=== PATIENT | female | born 1960 | race Caucasian/White ===

== ENCOUNTER 2016-05-13 10:45 | Outpatient (CLI) | payer MEDICARE, OTHER | END 2016-05-13 10:46 | disposition home or self-care (01) | DX: E11.65 Type 2 diabetes mellitus with hyperglycemia (principal) ==

== ENCOUNTER 2016-08-20 08:50 | Outpatient (CLI) | payer MEDICARE, OTHER ==
[2016-08-20 20:30] LABS: HEMOGLOBIN A1C 1.14 g/dL
== END 2016-08-20 08:51 | disposition home or self-care (01) ==
LOC: LAB.N 08:50
PROVIDERS: ATTEND Nurse Practitioner Gerontology
DX: E11.65 Type 2 diabetes mellitus with hyperglycemia (principal)
CPT/HCPCS: 36415; 83036

== ENCOUNTER 2016-12-10 08:00 | Outpatient (CLI) | payer MEDICARE, OTHER ==
[2016-12-10 21:06] LABS: HEMOGLOBIN A1C 0.97 g/dL
== END 2016-12-10 08:01 | disposition home or self-care (01) ==
LOC: LAB.N 08:00
PROVIDERS: ATTEND Nurse Practitioner Gerontology
DX: E11.65 Type 2 diabetes mellitus with hyperglycemia (principal)
CPT/HCPCS: 36415; 83036

== ENCOUNTER 2017-05-30 18:32 | Outpatient (CLI) | payer MEDICARE, OTHER | END 2017-05-30 18:33 | disposition short-term general hospital (02) | LOC: EMS 18:32 | PROVIDERS: ATTEND Surgery | DX: M25.542 Pain in joints of left hand (principal); M25.531 Pain in right wrist | CPT/HCPCS: A0425; A0429; A0888 ==

== ENCOUNTER 2017-06-20 08:00 | Outpatient (CLI) | payer MEDICARE, OTHER ==
[2017-06-20 18:45] LABS: BASOPHILS % (AUTO) 0.2 %; EOSINOPHILS # (AUTO) 0.1 10^3/uL (0.0-0.7); EOSINOPHILS % (AUTO) 1.7 %; HGB - HEMOGLOBIN 13.2 g/dL (12.0-16.0); LYMPHOCYTES # (AUTO) 3.6 10^3/uL (1.5-3.5); LYMPHOCYTES % (AUTO) 43.7 %; MEAN CORPUSCULAR HEMOGLOBIN 27.4 pg (27.0-31.0); MEAN CORPUSCULAR HGB CONC 32.1 g/dL (32.0-36.0); MEAN CORPUSCULAR VOLUME 85.4 fL (81.0-99.0); MEAN PLATELET VOLUME 8.4 fL (7.9-10.8); MONOCYTES # (AUTO) 0.4 10^3/uL (0.0-1.0); MONOCYTES % (AUTO) 5.2 %; NEUTROPHILS # (AUTO) 4.1 10^3/uL (1.5-6.6); NEUTROPHILS % (AUTO) 49.2 %; PLT - PLATELET COUNT 355 10^3/uL (130-450); WHITE BLOOD COUNT 8.2 x10^3/uL (4.8-10.8)
[2017-06-20 19:19] LABS: ALBUMIN 3.6 g/dL (3.2-5.5); ALBUMIN/GLOBULIN RATIO 0.9 (1.0-2.2); ALKALINE PHOSPHATASE 175 IU/L (42-121); ALT ALANINE AMINOTRANSFERASE 19 IU/L (10-60); AST ASPARTATE AMINOTRANSFERASE 22 IU/L (10-42); BILIRUBIN,TOTAL < 0.2 mg/dL (0.2-1.0); BUN - BLOOD UREA NITROGEN 12 mg/dL (6-20); CALCIUM 8.5 mg/dL (8.5-10.3); CARBON DIOXIDE - CO2 25 mmol/L (21-32); CHLORIDE 106 mmol/L (101-111); CHOL/HDL RATIO 3.3 (<4.4); CHOLESTEROL 182 mg/dL; CREATININE 0.5 mg/dL (0.4-1.0); GFR - MDRD 129 (>89); GLUCOSE 217 mg/dL (70-100); HDL CHOLESTEROL 56 mg/dL; LDL CHOLESTEROL,CALCULATED 81 mg/dL; LDL/HDL RATIO 1.4 (<4.4); SODIUM 134 mmol/L (135-145); TOTAL PROTEIN 7.8 g/dL (6.7-8.2); VLDL CHOLESTEROL 45 mg/dL
[2017-06-20 19:56] LABS: HEMOGLOBIN A1C 1.28 g/dL
== END 2017-06-20 08:01 | disposition home or self-care (01) ==
LOC: LAB.N 08:00
PROVIDERS: ATTEND Nurse Practitioner Gerontology
DX: I10 Essential (primary) hypertension (principal); E11.65 Type 2 diabetes mellitus with hyperglycemia
CPT/HCPCS: 36415; 80053; 80061; 83036; 83721; 84443; 85025

== ENCOUNTER 2017-06-23 09:15 | Outpatient (CLI) | payer MEDICARE, OTHER | END 2017-06-23 09:30 | disposition home or self-care (01) | LOC: RT.N 09:15 | PROVIDERS: ATTEND Nurse Practitioner Gerontology | DX: Z01.810 Encounter for preprocedural cardiovascular examination (principal); I10 Essential (primary) hypertension; E11.65 Type 2 diabetes mellitus with hyperglycemia | CPT/HCPCS: 93005 ==

== ENCOUNTER 2018-01-09 08:00 | Outpatient (CLI) | payer MEDICARE, OTHER ==
[2018-01-09 18:52] LABS: BASOPHILS % (AUTO) 0.6 %; EOSINOPHILS # (AUTO) 0.1 10^3/uL (0.0-0.7); EOSINOPHILS % (AUTO) 1.8 %; LYMPHOCYTES # (AUTO) 3.1 10^3/uL (1.5-3.5); LYMPHOCYTES % (AUTO) 43.7 %; MEAN CORPUSCULAR HGB CONC 32.9 g/dL (32.0-36.0); MEAN CORPUSCULAR VOLUME 88.4 fL (81.0-99.0); MEAN PLATELET VOLUME 8.7 fL (7.9-10.8); MONOCYTES # (AUTO) 0.4 10^3/uL (0.0-1.0); MONOCYTES % (AUTO) 6.1 %; NEUTROPHILS # (AUTO) 3.4 10^3/uL (1.5-6.6); NEUTROPHILS % (AUTO) 47.8 %; PLT - PLATELET COUNT 305 10^3/uL (130-450); RED BLOOD COUNT 4.81 10^6/uL (4.20-5.40); RED CELL DISTRIBUTION WIDTH 14.2 % (12.0-15.0); WHITE BLOOD COUNT 7.2 x10^3/uL (4.8-10.8)
[2018-01-09 19:20] LABS: ALBUMIN 3.6 g/dL (3.2-5.5); ALBUMIN/GLOBULIN RATIO 0.9 (1.0-2.2); ALKALINE PHOSPHATASE 132 IU/L (42-121); ALT ALANINE AMINOTRANSFERASE 23 IU/L (10-60); AST ASPARTATE AMINOTRANSFERASE 24 IU/L (10-42); BILIRUBIN,TOTAL 0.9 mg/dL (0.2-1.0); BUN - BLOOD UREA NITROGEN 13 mg/dL (6-20); CHOLESTEROL 173 mg/dL; CREATININE 0.4 mg/dL (0.4-1.0); GFR - MDRD 166 (>89); HDL CHOLESTEROL 58 mg/dL; LDL CHOLESTEROL,CALCULATED 95 mg/dL; LDL/HDL RATIO 1.6 (<4.4); MAGNESIUM 1.9 mg/dL (1.7-2.8); TOTAL PROTEIN 7.5 g/dL (6.7-8.2); VLDL CHOLESTEROL 20 mg/dL
[2018-01-09 19:31] LABS: HB2 TOTAL 14.4 g/dL; HEMOGLOBIN A1C 1.47 g/dL; HEMOGLOBIN A1C % 11.5 % (4.6-6.2)
[2018-01-09 19:34] LABS: CALCIUM 8.6 mg/dL (8.5-10.3); CARBON DIOXIDE - CO2 24 mmol/L (21-32); CHLORIDE 102 mmol/L (101-111); GLUCOSE 256 mg/dL (70-100); SODIUM 135 mmol/L (135-145)
== END 2018-01-09 23:59 | disposition home or self-care (01) ==
LOC: LAB.N 08:00
PROVIDERS: ATTEND Internal Medicine Cardiovascular Disease
DX: I45.10 Unspecified right bundle-branch block (principal); Z13.220 Encounter for screening for lipoid disorders; E11.9 Type 2 diabetes mellitus without complications; I10 Essential (primary) hypertension; E11.65 Type 2 diabetes mellitus with hyperglycemia
CPT/HCPCS: 36415; 80053; 80061; 83036; 83721; 83735; 84443; 85025

== ENCOUNTER 2018-07-13 08:00 | Outpatient (CLI) | payer MEDICARE, OTHER ==
[2018-07-13 14:49] LABS: HB2 TOTAL 14.1 g/dL; HEMOGLOBIN A1C 1.51 g/dL; HEMOGLOBIN A1C % 11.9 % (4.6-6.2)
== END 2018-07-13 23:59 | disposition home or self-care (01) ==
LOC: LAB.N 08:00
PROVIDERS: ATTEND Nurse Practitioner Gerontology
DX: E11.8 Type 2 diabetes mellitus with unspecified complications (principal)
CPT/HCPCS: 36415; 83036

== ENCOUNTER 2019-07-14 13:30 | Outpatient (CLI) | payer MEDICARE, OTHER ==
[2019-07-14 17:47] LABS: BASOPHILS % (AUTO) 0.2 %; EOSINOPHILS # (AUTO) 0.1 10^3/uL (0.0-0.7); EOSINOPHILS % (AUTO) 1.5 %; HGB - HEMOGLOBIN 13.9 g/dL (12.0-16.0); LYMPHOCYTES # (AUTO) 3.3 10^3/uL (1.5-3.5); LYMPHOCYTES % (AUTO) 39.4 %; MEAN CORPUSCULAR HGB CONC 32.6 g/dL (32.0-36.0); MEAN PLATELET VOLUME 10.7 fL (7.9-10.8); MONOCYTES # (AUTO) 0.4 10^3/uL (0.0-1.0); MONOCYTES % (AUTO) 5.1 %; NEUTROPHILS # (AUTO) 4.5 10^3/uL (1.5-6.6); NEUTROPHILS % (AUTO) 53.6 %; PLT - PLATELET COUNT 307 10^3/uL (130-450); RED CELL DISTRIBUTION WIDTH 13.5 % (12.0-15.0); WHITE BLOOD COUNT 8.4 x10^3/uL (4.8-10.8)
[2019-07-14 18:23] LABS: ALBUMIN 3.4 g/dL (3.2-5.5); ALBUMIN/GLOBULIN RATIO 0.9 (1.0-2.2); ALKALINE PHOSPHATASE 129 IU/L (42-121); ALT ALANINE AMINOTRANSFERASE 26 IU/L (10-60); AST ASPARTATE AMINOTRANSFERASE 25 IU/L (10-42); BILIRUBIN,TOTAL 0.8 mg/dL (0.2-1.0); BUN - BLOOD UREA NITROGEN 16 mg/dL (6-20); CALCIUM 8.7 mg/dL (8.5-10.3); CARBON DIOXIDE - CO2 27 mmol/L (21-32); CHLORIDE 103 mmol/L (101-111); CHOL/HDL RATIO 3.3 (<4.4); CHOLESTEROL 181 mg/dL; CREATININE 0.5 mg/dL (0.4-1.0); GLUCOSE 430 mg/dL (70-100); HDL CHOLESTEROL 55 mg/dL; LDL CHOLESTEROL,CALCULATED 93 mg/dL; LDL/HDL RATIO 1.7 (<4.4); SODIUM 136 mmol/L (135-145); TOTAL PROTEIN 7.4 g/dL (6.7-8.2); VLDL CHOLESTEROL 33 mg/dL
[2019-07-14 18:25] LABS: HB2 TOTAL 14.4 g/dL; HEMOGLOBIN A1C 1.58 g/dL; HEMOGLOBIN A1C % 12.2 % (4.6-6.2)
[2019-07-14 18:28] LABS: CREATININE,URINE 28.2 mg/dL
[2019-07-14 18:31] LABS: MICROALBUMIN,URINE < 0.2 mg/dL (0-300.0)
== END 2019-07-14 23:59 | disposition home or self-care (01) ==
LOC: LAB.WCP 13:30
PROVIDERS: ATTEND Family Medicine
DX: E11.65 Type 2 diabetes mellitus with hyperglycemia (principal)
CPT/HCPCS: 36415; 80053; 80061; 82043; 82570; 83036; 83721; 84443; 85025

== ENCOUNTER 2019-11-19 13:30 | Outpatient (CLI) | payer MEDICARE, OTHER ==
[2019-11-19 13:53] LABS: CREATININE 0.7 mg/dL (0.4-1.0)
[2019-11-19] MEDS ORDERED: GADOBUTROL 10 MMOL/10 ML VIAL ONE (16:11)
[2019-11-19] MEDS ORDERED: GADOBUTROL 10 MMOL/10 ML VIAL IVP ONE (16:18)
--- NOTE | 2019-11-19 16:53 | MRI Report ---
PROCEDURE: Brain W/WO INDICATIONS: HX OF CVA/DIPLOPIA CONTRAST: IV CONTRAST: Gadavist ml: 10 TECHNIQUE: Noncontrast axial T1 spin echo, axial T2 fast spin echo, sagittal and axial FLAIR, coronal T2 fast sp in echo, axial gradient echo, axial diffusion and ADC through the brain. After the administration of contrast, axial and coronal T1 spin echo with fat saturation through the brain. COMPARISON: None. FINDINGS: Image quality: Excellent. CSF spaces: Basal cisterns are patent. No extra-axial fluid collections. Ventricles are normal in size and shape. Brain: No midline shift. No intracranial bleeds or masses. No abnormal intracranial enhancement. There is cerebral volume loss for age. There is periventricular white matter chronic small vessel is chemic change. The brainstem appears normal. Diffusion-weighted images demonstrate no acute ischemi c insults. No chronic ischemic insults. Normal intravascular flow voids are present. Skull and face: Right frontal calvarial enhancement measuring 9 mm is technically indeterminate. Orb its appear normal. Sinuses: Sinuses and mastoids appear clear. IMPRESSION: No acute intracranial abnormality or abnormal enhancement. No evidence of acute ischemia . Diffuse, scattered nonspecific white matter signal changes, statistically represent chronic microvasc ular ischemic disease although differential includes neurodegenerative, infectious/inflammatory, demy elinating etiologies among other possibilities. Nonspecific small focus of right frontal calvarial enhancement Reviewed by: Erasmo Ramirez MD on 11/19/2019 4:52 PM PDT Approved by: Erasmo Ramirez MD on 11/19/2019 4:52 PM PDT Station ID: [id number]
--- NOTE | 2019-11-22 12:01 | MRI Report ---
PROCEDURE: 1. MR angiography of the head. 2. MR angiography of the neck. INDICATIONS: HX OF CVA/DIPLOPIA CONTRAST: Intravenous gadolinium. TECHNIQUE: Brain MRA: Non-contrast 3-D time of flight MR angiogram, with multiple lbynewt-wlwretygx-xispabqkqj (MIP) reformats performed. Neck MRA: Axial and sagittal TruFISP through the neck. Coronal dynamic MR angiogram during administ ration of contrast in the arterial and venous phases, with 3-dimenstional wigclaz-nrsfolhvx-moxvdnowq n (MIP) reformats constructed from subtraction images. COMPARISON: None. FINDINGS: Image quality: Excellent. BRAIN MR ANGIOGRAM: Anterior circulation: Intracranial internal carotid arteries are normal in size and enhancement. Th e flow within the paired anterior cerebral arteries is normal and symmetric. The flow within the mid dle cerebral arteries is normal and symmetric. The anterior communicating artery is seen. No stenos es, occlusions, or aneurysms. Posterior circulation: The visualized portions of the vertebral arteries demonstrate normal caliber. The right vertebral artery terminates in a posterior inferior cerebellar artery. Basilar artery is p atent. The flow within the posterior cerebral arteries is normal and symmetric. No stenoses, occlusi ons, or aneurysms. NECK MR ANGIOGRAM: The mid and distal common carotid arteries are patent. Bilateral internal and axial carotid arteries are patent. Visualized portions of the vertebral arteries are patent. No aneurysm or significant sten osis. Visualized soft tissues of the neck are within normal limits. IMPRESSION: BRAIN MR ANGIOGRAM: Negative cerebral MR angiography. NECK MR ANGIOGRAM: 1. No internal carotid artery stenosis bilaterally. 2. Visualized portions of the vertebral arteries are patent. The estimate of stenosis included in the report of the imaging study was calculated using the NASCET method Reviewed by: Preeti Yan MD on 11/22/2019 12:00 PM PDT Approved by: Preeti Yan MD on 11/22/2019 12:00 PM PDT Station ID: [id number]
== END 2019-11-19 13:31 | disposition home or self-care (01) ==
LOC: DI 13:30
PROVIDERS: ATTEND Family Medicine
DX: H53.2 Diplopia (principal); Z86.73 Personal history of transient ischemic attack (TIA), and cerebral infarction without residual deficits
CPT/HCPCS: 36415; 70547; 70553; 82565; A9585

== ENCOUNTER 2020-06-05 08:00 | Outpatient (CLI) | payer MEDICARE, OTHER ==
[2020-06-05 18:35] LABS: BASOPHILS % (AUTO) 0.1 %; EOSINOPHILS # (AUTO) 0.1 10^3/uL (0.0-0.7); HCT - HEMATOCRIT 44.7 % (37.0-47.0); HGB - HEMOGLOBIN 14.6 g/dL (12.0-16.0); LYMPHOCYTES # (AUTO) 2.8 10^3/uL (1.5-3.5); LYMPHOCYTES % (AUTO) 39.3 %; MEAN CORPUSCULAR HEMOGLOBIN 28.9 pg (27.0-31.0); MEAN CORPUSCULAR HGB CONC 32.7 g/dL (32.0-36.0); MEAN CORPUSCULAR VOLUME 88.5 fL (81.0-99.0); MEAN PLATELET VOLUME 10.5 fL (7.9-10.8); MONOCYTES # (AUTO) 0.4 10^3/uL (0.0-1.0); MONOCYTES % (AUTO) 5.1 %; NEUTROPHILS # (AUTO) 3.9 10^3/uL (1.5-6.6); NEUTROPHILS % (AUTO) 54.4 %; PLT - PLATELET COUNT 327 10^3/uL (130-450); RED BLOOD COUNT 5.05 10^6/uL (4.20-5.40); RED CELL DISTRIBUTION WIDTH 13.4 % (12.0-15.0); WHITE BLOOD COUNT 7.2 x10^3/uL (4.8-10.8)
[2020-06-05 19:10] LABS: ALBUMIN 3.8 g/dL (3.2-5.5); ALKALINE PHOSPHATASE 129 IU/L (42-121); ALT ALANINE AMINOTRANSFERASE 24 IU/L (10-60); AST ASPARTATE AMINOTRANSFERASE 23 IU/L (10-42); BUN - BLOOD UREA NITROGEN 17 mg/dL (6-20); CALCIUM 9.1 mg/dL (8.5-10.3); CARBON DIOXIDE - CO2 25 mmol/L (21-32); CHLORIDE 100 mmol/L (101-111); CHOL/HDL RATIO 3.2 (<4.4); CHOLESTEROL 186 mg/dL; CREATININE 0.5 mg/dL (0.4-1.0); GFR - MDRD 127 (>89); GLUCOSE 365 mg/dL (70-100); HDL CHOLESTEROL 59 mg/dL; LDL CHOLESTEROL,CALCULATED 103 mg/dL; LDL/HDL RATIO 1.7 (<4.4); POTASSIUM 4.2 mmol/L (3.5-5.0); SODIUM 134 mmol/L (135-145); TOTAL PROTEIN 7.7 g/dL (6.7-8.2); TRIGLYCERIDES 120 mg/dL; VLDL CHOLESTEROL 24 mg/dL
[2020-06-05 19:22] LABS: THYROID STIMULATING HORMONE 1.64 uIU/mL (0.34-5.60)
[2020-06-05 20:06] LABS: ESTIMATED AVERAGE GLUCOSE 289 mg/dL (70-100); HEMOGLOBIN A1c% 11.7 % (4.27-6.07)
== END 2020-06-05 23:59 | disposition home or self-care (01) ==
LOC: LAB.WCP 08:00
PROVIDERS: ATTEND Family Medicine
DX: E11.8 Type 2 diabetes mellitus with unspecified complications (principal)
CPT/HCPCS: 36415; 80053; 80061; 83036; 83721; 84443; 85025

== ENCOUNTER 2020-10-05 08:00 | Outpatient (CLI) | payer MEDICARE, OTHER ==
[2020-10-05 17:59] LABS: BASOPHILS % (AUTO) 0.2 %; EOSINOPHILS # (AUTO) 0.1 10^3/uL (0.0-0.7); EOSINOPHILS % (AUTO) 1.6 %; HCT - HEMATOCRIT 43.8 % (37.0-47.0); HGB - HEMOGLOBIN 13.9 g/dL (12.0-16.0); LYMPHOCYTES # (AUTO) 3.7 10^3/uL (1.5-3.5); LYMPHOCYTES % (AUTO) 41.3 %; MEAN CORPUSCULAR HEMOGLOBIN 28.7 pg (27.0-31.0); MEAN CORPUSCULAR HGB CONC 31.7 g/dL (32.0-36.0); MEAN CORPUSCULAR VOLUME 90.3 fL (81.0-99.0); MONOCYTES # (AUTO) 0.6 10^3/uL (0.0-1.0); MONOCYTES % (AUTO) 6.6 %; NEUTROPHILS # (AUTO) 4.5 10^3/uL (1.5-6.6); PLT - PLATELET COUNT 378 10^3/uL (130-450); RED BLOOD COUNT 4.85 10^6/uL (4.20-5.40); RED CELL DISTRIBUTION WIDTH 13.6 % (12.0-15.0)
[2020-10-05 18:19] LABS: ALBUMIN 3.7 g/dL (3.2-5.5); ALBUMIN/GLOBULIN RATIO 0.8 (1.0-2.2); ALKALINE PHOSPHATASE 100 IU/L (42-121); ALT ALANINE AMINOTRANSFERASE 21 IU/L (10-60); AST ASPARTATE AMINOTRANSFERASE 22 IU/L (10-42); BILIRUBIN,TOTAL 0.8 mg/dL (0.2-1.0); BUN - BLOOD UREA NITROGEN 11 mg/dL (6-20); CHOL/HDL RATIO 3.2 (<4.4); CHOLESTEROL 183 mg/dL; CREATININE 0.7 mg/dL (0.4-1.0); GFR - MDRD 86 (>89); HDL CHOLESTEROL 58 mg/dL; LDL CHOLESTEROL,CALCULATED 101 mg/dL; LDL/HDL RATIO 1.7 (<4.4); TOTAL PROTEIN 8.2 g/dL (6.7-8.2); TRIGLYCERIDES 119 mg/dL; VLDL CHOLESTEROL 24 mg/dL
[2020-10-05 18:37] LABS: CALCIUM 9.7 mg/dL (8.5-10.3); CARBON DIOXIDE - CO2 27 mmol/L (21-32); CHLORIDE 98 mmol/L (101-111); GLUCOSE 133 mg/dL (70-100); POTASSIUM 4.4 mmol/L (3.5-5.0); SODIUM 138 mmol/L (135-145)
[2020-10-05 21:14] LABS: ESTIMATED AVERAGE GLUCOSE 200 mg/dL (70-100); HEMOGLOBIN A1c% 8.6 % (4.27-6.07)
== END 2020-10-05 23:59 | disposition home or self-care (01) ==
LOC: LAB.WCP 08:00
PROVIDERS: ATTEND Family Medicine
DX: E11.8 Type 2 diabetes mellitus with unspecified complications (principal)
CPT/HCPCS: 36415; 80053; 80061; 83036; 83721; 85025

== ENCOUNTER 2021-01-15 08:00 | Outpatient (CLI) | payer MEDICARE, OTHER ==
[2021-01-15 12:02] LABS: ESTIMATED AVERAGE GLUCOSE 160 mg/dL (70-100); HEMOGLOBIN A1c% 7.2 % (4.27-6.07)
[2021-01-15 12:43] LABS: ALBUMIN 3.8 g/dL (3.2-5.5); ALBUMIN/GLOBULIN RATIO 0.9 (1.0-2.2); ALKALINE PHOSPHATASE 96 IU/L (42-121); ALT ALANINE AMINOTRANSFERASE 15 IU/L (10-60); AST ASPARTATE AMINOTRANSFERASE 17 IU/L (10-42); BILIRUBIN,TOTAL 0.8 mg/dL (0.2-1.0); BUN - BLOOD UREA NITROGEN 15 mg/dL (6-20); CALCIUM 9.2 mg/dL (8.5-10.3); CARBON DIOXIDE - CO2 26 mmol/L (21-32); CHLORIDE 105 mmol/L (101-111); CHOL/HDL RATIO 3.1 (<4.4); CHOLESTEROL 171 mg/dL; CREATININE 0.6 mg/dL (0.4-1.0); GFR - MDRD 103 (>89); GLUCOSE 141 mg/dL (70-100); HDL CHOLESTEROL 56 mg/dL; LDL CHOLESTEROL,CALCULATED 95 mg/dL; LDL/HDL RATIO 1.7 (<4.4); POTASSIUM 4.2 mmol/L (3.5-5.0); SODIUM 141 mmol/L (135-145); TOTAL PROTEIN 7.9 g/dL (6.7-8.2); TRIGLYCERIDES 102 mg/dL; VLDL CHOLESTEROL 20 mg/dL
== END 2021-01-15 23:59 | disposition home or self-care (01) ==
LOC: LAB.WCP 08:00
PROVIDERS: ATTEND Family Medicine
DX: E11.8 Type 2 diabetes mellitus with unspecified complications (principal)
CPT/HCPCS: 36415; 80053; 80061; 83036; 83721

== ENCOUNTER 2021-02-02 08:00 | Outpatient (CLI) | payer MEDICARE, OTHER ==
--- NOTE | 2021-02-02 21:49 | XRAY Report ---
PROCEDURE: Forearm RT INDICATIONS: RIGHT ARM/WRIST PAIN TECHNIQUE: 2 views of the forearm were acquired. COMPARISON: None. FINDINGS: Bones: No acute fractures or dislocations. No suspicious bony lesions. Soft tissues: No suspicious soft tissue calcifications or masses. Mild soft tissue edema is seen in the forearm. IMPRESSION: No acute osseous abnormality. If there is clinical concern or persistent symptoms, additional imaging such as repeat radiographs or advanced imaging (e.g. CT, MRI) may be helpful for further evaluation. Reviewed by: Brennan Burroughs MD on 02/02/2021 9:48 PM PST Approved by: Brennan Burroughs MD on 02/02/2021 9:48 PM PST Station ID: [id number]
--- NOTE | 2021-02-02 21:50 | XRAY Report ---
PROCEDURE: Wrist 3 View RT INDICATIONS: RIGHT ARM/WRIST PAIN TECHNIQUE: 3 views of the wrist were acquired. COMPARISON: None. FINDINGS: Bones: No acute fractures or dislocations. No suspicious bony lesions. Degenerative changes are se en at the triscaphe joint. Soft tissues: No suspicious soft tissue calcifications. Mild soft tissue edema is seen in the wrist and hand. IMPRESSION: No acute osseous abnormality. If there is clinical concern or persistent symptoms, additional imaging such as repeat radiographs or advanced imaging (e.g. CT, MRI) may be helpful for further evaluation. Reviewed by: Brennan Burroughs MD on 02/02/2021 9:49 PM PST Approved by: Brennan Burroughs MD on 02/02/2021 9:49 PM PST Station ID: [id number]
== END 2021-02-02 23:59 | disposition home or self-care (01) ==
LOC: DI.N 08:00
PROVIDERS: ATTEND Physician Assistant
DX: M79.601 Pain in right arm (principal)

== ENCOUNTER 2021-03-01 11:00 | Outpatient (CLI) | payer MEDICARE, OTHER ==
--- NOTE | 2021-03-01 11:48 | XRAY Report ---
PROCEDURE: Forearm RT INDICATIONS: CONTUSION OF R FOREARM TECHNIQUE: 2 views of the forearm were acquired. COMPARISON: 02/02/2021 FINDINGS: Bones: There is a nondisplaced oblique fracture involving the distal right ulna with reactive changes of fracture healing noted by periosteal reaction. Distal radius not well imaged. No suspicious bony lesions. Soft tissues: No suspicious soft tissue calcifications or masses. IMPRESSION: Nondisplaced distal right ulnar fracture at the level of the distal radioulnar joint. The distal right radius is not well visualized on this study. Consider further evaluation with manolo hurst right wrist radiographic series. Reviewed by: Ezequiel Adams MD on 03/01/2021 11:46 AM PST Approved by: Ezequiel Adams MD on 03/01/2021 11:46 AM PST Station ID: [id number]
== END 2021-03-01 23:59 | disposition home or self-care (01) ==
LOC: DI.N 11:00
PROVIDERS: ATTEND Physician Assistant
DX: S52.601A Unspecified fracture of lower end of right ulna, initial encounter for closed fracture (principal)

== ENCOUNTER 2022-04-05 07:44 | Outpatient (CLI) | payer MEDICARE, OTHER ==
[2022-04-05 12:27] LABS: BASOPHILS % (AUTO) 0.3 %; EOSINOPHILS # (AUTO) 0.1 10^3/uL (0.0-0.7); EOSINOPHILS % (AUTO) 1.9 %; HCT - HEMATOCRIT 45.8 % (37.0-47.0); HGB - HEMOGLOBIN 14.9 g/dL (12.0-16.0); LYMPHOCYTES # (AUTO) 3.1 10^3/uL (1.5-3.5); LYMPHOCYTES % (AUTO) 45.2 %; MEAN CORPUSCULAR HEMOGLOBIN 28.9 pg (27.0-31.0); MEAN CORPUSCULAR HGB CONC 32.5 g/dL (32.0-36.0); MEAN CORPUSCULAR VOLUME 88.8 fL (81.0-99.0); MEAN PLATELET VOLUME 10.9 fL (7.9-10.8); MONOCYTES # (AUTO) 0.4 10^3/uL (0.0-1.0); MONOCYTES % (AUTO) 6.2 %; NEUTROPHILS # (AUTO) 3.2 10^3/uL (1.5-6.6); NEUTROPHILS % (AUTO) 46.3 %; PLT - PLATELET COUNT 299 10^3/uL (130-450); RED BLOOD COUNT 5.16 10^6/uL (4.20-5.40); RED CELL DISTRIBUTION WIDTH 13.2 % (12.0-15.0); WHITE BLOOD COUNT 6.9 x10^3/uL (4.8-10.8)
[2022-04-05 12:31] LABS: CREATININE,URINE 114.2 mg/dL; MICROALBUM/CREATININE RATIO,UR 46.4 ug/mg (<30.0); MICROALBUMIN,URINE 5.3 mg/dL (0-300.0)
[2022-04-05 12:37] LABS: ALBUMIN 3.6 g/dL (3.2-5.5); ALBUMIN/GLOBULIN RATIO 0.9 (1.0-2.2); ALKALINE PHOSPHATASE 131 IU/L (42-121); ALT ALANINE AMINOTRANSFERASE 35 IU/L (10-60); AST ASPARTATE AMINOTRANSFERASE 25 IU/L (10-42); BILIRUBIN,TOTAL 0.7 mg/dL (0.2-1.0); BUN - BLOOD UREA NITROGEN 12 mg/dL (6-20); CALCIUM 9.1 mg/dL (8.5-10.3); CARBON DIOXIDE - CO2 27 mmol/L (21-32); CHLORIDE 99 mmol/L (101-111); CHOL/HDL RATIO 2.5 (<4.4); CHOLESTEROL 173 mg/dL; CREATININE 0.5 mg/dL (0.4-1.0); GFR - MDRD 126 (>89); GLUCOSE 336 mg/dL (70-100); HDL CHOLESTEROL 69 mg/dL; LDL CHOLESTEROL,CALCULATED 85 mg/dL; LDL/HDL RATIO 1.2 (<4.4); SODIUM 135 mmol/L (135-145); TOTAL PROTEIN 7.7 g/dL (6.7-8.2); TRIGLYCERIDES 96 mg/dL; VLDL CHOLESTEROL 19 mg/dL
[2022-04-05 12:48] LABS: THYROID STIMULATING HORMONE 2.32 uIU/mL (0.34-5.60)
[2022-04-05 12:49] LABS: ESTIMATED AVERAGE GLUCOSE 344 mg/dL (70-100); HEMOGLOBIN A1c% 13.6 % (4.27-6.07)
== END 2022-04-05 07:45 | disposition home or self-care (01) ==
LOC: LAB.N 07:44
PROVIDERS: ATTEND Physician Assistant
DX: E11.9 Type 2 diabetes mellitus without complications (principal)
CPT/HCPCS: 36415; 80053; 80061; 82043; 82570; 83036; 83721; 84443; 85025

== ENCOUNTER 2022-07-05 15:25 | Outpatient (CLI) | payer MEDICARE, OTHER | END 2022-07-05 23:59 | disposition short-term general hospital (02) | LOC: EMS 15:25 | DX: S89.92XA Unspecified injury of left lower leg, initial encounter (principal); R51.9 Headache, unspecified; W01.190A Fall on same level from slipping, tripping and stumbling with subsequent striking against furniture, initial encounter; Y93.01 Activity, walking, marching and hiking; Y92.511 Restaurant or cafe as the place of occurrence of the external cause | CPT/HCPCS: A0425; A0427 ==

== ENCOUNTER 2022-08-05 16:48 | Outpatient (CLI) | payer MEDICARE, OTHER | END 2022-08-05 16:49 | disposition critical access hospital (66) | LOC: EMS 16:48 | DX: E11.65 Type 2 diabetes mellitus with hyperglycemia (principal); R42 Dizziness and giddiness; R06.00 Dyspnea, unspecified; R11.0 Nausea; R00.0 Tachycardia, unspecified; S01.81XA Laceration without foreign body of other part of head, initial encounter; W18.39XA Other fall on same level, initial encounter; Y93.E9 Activity, other interior property and clothing maintenance; Y92.038 Other place in apartment as the place of occurrence of the external cause | CPT/HCPCS: A0425; A0427 ==

== ENCOUNTER 2022-08-05 17:05 | Emergency (ER) | payer MEDICARE, OTHER ==
[2022-08-05] MEDS ORDERED: SODIUM CHLORIDE 0.9% 1,000 ML IV STA ×2 (17:28)
--- NOTE | 2022-08-05 17:29 | ED Physician Documentation ---
History of Present Illness - Stated complaint Stated Complaint: GLF - Chief complaint Chief Complaint: Trauma Hd/Nk - History obtained from History obtained from: Patient - History of Present Illness Timing: Today Pain level max: 5 Pain level now: 5 - Additonal information Additional information: 61-year-old female presents to the emergency department Stating that she had a syncopal event today. She states she was at home when she felt lightheaded, dizzy and passed out. She states that she has been dealing with intermittent dizziness for several months, she had a cardiac event monitor with her supervisor phosphoric acid at [facility] but does not know the results. She states that 2 weeks ago she had a surgery on her left patella and has been in a knee immobilizer since that time. She states that she currently feels mildly short of breath. No cough. No congestion. She is not having any chest pain. She is complaining of a laceration to the left chin. She also complains of pain to the left ribs. No neck or back pain. No hip pain. Worse with movement, better with rest. She is not on anticoagulants. She is diabetic. Review of Systems Constitutional: denies: Fever, Chills Nose: denies: Rhinorrhea / runny nose, Congestion Cardiac: denies: Palpitations Respiratory: denies: Cough GI: denies: Abdominal Pain, Nausea, Vomiting, Diarrhea Skin: denies: Rash Musculoskeletal: denies: Neck pain, Back pain Neurologic: denies: Focal weakness, Numbness, Confused, Headache PD PAST MEDICAL HISTORY - Past Medical History Past Medical History: Yes Cardiovascular: Hypertension Endocrine/Autoimmune: Type 2 diabetes - Past Surgical History Past Surgical History: Yes Other past surgical history: L knee surgery - Allergies Allergies/Adverse Reactions: Allergies Allergy/AdvReac Type Severity Reaction Status Date / Time No Known Drug Allergies Allergy Verified 08/05/22 17:20 - Living Situation Living Situation: reports: With family Living Arrangement: reports: At home - Social History Does the pt have substance abuse?: No - Family History Family history: reports: Non contributory PD ED PE NORMAL - Vitals Vital signs reviewed: Yes - General General: Alert and oriented X 3, No acute distress, Well developed/nourished - HEENT HEENT: PERRL, Moist mucous membranes, Pharynx benign, Other (2 cm laceration to the left lower chin. There is also an inner laceration along the gingiva, lower lip. There is also a small laceration vertically on the left upper lip.) - Neck Neck: Supple, no meningeal sign, No bony TTP - Cardiac Cardiac: RRR, Strong equal pulses - Respiratory Respiratory: No respiratory distress, Clear bilaterally, Other (TTP over the L Lower ribs. no crepitus or ecchymosis.) - Abdomen Abdomen: Soft, Non tender, Non distended - Back Back: No spinal TTP - Derm Derm: Warm and dry - Extremities Extremities: No edema, No calf tenderness / cord, Other (LLE in a knee immobilizer) - Neuro Neuro: Alert and oriented X 3, video operator 2-12 intact, No motor deficit, No sensory deficit, Normal speech - Psych Psych: Normal mood, Normal affect Results - Vitals Vitals: Vital Signs - 24 hr 08/05/22 08/05/22 08/05/22 17:14 18:15 18:30 Temperature 36.5 C Heart Rate 85 90 89 Respiratory 22 16 16 Rate Blood Pressure 103/79 122/82 H 112/75 O2 Saturation 89 L 95 93 If not protocol 2 2 : Oxygen Flow, liters/minute 08/05/22 08/05/22 08/05/22 19:00 19:44 20:19 Temperature Heart Rate 85 95 93 Respiratory 16 22 28 H Rate Blood Pressure 122/81 H 104/77 108/81 H O2 Saturation 96 96 94 If not protocol : Oxygen Flow, liters/minute 08/05/22 08/05/22 08/05/22 20:30 21:00 21:09 Temperature Heart Rate 93 92 Respiratory 26 H 30 H Rate Blood Pressure 96/63 96/63 O2 Saturation 92 88 L 92 If not protocol 2 : Oxygen Flow, liters/minute 08/05/22 08/05/22 21:47 22:12 Temperature Heart Rate 93 93 Respiratory 31 H 25 H Rate Blood Pressure 120/82 H 119/83 H O2 Saturation 94 95 If not protocol 2 2 : Oxygen Flow, liters/minute Oxygen O2 Source Nasal cannula - EKG (time done) 1730 EKG releavant findings:: EKG personally interpreted by author of this note. Relevant findings are: Rate: Rate (enter#) (86) Rhythm: NSR Intervals: RBBB Compare to prior EKG: Unchanged from prior EKG (2018) - Labs Labs: Laboratory Tests 08/05/22 08/05/22 08/05/22 17:56 17:56 17:56 WBC 12.1 H RBC 4.68 Hgb 13.6 Hct 41.8 MCV 89.3 MCH 29.1 MCHC 32.5 RDW 14.0 Plt Count 184 MPV 9.7 Neut # (Auto) 8.7 H Lymph # (Auto) 2.7 [place] # (Auto) 0.5 Eos # (Auto) 0.2 Baso # (Auto) 0.0 Absolute Nucleated RBC 0.00 Nucleated RBC % 0.0 VBG pH 7.382 VBG pCO2 37.7 L VBG pO2 38.0 VBG HCO3 21.9 L VBG Total CO2 23.1 L VBG O2 Saturation 72.3 VBG Base Excess -2.7 L Sodium 135 Potassium 3.9 Chloride 105 Carbon Dioxide 22 Anion Gap 8.0 BUN 18 Creatinine 0.6 Estimated GFR (MDRD) 102 Glucose 413 H POC Whole Bld Glucose Estimat Average Glucose Hemoglobin A1c % Calcium 8.5 Total Bilirubin 0.9 AST 224 H ALT 111 H Alkaline Phosphatase 132 H Troponin I High Sens Total Protein 7.3 Albumin 3.2 Globulin 4.1 Albumin/Globulin Ratio 0.8 L Lipase 36 Serum Ketones NEGATIVE 08/05/22 08/05/22 08/05/22 17:56 20:35 21:03 WBC RBC Hgb Hct MCV MCH MCHC RDW Plt Count MPV Neut # (Auto) Lymph # (Auto) [place] # (Auto) Eos # (Auto) Baso # (Auto) Absolute Nucleated RBC Nucleated RBC % VBG pH VBG pCO2 VBG pO2 VBG HCO3 VBG Total CO2 VBG O2 Saturation VBG Base Excess Sodium Potassium Chloride Carbon Dioxide Anion Gap BUN Creatinine Estimated GFR (MDRD) Glucose POC Whole Bld Glucose 401 H Estimat Average Glucose 289 H Hemoglobin A1c % 11.7 H Calcium Total Bilirubin AST ALT Alkaline Phosphatase Troponin I High Sens 286.4 H* Total Protein Albumin Globulin Albumin/Globulin Ratio Lipase Serum Ketones 08/05/22 21:56 WBC RBC Hgb Hct MCV MCH MCHC RDW Plt Count MPV Neut # (Auto) Lymph # (Auto) [place] # (Auto) Eos # (Auto) Baso # (Auto) Absolute Nucleated RBC Nucleated RBC % VBG pH VBG pCO2 VBG pO2 VBG HCO3 VBG Total CO2 VBG O2 Saturation VBG Base Excess Sodium Potassium Chloride Carbon Dioxide Anion Gap BUN Creatinine Estimated GFR (MDRD) Glucose POC Whole Bld Glucose 400 H Estimat Average Glucose Hemoglobin A1c % Calcium Total Bilirubin AST ALT Alkaline Phosphatase Troponin I High Sens Total Protein Albumin Globulin Albumin/Globulin Ratio Lipase Serum Ketones - Rads (name of study) head Ct Relevant Findings:: Final report received, See rad report maxillofacial CT Relevant Findings:: Final report received, See rad report cervical spine CT Relevant Findings:: Final report received, See rad report chest wo CT Relevant Findings:: Final report received, See rad report angio chest Relevant Findings:: Final report received, See rad report Procedures - Laceration (location) chin laceration Length in cm: 3 Wound type: Linear, Into subcut fat, Clean Neurovascular status: Sensory intact, Motor intact, Vascular intact Anesthesia: Lidocaine 1% Wound preparation: Irrigated copiously NS, Wound explored, To the base Skin layer closure: Nylon, Interrupted, Size #-0 - enter number (5), Sutures - enter # (6) Other: Patient tolerated well, No complications, Neurovascular intact, Dressing applied, Tetanus UTD L upper lip Length in cm: 0.5 Wound type: Linear, Superficial, Clean Neurovascular status: Sensory intact, Motor intact, Vascular intact Anesthesia: Lidocaine 1% Wound preparation: Irrigated copiously NS, Wound explored, To the base Skin layer closure: Nylon, Size #-0 - enter number (5), Sutures - enter # (1) Other: Patient tolerated well, No complications, Neurovascular intact, Dressing applied, Tetanus UTD PD Medical Decision Making - ED course Complexity details: reviewed results, re-evaluated patient, considered differential, d/w patient, d/w cycle consultant ED course: 61-year-old female presents to the emergency department after syncopal event today. Her laceration was repaired. Tolerated well. The inner lip laceration is not able to be sewn back to the gingiva, therefore we will allow this to heal, patient will need to be on a liquid diet. She did not have any acute findings on head CT, maxillofacial CT, cervical spine CT or chest CT without contrast. Upon further history she did state that she has been having some shortness of breath over the past few months and has had a Holter monitor and echocardiogram with her supervisor phosphoric acid. Given her shortness of breath currently along with her recent knee surgery and immobilization, a CT pulmonary angiogram was performed which shows a saddle pulmonary embolus with evidence of right heart strain. Hemodynamically however she is currently stable. She is given IV fluids. She was started on heparin. Insulin was given as well for her hyperglycemia. Patient appears to medically complex with her saddle PE to stay in a critical access facility. Therefore we will try to transfer the patient. [facility] do not have any beds available. We will continue to contact surrounding facilities. PESI score class V. Discussed the case with Shiloh Pandey, Dr. Leone, Who graciously accepts in transfer. COBRA forms completed. Patient will be transferred for further care. Departure - Departure Disposition: 02 Transfer Acute Care Hosp Clinical Impression: Hypoxia Pulmonary embolism Qualifiers: Pulmonary embolism type: saddle Chronicity: acute Acute cor pulmonale presence: with acute cor pulmonale Qualified Code(s): I26.02 - Saddle embolus of pulmonary artery with acute cor pulmonale Facial laceration Qualifiers: Encounter type: initial encounter Qualified Code(s): S01.81XA - Laceration without foreign body of other part of head, initial encounter Facial contusion Qualifiers: Encounter type: initial encounter Qualified Code(s): S00.83XA - Contusion of other part of head, initial encounter Syncope Qualifiers: Syncope type: unspecified Qualified Code(s): R55 - Syncope and collapse Condition: Stable
[2022-08-05 18:01] LABS: BASOPHILS % (AUTO) 0.2 %; EOSINOPHILS # (AUTO) 0.2 10^3/uL (0.0-0.7); EOSINOPHILS % (AUTO) 1.2 %; HCT - HEMATOCRIT 41.8 % (37.0-47.0); HGB - HEMOGLOBIN 13.6 g/dL (12.0-16.0); LYMPHOCYTES # (AUTO) 2.7 10^3/uL (1.5-3.5); MEAN CORPUSCULAR HEMOGLOBIN 29.1 pg (27.0-31.0); MEAN CORPUSCULAR HGB CONC 32.5 g/dL (32.0-36.0); MEAN CORPUSCULAR VOLUME 89.3 fL (81.0-99.0); MEAN PLATELET VOLUME 9.7 fL (7.9-10.8); MONOCYTES # (AUTO) 0.5 10^3/uL (0.0-1.0); MONOCYTES % (AUTO) 4.5 %; NEUTROPHILS # (AUTO) 8.7 10^3/uL (1.5-6.6); NEUTROPHILS % (AUTO) 71.4 %; PLT - PLATELET COUNT 184 10^3/uL (130-450); RED BLOOD COUNT 4.68 10^6/uL (4.20-5.40); WHITE BLOOD COUNT 12.1 x10^3/uL (4.8-10.8)
[2022-08-05 18:05] LABS: VBG BASE EXCESS -2.7 mmol/L (-2 - +2); VBG HCO3 21.9 mmol/L (23-28); VBG PCO2 37.7 mmHg (41-51); VBG PH 7.382 (7.31-7.41); VBG TOTAL CO2 23.1 mmol/L (24-29)
[2022-08-05 18:06] LABS: VBG OXYGEN SATURATION 72.3 % (60-80)
[2022-08-05 18:13] LABS: KETONES, SERUM (ACETEST) NEGATIVE (NEGATIVE)
[2022-08-05 18:14] LABS: ALBUMIN 3.2 g/dL (3.2-5.5); ALBUMIN/GLOBULIN RATIO 0.8 (1.0-2.2); ALKALINE PHOSPHATASE 132 IU/L (42-121); ALT ALANINE AMINOTRANSFERASE 111 IU/L (10-60); AST ASPARTATE AMINOTRANSFERASE 224 IU/L (10-42); BILIRUBIN,TOTAL 0.9 mg/dL (0.2-1.0); BUN - BLOOD UREA NITROGEN 18 mg/dL (6-20); CALCIUM 8.5 mg/dL (8.5-10.3); CARBON DIOXIDE - CO2 22 mmol/L (21-32); CHLORIDE 105 mmol/L (101-111); CREATININE 0.6 mg/dL (0.4-1.0); GFR - MDRD 102 (>89); GLUCOSE 413 mg/dL (70-100); LIPASE 36 U/L (22-51); POTASSIUM 3.9 mmol/L (3.5-5.0); SODIUM 135 mmol/L (135-145); TOTAL PROTEIN 7.3 g/dL (6.7-8.2)
--- OUTSIDE RECORDS SUMMARY | 2022-08-05 18:29 | EXTERNAL MEDICAL SUMMARY RPT | Continuity of Care Document ---
Author Name Unknown Address [address] [place] [address] Phone Organization [place] Address [address] [place] [address] Phone Care Team Providers Care Shellfish Grower Name Role Phone Unavailable Unavailable Unavailable Kristi Hood Unavailable Unavailable Allergies and Intolerances date description [facility] Medications date description facility 2022-07-05 00:[address] [facility] 2022-07-05 00:00 Oxycodone-Acetaminophen [facility] 2022-07-12 00:[address] [facility] 2022-07-12 00:[address] [facility] 2022-07-12 00:[address] [facility] 2022-07-12 00:00 Albuterol Sulfate [facility] 2022-07-12 00:[address] [facility] 2022-07-12 [address] [facility] 2022-07-12 00:00 Metoprolol [address] [facility] 2022-07-12 00:00 [facility] Problems date description facility 2022-07-05 00:00 Abrasion of elbow [facility] 2022-07-05 00:00 Fracture of patella [facility] 2022-07-05 00:[address] [facility] 2022-07-12 09:40 Displaced transverse fracture of left patella, initial [facility] 2022-07-12 10:10 Displaced transverse fracture of left patella, initial [facility] 2022-07-12 14:35 Displaced transverse fracture of left patella, initial [facility] 2022-07-12 18:04 Displaced transverse fracture of left patella, initial [facility] Procedures date description facility 2022-07-05 00:00 Computed tomography of head or brain without contrast [facility] 2022-07-05 00:00 XR knee LT 3V [facility] 2022-07-05 00:00 Computed tomography of cervical spine without contrast [facility] 2022-07-12 00:00 ORIF Patella Fracture (Left) Is [facility] 2022-07-05 00:00 Unilateral x-ray of hip, two views, with x-ray of pelvis [facility] Results/Labs test date author facility value unit interpretation Result panel 1 (unknown) (no date) (unknown) [facility] (no value) (units unknown) (unknown) Result panel 2 (unknown) (no date) (unknown) [facility] (no value) (units unknown) (unknown) Result panel 3 (unknown) (no date) (unknown) [facility] (no value) (units unknown) (unknown) Result panel 4 (unknown) (no date) (unknown) (unknown) (no value) (units unknown) (unknown) (unknown) (no date) (unknown) (unknown) [id number] (units unknown) (unknown) (unknown) (no date) (unknown) (unknown) 07/05/22 (units unknown) (unknown) (unknown) (no date) (unknown) (unknown) [address] [place] [address] (un its unknown) (unknown) (unknown) (no date) (unknown) (unknown) Accession Numb er: [id number] (units unknown) (unknown) (unknown) (no date) (unknown) (unknown) Age/Sex: 61 / F Date of Service: (units unknown) (unknown) (unknown) (no date) (unknown) (unknown) [place] [address] (units unknown) (unknown) (unknown) (no date) (unknown) (unknown) Approved by: Bruna Adams M.D. on 07/05/2022 at 17:06 (units unknown) (unknown) (unknown) (no date) (unknown) (unknown) Bones: There i s a transverse, distracted fracture involving the patella. (units unknown) (unknown) (unknown) (no date) (unknown) (unknown) COMPARISON: None. (u nits unknown) (unknown) (unknown) (no date) (unknown) (unknown) : 3 Acct:[id number] (units unknown) (unknown) (unknown) (no date) (unknown) (unknown) Dictated by: Bruna Adams M.D. on 07/05/2022 at 17:04 (units unknown) (unknown) (unknown) (no date) (unknown) (unknown) FINDINGS: (units unknown) (unknown) (unknown) (no date) (unknown) (unknown) Fracture line (units unknown) (unknown) (unknown) (no date) (unknown) (unknown) IMPRESSION: Transverse mid patellar fracture with distraction of the fracture (units unknown) (unknown) (unknown) (no date) (unknown) (unknown) INDICATIONS: f all and pain (units unknown) (unknown) (unknown) (no date) (unknown) (unknown) [facility] (uni ts unknown) (unknown) (unknown) (no date) (unknown) (unknown) Loc: ED (units unknown) (unknown) (unknown) (no date) (unknown) (unknown) Ordering Provi mariely: Funmi Guerrero MD (units unknown) (unknown) (unknown) (no date) (unknown) (unknown) PROCEDURE: XR KNEE LT 3V (units unknown) (unknown) (unknown) (no date) (unknown) (unknown) Patient: Anila Sanz MR#: M (units unknown) (unknown) (unknown) (no date) (unknown) (unknown) Procedure: XR knee LT 3V (units unknown) (unknown) (unknown) (no date) (unknown) (unknown) Remainder of t he visualized osseous structures appear intact. Tricompartmental (units unknown) (unknown) (unknown) (no date) (unknown) (unknown) Signed (units unknown) (unknown) (unknown) (no date) (unknown) (unknown) Soft tissues: Small joint effusion. No suspicious soft tissue calcifications. (units unknown) (unknown) (unknown) (no date) (unknown) (unknown) TECHNIQUE: 3 v iews of the knee were acquired. (units unknown) (unknown) (unknown) (no date) (unknown) (unknown) Tricompartment al degenerative changes of the left knee. (units unknown) (unknown) (unknown) (no date) (unknown) (unknown) XRay Report (units unknown) (unknown) (unknown) (no date) (unknown) (unknown) appears to be in the midportion of the patella. Moderate overlying soft tissue (units unknown) (unknown) (unknown) (no date) (unknown) (unknown) degenerative c hanges also noted. (units unknown) (unknown) (unknown) (no date) (unknown) (unknown) edema. (units unknown) (unknown) (unknown) (no date) (unknown) (unknown) fragments. (units unknown) (unknown) Result panel 5 (unknown) (no date) (unknown) (unknown) (no value) (units unknown) (unknown) (unknown) (no date) (unknown) (unknown) [id number] (units unknown) (unknown) (unknown) (no date) (unknown) (unknown) 07/05/22 16:34 (unit s unknown) (unknown) (unknown) (no date) (unknown) (unknown) 07/05/22 (units unknown) (unknown) (unknown) (no date) (unknown) (unknown) 1 tab PO Q4HP PRNQty: 20 0RF (units unknown) (unknown) (unknown) (no date) (unknown) (unknown) 16:26 (units unknown) (unknown) (unknown) (no date) (unknown) (unknown) 650 mg PO PRN Qty: 0 (units unknown) (unknown) (unknown) (no date) (unknown) (unknown) AND ABD (units unknown) (unknown) (unknown) (no date) (unknown) (unknown) Age/Sex: 61 / F (uni ts unknown) (unknown) (unknown) (no date) (unknown) (unknown) Allergies (units unknown) (unknown) (unknown) (no date) (unknown) (unknown) Allergy/AdvRea c Type Severity Reaction Status Date / Time (units unknown) (unknown) (unknown) (no date) (unknown) (unknown) Blood Pressure 159/81 H 07/05/22 16:26 (units unknown) (unknown) (unknown) (no date) (unknown) (unknown) Blood Pressure 159/81 H (units unknown) (unknown) (unknown) (no date) (unknown) (unknown) Kristi Hood PA-C [Primary Care Provider] (units unknown) (unknown) (unknown) (no date) (unknown) (unknown) Chief Complain t: Fall (units unknown) (unknown) (unknown) (no date) (unknown) (unknown) Consult to [facility] [place] - Log [place] Stat (units unknown) (unknown) (unknown) (no date) (unknown) (unknown) Course (units unknown) (unknown) (unknown) (no date) (unknown) (unknown) : 3 Acct:[id number] (units unknown) (unknown) (unknown) (no date) (unknown) (unknown) Date of Servic e: 07/05/22 (units unknown) (unknown) (unknown) (no date) (unknown) (unknown) Departure (units unknown) (unknown) (unknown) (no date) (unknown) (unknown) Discharge Plan (unit s unknown) (unknown) (unknown) (no date) (unknown) (unknown) ED Orders (units unknown) (unknown) (unknown) (no date) (unknown) (unknown) ER Physician: Funmi Guerrero MD (units unknown) (unknown) (unknown) (no date) (unknown) (unknown) Emergency Report (un its unknown) (unknown) (unknown) (no date) (unknown) (unknown) Exam (units unknown) (unknown) (unknown) (no date) (unknown) (unknown) General (units unknown) (unknown) (unknown) (no date) (unknown) (unknown) HPI - Fall (units unknown) (unknown) (unknown) (no date) (unknown) (unknown) History of stroke (u nits unknown) (unknown) (unknown) (no date) (unknown) (unknown) Home Medications (un its unknown) (unknown) (unknown) (no date) (unknown) (unknown) Initial Vital Signs (units unknown) (unknown) (unknown) (no date) (unknown) (unknown) Initial Vital Signs: (units unknown) (unknown) (unknown) (no date) (unknown) (unknown) [address] [address] (units unknown) (unknown) (unknown) (no date) (unknown) (unknown) Medical Histor y (Updated 09/10/18 @ 00:00 by ) (units unknown) (unknown) (unknown) (no date) (unknown) (unknown) Medication Instructions Recorded Confirmed (units unknown) (unknown) (unknown) (no date) (unknown) (unknown) Medication Instructions Recorded (units unknown) (unknown) (unknown) (no date) (unknown) (unknown) Mode of arrival: EMS (units unknown) (unknown) (unknown) (no date) (unknown) (unknown) No Action (units unknown) (unknown) (unknown) (no date) (unknown) (unknown) Ordered: (units unknown) (unknown) (unknown) (no date) (unknown) (unknown) Orders (units unknown) (unknown) (unknown) (no date) (unknown) (unknown) Oxygen Deliver y Method Room Air 07/05/22 16:26 (units unknown) (unknown) (unknown) (no date) (unknown) (unknown) Oxygen Deliver y Method Room Air (units unknown) (unknown) (unknown) (no date) (unknown) (unknown) PAIN (units unknown) (unknown) (unknown) (no date) (unknown) (unknown) Patient History (uni ts unknown) (unknown) (unknown) (no date) (unknown) (unknown) Patient: Anila Sanz MR#: [id number] (units unknown) (unknown) (unknown) (no date) (unknown) (unknown) Prescriptions: (unit s unknown) (unknown) (unknown) (no date) (unknown) (unknown) Previous Rx's (units unknown) (unknown) (unknown) (no date) (unknown) (unknown) Pulse Oximetry 98 07/05/22 16:26 (units unknown) (unknown) (unknown) (no date) (unknown) (unknown) Pulse Oximetry 98 (u nits unknown) (unknown) (unknown) (no date) (unknown) (unknown) Pulse Rate 74 07/05/22 16:26 (units unknown) (unknown) (unknown) (no date) (unknown) (unknown) Pulse Rate 74 (units unknown) (unknown) (unknown) (no date) (unknown) (unknown) Referrals: (units unknown) (unknown) (unknown) (no date) (unknown) (unknown) Related Data (units unknown) (unknown) (unknown) (no date) (unknown) (unknown) Respiratory Ra te 22 07/05/22 16:26 (units unknown) (unknown) (unknown) (no date) (unknown) (unknown) Respiratory Rate 22 (units unknown) (unknown) (unknown) (no date) (unknown) (unknown) Signed By: (units unknown) (unknown) (unknown) (no date) (unknown) (unknown) Smoking Status : Former smoker (units unknown) (unknown) (unknown) (no date) (unknown) (unknown) Social History (Updated 08/26/18 @ 02:06 by Gil Hill DO) (units unknown) (unknown) (unknown) (no date) (unknown) (unknown) Source: patien t, family and EMS (units unknown) (unknown) (unknown) (no date) (unknown) (unknown) Stated Complai nt: Fall, frax patella (units unknown) (unknown) (unknown) (no date) (unknown) (unknown) Substance Use Type: does not use (units unknown) (unknown) (unknown) (no date) (unknown) (unknown) Temperature 98 .1 F 07/05/22 16:26 (units unknown) (unknown) (unknown) (no date) (unknown) (unknown) Temperature 98.1 F ( units unknown) (unknown) (unknown) (no date) (unknown) (unknown) Time Seen by Provider: 07/05/22 17:00 (units unknown) (unknown) (unknown) (no date) (unknown) (unknown) Vital Signs - 8 hr ( units unknown) (unknown) (unknown) (no date) (unknown) (unknown) Vital Signs (units unknown) (unknown) (unknown) (no date) (unknown) (unknown) Vital signs: (units unknown) (unknown) (unknown) (no date) (unknown) (unknown) XR knee LT 3V Stat ( units unknown) (unknown) (unknown) (no date) (unknown) (unknown) acetaminophen 325 MG tablet (units unknown) (unknown) (unknown) (no date) (unknown) (unknown) acetaminophen 325 mg tablet 650 mg PO PRN ##0 12/20/09 (units unknown) (unknown) (unknown) (no date) (unknown) (unknown) alcohol intake frequency: other (units unknown) (unknown) (unknown) (no date) (unknown) (unknown) codeine [CODEI NE] AdvReac Intermediate CRAMPING Verified 08/25/18 23:11 (units unknown) (unknown) (unknown) (no date) (unknown) (unknown) hydrocodone 5 mg-acetaminophen 325 1 tab PO Q4HP PRN #20 tabs 05/30/17 (units unknown) (unknown) (unknown) (no date) (unknown) (unknown) hydrocodone-ac etamin ophen [[place]] 5 MG/325 MG tablet (units unknown) (unknown) (unknown) (no date) (unknown) (unknown) lives independ ently: Yes (units unknown) (unknown) (unknown) (no date) (unknown) (unknown) marital status : (units unknown) (unknown) (unknown) (no date) (unknown) (unknown) mg tablet ([place]) (u nits unknown) (unknown) Result panel 6 (unknown) (no date) (unknown) (unknown) (no value) (units unknown) (unknown) (unknown) (no date) (unknown) (unknown) (e.g., CT, (units unknown) (unknown) (unknown) (no date) (unknown) (unknown) [id number] (units unknown) (unknown) (unknown) (no date) (unknown) (unknown) 07/05/22 (units unknown) (unknown) (unknown) (no date) (unknown) (unknown) [address] [place] [address] (un its unknown) (unknown) (unknown) (no date) (unknown) (unknown) Accession Numb er: [id number] (units unknown) (unknown) (unknown) (no date) (unknown) (unknown) Age/Sex: 61 / F Date of Service: (units unknown) (unknown) (unknown) (no date) (unknown) (unknown) [place] [address] (units unknown) (unknown) (unknown) (no date) (unknown) (unknown) Approved by: Marilia Yan M.D. on 07/05/2022 at 17:50 (units unknown) (unknown) (unknown) (no date) (unknown) (unknown) Bones: No frac tures or dislocations. Pelvic ring appears intact. No (units unknown) (unknown) (unknown) (no date) (unknown) (unknown) COMPARISON: None. (u nits unknown) (unknown) (unknown) (no date) (unknown) (unknown) : 3 Acct:[id number] (units unknown) (unknown) (unknown) (no date) (unknown) (unknown) Dictated by: Marilia Yan M.D. on 07/05/2022 at 17:50 (units unknown) (unknown) (unknown) (no date) (unknown) (unknown) FINDINGS: (units unknown) (unknown) (unknown) (no date) (unknown) (unknown) IMPRESSION: No acute fracture. No osseous lesion. If symptoms and/or clinical (units unknown) (unknown) (unknown) (no date) (unknown) (unknown) INDICATIONS: p ain, fall (units unknown) (unknown) (unknown) (no date) (unknown) (unknown) [facility] (uni ts unknown) (unknown) (unknown) (no date) (unknown) (unknown) Loc: ED (units unknown) (unknown) (unknown) (no date) (unknown) (unknown) MRI, or bone s can) may be helpful for further assessment. (units unknown) (unknown) (unknown) (no date) (unknown) (unknown) Ordering Provi mariely: Funmi Guerrero MD (units unknown) (unknown) (unknown) (no date) (unknown) (unknown) PROCEDURE: XR HIP W PEL IF DONE LT 2V (units unknown) (unknown) (unknown) (no date) (unknown) (unknown) Patient: Anila Sanz MR#: M (units unknown) (unknown) (unknown) (no date) (unknown) (unknown) Procedure: XR hip w pel if done LT 2V (units unknown) (unknown) (unknown) (no date) (unknown) (unknown) Signed (units unknown) (unknown) (unknown) (no date) (unknown) (unknown) Soft tissues: The visualized bowel gas pattern is normal. No suspicious soft (units unknown) (unknown) (unknown) (no date) (unknown) (unknown) TECHNIQUE: AP pelvis with lateral view(s) of the left hip(s). (units unknown) (unknown) (unknown) (no date) (unknown) (unknown) XRay Report (units unknown) (unknown) (unknown) (no date) (unknown) (unknown) calcifications. (uni ts unknown) (unknown) (unknown) (no date) (unknown) (unknown) for pathology persist, further assessment with repeat, or advanced imaging (units unknown) (unknown) (unknown) (no date) (unknown) (unknown) lesions. (units unknown) (unknown) (unknown) (no date) (unknown) (unknown) suspicion (units unknown) (unknown) (unknown) (no date) (unknown) (unknown) suspicious bony (uni ts unknown) (unknown) (unknown) (no date) (unknown) (unknown) tissue (units unknown) (unknown) Result panel 7 (unknown) (no date) (unknown) (unknown) (no value) (units unknown) (unknown) (unknown) (no date) (unknown) (unknown) [id number] (units unknown) (unknown) (unknown) (no date) (unknown) (unknown) 07/05/22 (units unknown) (unknown) (unknown) (no date) (unknown) (unknown) 1. No fracture. (uni ts unknown) (unknown) (unknown) (no date) (unknown) (unknown) [address] [place] [address] (un its unknown) (unknown) (unknown) (no date) (unknown) (unknown) 2. Increased r ight thyroid mass. Further assessment with nonemergent outpatient (units unknown) (unknown) (unknown) (no date) (unknown) (unknown) Accession Numb er: [id number] (units unknown) (unknown) (unknown) (no date) (unknown) (unknown) Accession Numb er: [id number] (units unknown) (unknown) (unknown) (no date) (unknown) (unknown) Age/Sex: 61 / F Date of Service: (units unknown) (unknown) (unknown) (no date) (unknown) (unknown) [place] [address] (units unknown) (unknown) (unknown) (no date) (unknown) (unknown) Approved by: Marilia Yan M.D. on 07/05/2022 at 17:35 (units unknown) (unknown) (unknown) (no date) (unknown) (unknown) Approved by: Marilia Yan M.D. on 07/05/2022 at 17:37 (units unknown) (unknown) (unknown) (no date) (unknown) (unknown) Bones: No frac tures or dislocations. Visualized superior ribs are intact. (units unknown) (unknown) (unknown) (no date) (unknown) (unknown) Brain: No intracranial bleeds or masses. There is cerebral volume loss for (units unknown) (unknown) (unknown) (no date) (unknown) (unknown) COMPARISON: [facility], CT, C-SPINE WITHOUT CONTRAST, 10/25/2012, 15:33. (units unknown) (unknown) (unknown) (no date) (unknown) (unknown) COMPARISON: [facility], CT, HEAD WITHOUT CONTRAST, 02/04/2015, 16:36. (units unknown) (unknown) (unknown) (no date) (unknown) (unknown) CSF spaces: [place] cisterns are patent. No extra-axial fluid collections. The (units unknown) (unknown) (unknown) (no date) (unknown) (unknown) CT Scan Report (unit s unknown) (unknown) (unknown) (no date) (unknown) (unknown) : 3 Acct:[id number] (units unknown) (unknown) (unknown) (no date) (unknown) (unknown) Dictated by: Marilia Yan M.D. on 07/05/2022 at 17:35 (units unknown) (unknown) (unknown) (no date) (unknown) (unknown) Dictated by: Marilia Yan M.D. on 07/05/2022 at 17:36 (units unknown) (unknown) (unknown) (no date) (unknown) (unknown) FINDINGS: (units unknown) (unknown) (unknown) (no date) (unknown) (unknown) IMPRESSION: No no acute intracranial abnormality. (units unknown) (unknown) (unknown) (no date) (unknown) (unknown) IMPRESSION: (units unknown) (unknown) (unknown) (no date) (unknown) (unknown) INDICATIONS: f all hit her knee (units unknown) (unknown) (unknown) (no date) (unknown) (unknown) INDICATIONS: trauma (units unknown) (unknown) (unknown) (no date) (unknown) (unknown) Image quality: Excellent. (units unknown) (unknown) (unknown) (no date) (unknown) (unknown) [facility] (uni ts unknown) (unknown) (unknown) (no date) (unknown) (unknown) Loc: ED (units unknown) (unknown) (unknown) (no date) (unknown) (unknown) Noncontrast 3 mm thick sections acquired from the skull base to the T4 level. (units unknown) (unknown) (unknown) (no date) (unknown) (unknown) Noncontrast 4. 5 mm thick angled axial sections acquired from the foramen magnum (units unknown) (unknown) (unknown) (no date) (unknown) (unknown) Ordering Provi mariely: Funmi Guerrero MD (units unknown) (unknown) (unknown) (no date) (unknown) (unknown) PROCEDURE: CT CERVICAL SPINE WO CON (units unknown) (unknown) (unknown) (no date) (unknown) (unknown) PROCEDURE: CT HEAD/BRAIN WO CON (units unknown) (unknown) (unknown) (no date) (unknown) (unknown) Patient: Anila Sanz MR#: M (units unknown) (unknown) (unknown) (no date) (unknown) (unknown) Procedure: CT cervical spine wo con (units unknown) (unknown) (unknown) (no date) (unknown) (unknown) Procedure: CT head/brain wo con (units unknown) (unknown) (unknown) (no date) (unknown) (unknown) Sagittal (units unknown) (unknown) (unknown) (no date) (unknown) (unknown) Signed (units unknown) (unknown) (unknown) (no date) (unknown) (unknown) Sinuses: Visua lized sinuses and mastoids are clear. (units unknown) (unknown) (unknown) (no date) (unknown) (unknown) Skull and face : Calvarium and visualized facial bones appear intact, without (units unknown) (unknown) (unknown) (no date) (unknown) (unknown) Soft tissues: Prevertebral soft tissues are normal in thickness. No (units unknown) (unknown) (unknown) (no date) (unknown) (unknown) TECHNIQUE: (units unknown) (unknown) (unknown) (no date) (unknown) (unknown) age, with (units unknown) (unknown) (unknown) (no date) (unknown) (unknown) and coronal reformats were then constructed. For radiation dose reduction, the (units unknown) (unknown) (unknown) (no date) (unknown) (unknown) artery atherosclerosis. (units unknown) (unknown) (unknown) (no date) (unknown) (unknown) carotid (units unknown) (unknown) (unknown) (no date) (unknown) (unknown) following (units unknown) (unknown) (unknown) (no date) (unknown) (unknown) hematomas. No apical pneumothoraces. Partially calcified right, increased in (units unknown) (unknown) (unknown) (no date) (unknown) (unknown) lesions. (units unknown) (unknown) (unknown) (no date) (unknown) (unknown) matter chronic small vessel ischemic changes. There is intracranial internal (units unknown) (unknown) (unknown) (no date) (unknown) (unknown) paravertebral (units unknown) (unknown) (unknown) (no date) (unknown) (unknown) patient (units unknown) (unknown) (unknown) (no date) (unknown) (unknown) resultant ventricular and sulcal prominence. There are periventricular and deep (units unknown) (unknown) (unknown) (no date) (unknown) (unknown) size. (units unknown) (unknown) (unknown) (no date) (unknown) (unknown) suspicious (units unknown) (unknown) (unknown) (no date) (unknown) (unknown) to the (units unknown) (unknown) (unknown) (no date) (unknown) (unknown) ultrasound examination is recommended (units unknown) (unknown) (unknown) (no date) (unknown) (unknown) ventricles are symmetric in size and shape. (units unknown) (unknown) (unknown) (no date) (unknown) (unknown) vertex, with c oronal and sagittal reformats. For radiation dose reduction, the (units unknown) (unknown) (unknown) (no date) (unknown) (unknown) was used: auto mated exposure control, adjustment of mA and/or kV according to (units unknown) (unknown) (unknown) (no date) (unknown) (unknown) white (units unknown) (unknown) Result panel 8 (unknown) (no date) (unknown) (unknown) (no value) (units unknown) (unknown) (unknown) (no date) (unknown) (unknown) [id number] (units unknown) (unknown) (unknown) (no date) (unknown) (unknown) 07/05/22 16:34 (unit s unknown) (unknown) (unknown) (no date) (unknown) (unknown) 07/05/22 (units unknown) (unknown) (unknown) (no date) (unknown) (unknown) 1 tab PO Q4HP PRNQty: 20 0RF (units unknown) (unknown) (unknown) (no date) (unknown) (unknown) 16:26 (units unknown) (unknown) (unknown) (no date) (unknown) (unknown) 61-year-old wo man with history of type 2 diabetes was at home and slipped on a (units unknown) (unknown) (unknown) (no date) (unknown) (unknown) 650 mg PO PRN Qty: 0 (units unknown) (unknown) (unknown) (no date) (unknown) (unknown) AND ABD (units unknown) (unknown) (unknown) (no date) (unknown) (unknown) Age/Sex: 61 / F (uni ts unknown) (unknown) (unknown) (no date) (unknown) (unknown) Allergies (units unknown) (unknown) (unknown) (no date) (unknown) (unknown) Allergy/AdvRea c Type Severity Reaction Status Date / Time (units unknown) (unknown) (unknown) (no date) (unknown) (unknown) Blood Pressure 159/81 H 07/05/22 16:26 (units unknown) (unknown) (unknown) (no date) (unknown) (unknown) Blood Pressure 159/81 H (units unknown) (unknown) (unknown) (no date) (unknown) (unknown) Kristi Hood PA-C [Primary Care Provider] (units unknown) (unknown) (unknown) (no date) (unknown) (unknown) Chief Complain t: Fall (units unknown) (unknown) (unknown) (no date) (unknown) (unknown) Consult to [facility] – [place] - Log [place] Stat (units unknown) (unknown) (unknown) (no date) (unknown) (unknown) Course (units unknown) (unknown) (unknown) (no date) (unknown) (unknown) : 3 Acct:[id number] (units unknown) (unknown) (unknown) (no date) (unknown) (unknown) Date of Servic e: 07/05/22 (units unknown) (unknown) (unknown) (no date) (unknown) (unknown) Departure (units unknown) (unknown) (unknown) (no date) (unknown) (unknown) Discharge Plan (unit s unknown) (unknown) (unknown) (no date) (unknown) (unknown) ED Orders (units unknown) (unknown) (unknown) (no date) (unknown) (unknown) ER Physician: Funmi Guerrero MD (units unknown) (unknown) (unknown) (no date) (unknown) (unknown) Emergency Report (un its unknown) (unknown) (unknown) (no date) (unknown) (unknown) Exam (units unknown) (unknown) (unknown) (no date) (unknown) (unknown) General (units unknown) (unknown) (unknown) (no date) (unknown) (unknown) HPI - Fall (units unknown) (unknown) (unknown) (no date) (unknown) (unknown) HPI Narrative: (unit s unknown) (unknown) (unknown) (no date) (unknown) (unknown) History of Pre sent Illness (units unknown) (unknown) (unknown) (no date) (unknown) (unknown) History of stroke (u nits unknown) (unknown) (unknown) (no date) (unknown) (unknown) Home Medications (un its unknown) (unknown) (unknown) (no date) (unknown) (unknown) Initial Vital Signs (units unknown) (unknown) (unknown) (no date) (unknown) (unknown) Initial Vital Signs: (units unknown) (unknown) (unknown) (no date) (unknown) (unknown) [address] [address] (units unknown) (unknown) (unknown) (no date) (unknown) (unknown) Medical Histor y (Updated 09/10/18 @ 00:00 by ) (units unknown) (unknown) (unknown) (no date) (unknown) (unknown) Medication Instructions Recorded Confirmed (units unknown) (unknown) (unknown) (no date) (unknown) (unknown) Medication Instructions Recorded (units unknown) (unknown) (unknown) (no date) (unknown) (unknown) Mode of arrival: EMS (units unknown) (unknown) (unknown) (no date) (unknown) (unknown) No Action (units unknown) (unknown) (unknown) (no date) (unknown) (unknown) Ordered: (units unknown) (unknown) (unknown) (no date) (unknown) (unknown) Orders (units unknown) (unknown) (unknown) (no date) (unknown) (unknown) Oxygen Deliver y Method Room Air 07/05/22 16:26 (units unknown) (unknown) (unknown) (no date) (unknown) (unknown) Oxygen Deliver y Method Room Air (units unknown) (unknown) (unknown) (no date) (unknown) (unknown) PAIN (units unknown) (unknown) (unknown) (no date) (unknown) (unknown) Patient History (uni ts unknown) (unknown) (unknown) (no date) (unknown) (unknown) Patient: Anila Sanz MR#: [id number] (units unknown) (unknown) (unknown) (no date) (unknown) (unknown) Prescriptions: (unit s unknown) (unknown) (unknown) (no date) (unknown) (unknown) Previous Rx's (units unknown) (unknown) (unknown) (no date) (unknown) (unknown) Pulse Oximetry 98 07/05/22 16:26 (units unknown) (unknown) (unknown) (no date) (unknown) (unknown) Pulse Oximetry 98 (u nits unknown) (unknown) (unknown) (no date) (unknown) (unknown) Pulse Rate 74 07/05/22 16:26 (units unknown) (unknown) (unknown) (no date) (unknown) (unknown) Pulse Rate 74 (units unknown) (unknown) (unknown) (no date) (unknown) (unknown) Referrals: (units unknown) (unknown) (unknown) (no date) (unknown) (unknown) Related Data (units unknown) (unknown) (unknown) (no date) (unknown) (unknown) Respiratory Ra te 22 07/05/22 16:26 (units unknown) (unknown) (unknown) (no date) (unknown) (unknown) Respiratory Rate 22 (units unknown) (unknown) (unknown) (no date) (unknown) (unknown) Signed By: (units unknown) (unknown) (unknown) (no date) (unknown) (unknown) Smoking Status : Former smoker (units unknown) (unknown) (unknown) (no date) (unknown) (unknown) Social History (Updated 08/26/18 @ 02:06 by Gil Hill DO) (units unknown) (unknown) (unknown) (no date) (unknown) (unknown) Source: patien t, family and EMS (units unknown) (unknown) (unknown) (no date) (unknown) (unknown) Stated Complai nt: Fall, frax patella (units unknown) (unknown) (unknown) (no date) (unknown) (unknown) Substance Use Type: does not use (units unknown) (unknown) (unknown) (no date) (unknown) (unknown) Temperature 98 .1 F 07/05/22 16:26 (units unknown) (unknown) (unknown) (no date) (unknown) (unknown) Temperature 98.1 F ( units unknown) (unknown) (unknown) (no date) (unknown) (unknown) Time Seen by Provider: 07/05/22 17:00 (units unknown) (unknown) (unknown) (no date) (unknown) (unknown) Vital Signs - 8 hr ( units unknown) (unknown) (unknown) (no date) (unknown) (unknown) Vital Signs (units unknown) (unknown) (unknown) (no date) (unknown) (unknown) Vital signs: (units unknown) (unknown) (unknown) (no date) (unknown) (unknown) XR knee LT 3V Stat ( units unknown) (unknown) (unknown) (no date) (unknown) (unknown) acetaminophen 325 MG tablet (units unknown) (unknown) (unknown) (no date) (unknown) (unknown) acetaminophen 325 mg tablet 650 mg PO PRN ##0 12/20/09 (units unknown) (unknown) (unknown) (no date) (unknown) (unknown) alcohol intake frequency: other (units unknown) (unknown) (unknown) (no date) (unknown) (unknown) chronic pain , opioid or alcohol use disorder. (units unknown) (unknown) (unknown) (no date) (unknown) (unknown) codeine [CODEI NE] AdvReac Intermediate CRAMPING Verified 08/25/18 23:11 (units unknown) (unknown) (unknown) (no date) (unknown) (unknown) hydrocodone 5 mg-acetaminophen 325 1 tab PO Q4HP PRN #20 tabs 05/30/17 (units unknown) (unknown) (unknown) (no date) (unknown) (unknown) hydrocodone-ac etamin ophen [[place]] 5 MG/325 MG tablet (units unknown) (unknown) (unknown) (no date) (unknown) (unknown) lives independ ently: Yes (units unknown) (unknown) (unknown) (no date) (unknown) (unknown) loss of consciousness) minor contusion to the right elbow and somehow ended up (units unknown) (unknown) (unknown) (no date) (unknown) (unknown) marital status : (units unknown) (unknown) (unknown) (no date) (unknown) (unknown) mg tablet ([place]) (u nits unknown) (unknown) (unknown) (no date) (unknown) (unknown) of fentanyl an d is still having fairly significant pain. She has no history of (units unknown) (unknown) (unknown) (no date) (unknown) (unknown) the patella un able to move and significant pain. 911 was called and she was (units unknown) (unknown) (unknown) (no date) (unknown) (unknown) the right side of her head she is (she is not on blood thinners, there was no (units unknown) (unknown) (unknown) (no date) (unknown) (unknown) transported to the emergency department. She received 5 mg of Versed and 100 mg (units unknown) (unknown) (unknown) (no date) (unknown) (unknown) wet floor. She remembers landing mostly on her right side, small contusion to (units unknown) (unknown) (unknown) (no date) (unknown) (unknown) with a signifi cant contusion to the left knee. Large amount of swelling over (units unknown) (unknown) Result panel 9 (unknown) (no date) (unknown) (unknown) (no value) (units unknown) (unknown) (unknown) (no date) (unknown) (unknown) [id number] (units unknown) (unknown) (unknown) (no date) (unknown) (unknown) 07/05/22 16:34 (unit s unknown) (unknown) (unknown) (no date) (unknown) (unknown) 07/05/22 (units unknown) (unknown) (unknown) (no date) (unknown) (unknown) 1 tab PO Q4HP PRNQty: 20 0RF (units unknown) (unknown) (unknown) (no date) (unknown) (unknown) 16:26 (units unknown) (unknown) (unknown) (no date) (unknown) (unknown) 61-year-old wo man with history of type 2 diabetes was at home and slipped on a (units unknown) (unknown) (unknown) (no date) (unknown) (unknown) 650 mg PO PRN Qty: 0 (units unknown) (unknown) (unknown) (no date) (unknown) (unknown) AND ABD (units unknown) (unknown) (unknown) (no date) (unknown) (unknown) Abdomen: Soft, nontender, good bowel tones, no flank pain, no tenderness to (units unknown) (unknown) (unknown) (no date) (unknown) (unknown) Age/Sex: 61 / F (uni ts unknown) (unknown) (unknown) (no date) (unknown) (unknown) Allergies (units unknown) (unknown) (unknown) (no date) (unknown) (unknown) Allergy/AdvRea c Type Severity Reaction Status Date / Time (units unknown) (unknown) (unknown) (no date) (unknown) (unknown) Blood Pressure 159/81 H 07/05/22 16:26 (units unknown) (unknown) (unknown) (no date) (unknown) (unknown) Blood Pressure 159/81 H (units unknown) (unknown) (unknown) (no date) (unknown) (unknown) Kristi Hood PA-C [Primary Care Provider] (units unknown) (unknown) (unknown) (no date) (unknown) (unknown) CC: Modified t rauma with complaints of severe left knee pain (units unknown) (unknown) (unknown) (no date) (unknown) (unknown) Cardiac: Regul ar rate and rhythm no murmurs no bruits (units unknown) (unknown) (unknown) (no date) (unknown) (unknown) Chest: No tend erness to clavicles ribcage thoracic spine (units unknown) (unknown) (unknown) (no date) (unknown) (unknown) Chief Complain t: Fall (units unknown) (unknown) (unknown) (no date) (unknown) (unknown) Complicating co-morbidities: Type 2 diabetes, prior stroke (units unknown) (unknown) (unknown) (no date) (unknown) (unknown) Consult to [facility] – [place] - [place] Stat (units unknown) (unknown) (unknown) (no date) (unknown) (unknown) Consultations: (unit s unknown) (unknown) (unknown) (no date) (unknown) (unknown) Course (units unknown) (unknown) (unknown) (no date) (unknown) (unknown) : 3 Acct:[id number] (units unknown) (unknown) (unknown) (no date) (unknown) (unknown) Data collected from: patient, significant other (units unknown) (unknown) (unknown) (no date) (unknown) (unknown) Date of Servic e: 07/05/22 (units unknown) (unknown) (unknown) (no date) (unknown) (unknown) Departure (units unknown) (unknown) (unknown) (no date) (unknown) (unknown) Differential considered: Obvious knee injury, concern for head, cervical spine (units unknown) (unknown) (unknown) (no date) (unknown) (unknown) Discharge Plan (unit s unknown) (unknown) (unknown) (no date) (unknown) (unknown) Discussion: (units unknown) (unknown) (unknown) (no date) (unknown) (unknown) ED Orders (units unknown) (unknown) (unknown) (no date) (unknown) (unknown) ER Physician: Funmi Guerrero MD (units unknown) (unknown) (unknown) (no date) (unknown) (unknown) Emergency Report (un its unknown) (unknown) (unknown) (no date) (unknown) (unknown) Exam documente d above, pertinent findings include: (units unknown) (unknown) (unknown) (no date) (unknown) (unknown) Exam (units unknown) (unknown) (unknown) (no date) (unknown) (unknown) Extremities: Significant pain and swelling left knee, unable to straighten leg. (units unknown) (unknown) (unknown) (no date) (unknown) (unknown) Full and symme trical air movement (units unknown) (unknown) (unknown) (no date) (unknown) (unknown) General (units unknown) (unknown) (unknown) (no date) (unknown) (unknown) General: In ob vious pain secondary to knee injury but able to participate with (units unknown) (unknown) (unknown) (no date) (unknown) (unknown) HEENT: Moist m ucous membranes, normal sclera with reactive pupils, no obvious (units unknown) (unknown) (unknown) (no date) (unknown) (unknown) HPI - Fall (units unknown) (unknown) (unknown) (no date) (unknown) (unknown) HPI Narrative: (unit s unknown) (unknown) (unknown) (no date) (unknown) (unknown) History of Pre sent Illness (units unknown) (unknown) (unknown) (no date) (unknown) (unknown) History of stroke (u nits unknown) (unknown) (unknown) (no date) (unknown) (unknown) Home Medications (un its unknown) (unknown) (unknown) (no date) (unknown) (unknown) Imaging studie s independently reviewed: (units unknown) (unknown) (unknown) (no date) (unknown) (unknown) Independently reviewed EKG as above (units unknown) (unknown) (unknown) (no date) (unknown) (unknown) Initial Vital Signs (units unknown) (unknown) (unknown) (no date) (unknown) (unknown) Initial Vital Signs: (units unknown) (unknown) (unknown) (no date) (unknown) (unknown) [place] [address] (units unknown) (unknown) (unknown) (no date) (unknown) (unknown) Lab Test resul ts independently reviewed as above. Pertinent findings: (units unknown) (unknown) (unknown) (no date) (unknown) (unknown) MDM - Fall (units unknown) (unknown) (unknown) (no date) (unknown) (unknown) MDM Narrative (units unknown) (unknown) (unknown) (no date) (unknown) (unknown) Medical Histor y (Updated 07/05/22 @ 17:10 by Funmi Guerrero MD) (units unknown) (unknown) (unknown) (no date) (unknown) (unknown) Medical decisi on making narrative: (units unknown) (unknown) (unknown) (no date) (unknown) (unknown) Medication Instructions Recorded Confirmed (units unknown) (unknown) (unknown) (no date) (unknown) (unknown) Medication Instructions Recorded (units unknown) (unknown) (unknown) (no date) (unknown) (unknown) Mode of arrival: EMS (units unknown) (unknown) (unknown) (no date) (unknown) (unknown) Narrative: (units unknown) (unknown) (unknown) (no date) (unknown) (unknown) Neck: No signi ficant midline tenderness mild bilateral trapezius muscle (units unknown) (unknown) (unknown) (no date) (unknown) (unknown) Neurologic: Gr ossly neurologically intact with no obvious asymmetries or (units unknown) (unknown) (unknown) (no date) (unknown) (unknown) No Action (units unknown) (unknown) (unknown) (no date) (unknown) (unknown) No ankle or fo ot abnormalities. Question of hip pain. Upper extremities are (units unknown) (unknown) (unknown) (no date) (unknown) (unknown) Ordered: (units unknown) (unknown) (unknown) (no date) (unknown) (unknown) Orders (units unknown) (unknown) (unknown) (no date) (unknown) (unknown) Oxygen Deliver y Method Room Air 07/05/22 16:26 (units unknown) (unknown) (unknown) (no date) (unknown) (unknown) Oxygen Deliver y Method Room Air (units unknown) (unknown) (unknown) (no date) (unknown) (unknown) PAIN (units unknown) (unknown) (unknown) (no date) (unknown) (unknown) Patient History (uni ts unknown) (unknown) (unknown) (no date) (unknown) (unknown) Patient: Anila Sanz MR#: [id number] (units unknown) (unknown) (unknown) (no date) (unknown) (unknown) Pelvis: Minor tenderness with compression on the anterior iliac crests more on (units unknown) (unknown) (unknown) (no date) (unknown) (unknown) Prescriptions: (unit s unknown) (unknown) (unknown) (no date) (unknown) (unknown) Previous Rx's (units unknown) (unknown) (unknown) (no date) (unknown) (unknown) Psych: Cooper[place] t[place], appropriate insight and affect (units unknown) (unknown) (unknown) (no date) (unknown) (unknown) Pulse Oximetry 98 07/05/22 16:26 (units unknown) (unknown) (unknown) (no date) (unknown) (unknown) Pulse Oximetry 98 (u nits unknown) (unknown) (unknown) (no date) (unknown) (unknown) Pulse Rate 74 07/05/22 16:26 (units unknown) (unknown) (unknown) (no date) (unknown) (unknown) Pulse Rate 74 (units unknown) (unknown) (unknown) (no date) (unknown) (unknown) Re-evaluations: (uni ts unknown) (unknown) (unknown) (no date) (unknown) (unknown) Referrals: (units unknown) (unknown) (unknown) (no date) (unknown) (unknown) Related Data (units unknown) (unknown) (unknown) (no date) (unknown) (unknown) Remainder of complete review of systems is otherwise unremarkable except for (units unknown) (unknown) (unknown) (no date) (unknown) (unknown) Respiratory Ra te 22 07/05/22 16:26 (units unknown) (unknown) (unknown) (no date) (unknown) (unknown) Respiratory Rate 22 (units unknown) (unknown) (unknown) (no date) (unknown) (unknown) Respiratory: L ungs are clear to auscultation, no wheezing no rales no rhonchi. (units unknown) (unknown) (unknown) (no date) (unknown) (unknown) Review of Systems (u nits unknown) (unknown) (unknown) (no date) (unknown) (unknown) Severe left kn ee pain unable to straighten swelling over the patella, injury so (units unknown) (unknown) (unknown) (no date) (unknown) (unknown) Signed By: (units unknown) (unknown) (unknown) (no date) (unknown) (unknown) Skin: Warm and dry, minor abrasion to the right elbow (units unknown) (unknown) (unknown) (no date) (unknown) (unknown) Smoking Status : Former smoker (units unknown) (unknown) (unknown) (no date) (unknown) (unknown) Social History (units unknown) (unknown) (unknown) (no date) (unknown) (unknown) Source: patien t, family and EMS (units unknown) (unknown) (unknown) (no date) (unknown) (unknown) Stated Complai nt: Fall, frax patella (units unknown) (unknown) (unknown) (no date) (unknown) (unknown) Substance Use Type: does not use (units unknown) (unknown) (unknown) (no date) (unknown) (unknown) Temperature 98 .1 F 07/05/22 16:26 (units unknown) (unknown) (unknown) (no date) (unknown) (unknown) Temperature 98.1 F ( units unknown) (unknown) (unknown) (no date) (unknown) (unknown) Time Seen by Provider: 07/05/22 17:00 (units unknown) (unknown) (unknown) (no date) (unknown) (unknown) Treatments: (units unknown) (unknown) (unknown) (no date) (unknown) (unknown) Type 2 diabete s mellitus (units unknown) (unknown) (unknown) (no date) (unknown) (unknown) Vital Signs - 8 hr ( units unknown) (unknown) (unknown) (no date) (unknown) (unknown) Vital Signs (units unknown) (unknown) (unknown) (no date) (unknown) (unknown) Vital signs: (units unknown) (unknown) (unknown) (no date) (unknown) (unknown) X-ray of the k nee shows Transverse mid patellar fracture with distraction of the (units unknown) (unknown) (unknown) (no date) (unknown) (unknown) XR knee LT 3V Stat ( units unknown) (unknown) (unknown) (no date) (unknown) (unknown) abnormalities (units unknown) (unknown) (unknown) (no date) (unknown) (unknown) acetaminophen 325 MG tablet (units unknown) (unknown) (unknown) (no date) (unknown) (unknown) acetaminophen 325 mg tablet 650 mg PO PRN ##0 12/20/09 (units unknown) (unknown) (unknown) (no date) (unknown) (unknown) alcohol intake frequency: other (units unknown) (unknown) (unknown) (no date) (unknown) (unknown) chronic pain , opioid or alcohol use disorder. (units unknown) (unknown) (unknown) (no date) (unknown) (unknown) codeine [CODEI NE] AdvReac Intermediate CRAMPING Verified 08/25/18 23:11 (units unknown) (unknown) (unknown) (no date) (unknown) (unknown) distracting remainder of exam is difficult to fully assess in terms of (units unknown) (unknown) (unknown) (no date) (unknown) (unknown) exam, cooperative (u nits unknown) (unknown) (unknown) (no date) (unknown) (unknown) fracture fragments.Tricompart mental degenerative changes of the left knee. (units unknown) (unknown) (unknown) (no date) (unknown) (unknown) hydrocodone 5 mg-acetaminophen 325 1 tab PO Q4HP PRN #20 tabs 05/30/17 (units unknown) (unknown) (unknown) (no date) (unknown) (unknown) hydrocodone-ac etamin ophen [[place]] 5 MG/325 MG tablet (units unknown) (unknown) (unknown) (no date) (unknown) (unknown) knee pain. Rig ht side is unremarkable (units unknown) (unknown) (unknown) (no date) (unknown) (unknown) lives independ ently: Yes (units unknown) (unknown) (unknown) (no date) (unknown) (unknown) loss of consciousness) minor contusion to the right elbow and somehow ended up (units unknown) (unknown) (unknown) (no date) (unknown) (unknown) lumbar spine (units unknown) (unknown) (unknown) (no date) (unknown) (unknown) marital status : (units unknown) (unknown) (unknown) (no date) (unknown) (unknown) medicated prio r to exam (units unknown) (unknown) (unknown) (no date) (unknown) (unknown) mg tablet ([place]) (u nits unknown) (unknown) (unknown) (no date) (unknown) (unknown) of fentanyl an d is still having fairly significant pain. She has no history of (units unknown) (unknown) (unknown) (no date) (unknown) (unknown) tenderness to her head and no clinical skull fracture (units unknown) (unknown) (unknown) (no date) (unknown) (unknown) tenderness, sh e has significant distracting injuries and has been significantly (units unknown) (unknown) (unknown) (no date) (unknown) (unknown) that included in the HPI. (units unknown) (unknown) (unknown) (no date) (unknown) (unknown) the fall (units unknown) (unknown) (unknown) (no date) (unknown) (unknown) the left. Conc robyn for left hip tenderness unable to mobilize hip due to severe (units unknown) (unknown) (unknown) (no date) (unknown) (unknown) the patella un able to move and significant pain. 911 was called and she was (units unknown) (unknown) (unknown) (no date) (unknown) (unknown) the right side of her head she is (she is not on blood thinners, there was no (units unknown) (unknown) (unknown) (no date) (unknown) (unknown) transported to the emergency department. She received 5 mg of Versed and 100 mg (units unknown) (unknown) (unknown) (no date) (unknown) (unknown) trauma, pelvic trauma no evidence of acute stroke or alternate explanation for (units unknown) (unknown) (unknown) (no date) (unknown) (unknown) trauma/injury (units unknown) (unknown) (unknown) (no date) (unknown) (unknown) unremarkable w ith full non painful range of motion at the shoulders elbows and (units unknown) (unknown) (unknown) (no date) (unknown) (unknown) wet floor. She remembers landing mostly on her right side, small contusion to (units unknown) (unknown) (unknown) (no date) (unknown) (unknown) with a signifi cant contusion to the left knee. Large amount of swelling over (units unknown) (unknown) (unknown) (no date) (unknown) (unknown) wrists bilaterally ( units unknown) (unknown) Result panel 10 (unknown) (no date) (unknown) (unknown) Negative (units unknown) (unknown) (unknown) (no date) (unknown) (unknown) Negative (units unknown) (unknown) Result panel 11 (unknown) (no date) (unknown) (unknown) (no value) (units unknown) (unknown) (unknown) (no date) (unknown) (unknown) [id number] (units unknown) (unknown) (unknown) (no date) (unknown) (unknown) 07/05/22 16:34 (unit s unknown) (unknown) (unknown) (no date) (unknown) (unknown) 07/05/22 17:06 (unit s unknown) (unknown) (unknown) (no date) (unknown) (unknown) 07/05/22 17:09 (unit s unknown) (unknown) (unknown) (no date) (unknown) (unknown) 07/05/22 17:50 (unit s unknown) (unknown) (unknown) (no date) (unknown) (unknown) 07/05/22 (units unknown) (unknown) (unknown) (no date) (unknown) (unknown) 1 tab PO Q4HP PRNQty: 20 0RF (units unknown) (unknown) (unknown) (no date) (unknown) (unknown) 16:23 07/05/22 (unit s unknown) (unknown) (unknown) (no date) (unknown) (unknown) 16:24 07/05/22 (unit s unknown) (unknown) (unknown) (no date) (unknown) (unknown) 16:24 (units unknown) (unknown) (unknown) (no date) (unknown) (unknown) 16:26 07/05/22 (unit s unknown) (unknown) (unknown) (no date) (unknown) (unknown) 16:30 07/05/22 (unit s unknown) (unknown) (unknown) (no date) (unknown) (unknown) 16:30 (units unknown) (unknown) (unknown) (no date) (unknown) (unknown) 17:00 07/05/22 (unit s unknown) (unknown) (unknown) (no date) (unknown) (unknown) 17:36 (units unknown) (unknown) (unknown) (no date) (unknown) (unknown) 17:37 07/05/22 (unit s unknown) (unknown) (unknown) (no date) (unknown) (unknown) 17:37 (units unknown) (unknown) (unknown) (no date) (unknown) (unknown) 61-year-old wo man with history of type 2 diabetes was at home and slipped on a (units unknown) (unknown) (unknown) (no date) (unknown) (unknown) 650 mg PO PRN Qty: 0 (units unknown) (unknown) (unknown) (no date) (unknown) (unknown) AND ABD (units unknown) (unknown) (unknown) (no date) (unknown) (unknown) Abdomen: Soft, nontender, good bowel tones, no flank pain, no tenderness to (units unknown) (unknown) (unknown) (no date) (unknown) (unknown) Age/Sex: 61 / F (uni ts unknown) (unknown) (unknown) (no date) (unknown) (unknown) Allergies (units unknown) (unknown) (unknown) (no date) (unknown) (unknown) Allergy/AdvRea c Type Severity Reaction Status Date / Time (units unknown) (unknown) (unknown) (no date) (unknown) (unknown) Blood Pressure 132/75 (units unknown) (unknown) (unknown) (no date) (unknown) (unknown) Blood Pressure 153/78 H (units unknown) (unknown) (unknown) (no date) (unknown) (unknown) Blood Pressure 159/81 H 159/81 H (units unknown) (unknown) (unknown) (no date) (unknown) (unknown) Blood Pressure 168/85 H (units unknown) (unknown) (unknown) (no date) (unknown) (unknown) Kristi Hood PA-C [Primary Care Provider] (units unknown) (unknown) (unknown) (no date) (unknown) (unknown) CC: Modified t rauma with complaints of severe left knee pain (units unknown) (unknown) (unknown) (no date) (unknown) (unknown) COVID19 -Nasal RAPID Stat (units unknown) (unknown) (unknown) (no date) (unknown) (unknown) CT cervical sp ine wo con Stat (units unknown) (unknown) (unknown) (no date) (unknown) (unknown) CT head/brain wo con Stat (units unknown) (unknown) (unknown) (no date) (unknown) (unknown) Cardiac: Regul ar rate and rhythm no murmurs no bruits (units unknown) (unknown) (unknown) (no date) (unknown) (unknown) Chest: No tend erness to clavicles ribcage thoracic spine (units unknown) (unknown) (unknown) (no date) (unknown) (unknown) Chief Complain t: Fall (units unknown) (unknown) (unknown) (no date) (unknown) (unknown) Complicating co-morbidities: Type 2 diabetes, prior stroke (units unknown) (unknown) (unknown) (no date) (unknown) (unknown) Consult to [facility] – [place] - [place] Stat (units unknown) (unknown) (unknown) (no date) (unknown) (unknown) Consultations: Dr. Calvillo, 6:00 p.m.. Recommendation is knee immobilizer and if (units unknown) (unknown) (unknown) (no date) (unknown) (unknown) Course (units unknown) (unknown) (unknown) (no date) (unknown) (unknown) : 3 Acct:[id number] (units unknown) (unknown) (unknown) (no date) (unknown) (unknown) Data collected from: patient, significant other (units unknown) (unknown) (unknown) (no date) (unknown) (unknown) Date of Servic e: 07/05/22 (units unknown) (unknown) (unknown) (no date) (unknown) (unknown) Departure (units unknown) (unknown) (unknown) (no date) (unknown) (unknown) Differential considered: Obvious knee injury, concern for head, cervical spine (units unknown) (unknown) (unknown) (no date) (unknown) (unknown) Discharge Plan (unit s unknown) (unknown) (unknown) (no date) (unknown) (unknown) Discussion: (units unknown) (unknown) (unknown) (no date) (unknown) (unknown) Documented By: SB (u nits unknown) (unknown) (unknown) (no date) (unknown) (unknown) ED Orders (units unknown) (unknown) (unknown) (no date) (unknown) (unknown) ER Physician: Funmi Guerrero MD (units unknown) (unknown) (unknown) (no date) (unknown) (unknown) Emergency Report (un its unknown) (unknown) (unknown) (no date) (unknown) (unknown) Exam documente d above, pertinent findings include: (units unknown) (unknown) (unknown) (no date) (unknown) (unknown) Exam (units unknown) (unknown) (unknown) (no date) (unknown) (unknown) Extremities: Significant pain and swelling left knee, unable to straighten leg. (units unknown) (unknown) (unknown) (no date) (unknown) (unknown) Full and symme trical air movement (units unknown) (unknown) (unknown) (no date) (unknown) (unknown) General (units unknown) (unknown) (unknown) (no date) (unknown) (unknown) General: In ob vious pain secondary to knee injury but able to participate with (units unknown) (unknown) (unknown) (no date) (unknown) (unknown) HEENT: Moist m ucous membranes, normal sclera with reactive pupils, no obvious (units unknown) (unknown) (unknown) (no date) (unknown) (unknown) HPI - Fall (units unknown) (unknown) (unknown) (no date) (unknown) (unknown) HPI Narrative: (unit s unknown) (unknown) (unknown) (no date) (unknown) (unknown) History of Pre sent Illness (units unknown) (unknown) (unknown) (no date) (unknown) (unknown) History of stroke (u nits unknown) (unknown) (unknown) (no date) (unknown) (unknown) Home Medications (un its unknown) (unknown) (unknown) (no date) (unknown) (unknown) Hydromorphone HCl (Hydromorphone 0.5 Mg Inj) 0.5 mg IV Q15MIN PRN (units unknown) (unknown) (unknown) (no date) (unknown) (unknown) Imaging studie s independently reviewed: (units unknown) (unknown) (unknown) (no date) (unknown) (unknown) Independently reviewed EKG as above (units unknown) (unknown) (unknown) (no date) (unknown) (unknown) Initial Vital Signs (units unknown) (unknown) (unknown) (no date) (unknown) (unknown) Initial Vital Signs: (units unknown) (unknown) (unknown) (no date) (unknown) (unknown) [address] [address] (units unknown) (unknown) (unknown) (no date) (unknown) (unknown) Lab Test resul ts independently reviewed as above. Pertinent findings: (units unknown) (unknown) (unknown) (no date) (unknown) (unknown) Last Admin: 17:12 Dose: 0.5 mg (units unknown) (unknown) (unknown) (no date) (unknown) (unknown) MDM - Fall (units unknown) (unknown) (unknown) (no date) (unknown) (unknown) MDM Narrative (units unknown) (unknown) (unknown) (no date) (unknown) (unknown) Medical Histor y (Updated 07/05/22 @ 17:10 by Funmi Guerrero MD) (units unknown) (unknown) (unknown) (no date) (unknown) (unknown) Medical decisi on making narrative: (units unknown) (unknown) (unknown) (no date) (unknown) (unknown) Medication Instructions Recorded Confirmed (units unknown) (unknown) (unknown) (no date) (unknown) (unknown) Medication Instructions Recorded (units unknown) (unknown) (unknown) (no date) (unknown) (unknown) Mode of arrival: EMS (units unknown) (unknown) (unknown) (no date) (unknown) (unknown) Narrative: (units unknown) (unknown) (unknown) (no date) (unknown) (unknown) Neck: No signi ficant midline tenderness mild bilateral trapezius muscle (units unknown) (unknown) (unknown) (no date) (unknown) (unknown) Neurologic: Gr ossly neurologically intact with no obvious asymmetries or (units unknown) (unknown) (unknown) (no date) (unknown) (unknown) No Action (units unknown) (unknown) (unknown) (no date) (unknown) (unknown) No ankle or fo ot abnormalities. Question of hip pain. Upper extremities are (units unknown) (unknown) (unknown) (no date) (unknown) (unknown) Ordered: (units unknown) (unknown) (unknown) (no date) (unknown) (unknown) Orders (units unknown) (unknown) (unknown) (no date) (unknown) (unknown) Oxygen Deliver y Method Room Air (units unknown) (unknown) (unknown) (no date) (unknown) (unknown) Oxygen Deliver y Method (units unknown) (unknown) (unknown) (no date) (unknown) (unknown) PAIN (units unknown) (unknown) (unknown) (no date) (unknown) (unknown) PRN Reason: Pain, (u nits unknown) (unknown) (unknown) (no date) (unknown) (unknown) Patient History (uni ts unknown) (unknown) (unknown) (no date) (unknown) (unknown) Patient: Anila Sanz MR#: [id number] (units unknown) (unknown) (unknown) (no date) (unknown) (unknown) Pelvis: Minor tenderness with compression on the anterior iliac crests more on (units unknown) (unknown) (unknown) (no date) (unknown) (unknown) Prescriptions: (unit s unknown) (unknown) (unknown) (no date) (unknown) (unknown) Previous Rx's (units unknown) (unknown) (unknown) (no date) (unknown) (unknown) Psych: Cooper[place] t[place], appropriate insight and affect (units unknown) (unknown) (unknown) (no date) (unknown) (unknown) Pulse Oximetry 97 07/05/22 16:23 (units unknown) (unknown) (unknown) (no date) (unknown) (unknown) Pulse Oximetry 97 99 (units unknown) (unknown) (unknown) (no date) (unknown) (unknown) Pulse Oximetry 98 97 (units unknown) (unknown) (unknown) (no date) (unknown) (unknown) Pulse Oximetry 99 (u nits unknown) (unknown) (unknown) (no date) (unknown) (unknown) Pulse Rate 70 07/05/22 16:23 (units unknown) (unknown) (unknown) (no date) (unknown) (unknown) Pulse Rate 71 (units unknown) (unknown) (unknown) (no date) (unknown) (unknown) Pulse Rate 73 72 (un its unknown) (unknown) (unknown) (no date) (unknown) (unknown) Pulse Rate 74 70 (un its unknown) (unknown) (unknown) (no date) (unknown) (unknown) Pulse Rate 74 72 (un its unknown) (unknown) (unknown) (no date) (unknown) (unknown) Re-evaluations: (uni ts unknown) (unknown) (unknown) (no date) (unknown) (unknown) Referrals: (units unknown) (unknown) (unknown) (no date) (unknown) (unknown) Related Data (units unknown) (unknown) (unknown) (no date) (unknown) (unknown) Remainder of complete review of systems is otherwise unremarkable except for (units unknown) (unknown) (unknown) (no date) (unknown) (unknown) Respiratory Rate 22 (units unknown) (unknown) (unknown) (no date) (unknown) (unknown) Respiratory Rate (un its unknown) (unknown) (unknown) (no date) (unknown) (unknown) Respiratory: L ungs are clear to auscultation, no wheezing no rales no rhonchi. (units unknown) (unknown) (unknown) (no date) (unknown) (unknown) Review of Systems (u nits unknown) (unknown) (unknown) (no date) (unknown) (unknown) Severe left kn ee pain unable to straighten swelling over the patella, injury so (units unknown) (unknown) (unknown) (no date) (unknown) (unknown) Signed By: (units unknown) (unknown) (unknown) (no date) (unknown) (unknown) Skin: Warm and dry, minor abrasion to the right elbow (units unknown) (unknown) (unknown) (no date) (unknown) (unknown) Smoking Status : Former smoker (units unknown) (unknown) (unknown) (no date) (unknown) (unknown) Social History (units unknown) (unknown) (unknown) (no date) (unknown) (unknown) Source: patien t, family and EMS (units unknown) (unknown) (unknown) (no date) (unknown) (unknown) Stated Complai nt: Fall, frax patella (units unknown) (unknown) (unknown) (no date) (unknown) (unknown) Substance Use Type: does not use (units unknown) (unknown) (unknown) (no date) (unknown) (unknown) Temperature 98.1 F ( units unknown) (unknown) (unknown) (no date) (unknown) (unknown) Temperature (units unknown) (unknown) (unknown) (no date) (unknown) (unknown) Time Seen by Provider: 07/05/22 17:00 (units unknown) (unknown) (unknown) (no date) (unknown) (unknown) Treatments: (units unknown) (unknown) (unknown) (no date) (unknown) (unknown) Type 2 diabete s mellitus (units unknown) (unknown) (unknown) (no date) (unknown) (unknown) Vital Signs - 8 hr ( units unknown) (unknown) (unknown) (no date) (unknown) (unknown) Vital Signs (units unknown) (unknown) (unknown) (no date) (unknown) (unknown) Vital signs: (units unknown) (unknown) (unknown) (no date) (unknown) (unknown) X-ray of the k nee shows Transverse mid patellar fracture with distraction of the (units unknown) (unknown) (unknown) (no date) (unknown) (unknown) XR hip w pel i f done LT 2V Stat (units unknown) (unknown) (unknown) (no date) (unknown) (unknown) XR knee LT 3V Stat ( units unknown) (unknown) (unknown) (no date) (unknown) (unknown) abnormalities (units unknown) (unknown) (unknown) (no date) (unknown) (unknown) acetaminophen 325 MG tablet (units unknown) (unknown) (unknown) (no date) (unknown) (unknown) acetaminophen 325 mg tablet 650 mg PO PRN ##0 12/20/09 (units unknown) (unknown) (unknown) (no date) (unknown) (unknown) alcohol intake frequency: other (units unknown) (unknown) (unknown) (no date) (unknown) (unknown) chronic pain , opioid or alcohol use disorder. (units unknown) (unknown) (unknown) (no date) (unknown) (unknown) codeine [CODEI NE] AdvReac Intermediate CRAMPING Verified 08/25/18 23:11 (units unknown) (unknown) (unknown) (no date) (unknown) (unknown) distracting remainder of exam is difficult to fully assess in terms of (units unknown) (unknown) (unknown) (no date) (unknown) (unknown) exam, cooperative (u nits unknown) (unknown) (unknown) (no date) (unknown) (unknown) fracture fragments.Tricompart mental degenerative changes of the left knee. (units unknown) (unknown) (unknown) (no date) (unknown) (unknown) hydrocodone 5 mg-acetaminophen 325 1 tab PO Q4HP PRN #20 tabs 05/30/17 (units unknown) (unknown) (unknown) (no date) (unknown) (unknown) hydrocodone-ac etamin ophen [[place]] 5 MG/325 MG tablet (units unknown) (unknown) (unknown) (no date) (unknown) (unknown) knee pain. Rig ht side is unremarkable (units unknown) (unknown) (unknown) (no date) (unknown) (unknown) lives independ ently: Yes (units unknown) (unknown) (unknown) (no date) (unknown) (unknown) loss of consciousness) minor contusion to the right elbow and somehow ended up (units unknown) (unknown) (unknown) (no date) (unknown) (unknown) lumbar spine (units unknown) (unknown) (unknown) (no date) (unknown) (unknown) marital status : (units unknown) (unknown) (unknown) (no date) (unknown) (unknown) medicated prio r to exam (units unknown) (unknown) (unknown) (no date) (unknown) (unknown) mg tablet ([place]) (u nits unknown) (unknown) (unknown) (no date) (unknown) (unknown) need walker or crutches appropriate pain control and follow-up in clinic to call (units unknown) (unknown) (unknown) (no date) (unknown) (unknown) of fentanyl an d is still having fairly significant pain. She has no history of (units unknown) (unknown) (unknown) (no date) (unknown) (unknown) on Friday. Kristian l likely need operative intervention and this will not be (units unknown) (unknown) (unknown) (no date) (unknown) (unknown) she is unable to straighten her knee a posterior splint for comfort. She will (units unknown) (unknown) (unknown) (no date) (unknown) (unknown) tenderness to her head and no clinical skull fracture (units unknown) (unknown) (unknown) (no date) (unknown) (unknown) tenderness, sh e has significant distracting injuries and has been significantly (units unknown) (unknown) (unknown) (no date) (unknown) (unknown) that included in the HPI. (units unknown) (unknown) (unknown) (no date) (unknown) (unknown) the fall (units unknown) (unknown) (unknown) (no date) (unknown) (unknown) the left. Conc robyn for left hip tenderness unable to mobilize hip due to severe (units unknown) (unknown) (unknown) (no date) (unknown) (unknown) the patella un able to move and significant pain. 911 was called and she was (units unknown) (unknown) (unknown) (no date) (unknown) (unknown) the right side of her head she is (she is not on blood thinners, there was no (units unknown) (unknown) (unknown) (no date) (unknown) (unknown) tonight. (units unknown) (unknown) (unknown) (no date) (unknown) (unknown) transported to the emergency department. She received 5 mg of Versed and 100 mg (units unknown) (unknown) (unknown) (no date) (unknown) (unknown) trauma, pelvic trauma no evidence of acute stroke or alternate explanation for (units unknown) (unknown) (unknown) (no date) (unknown) (unknown) trauma/injury (units unknown) (unknown) (unknown) (no date) (unknown) (unknown) unremarkable w ith full non painful range of motion at the shoulders elbows and (units unknown) (unknown) (unknown) (no date) (unknown) (unknown) wet floor. She remembers landing mostly on her right side, small contusion to (units unknown) (unknown) (unknown) (no date) (unknown) (unknown) with a signifi cant contusion to the left knee. Large amount of swelling over (units unknown) (unknown) (unknown) (no date) (unknown) (unknown) wrists bilaterally ( units unknown) (unknown) Result panel 12 (unknown) (no date) (unknown) (unknown) (no value) (units unknown) (unknown) (unknown) (no date) (unknown) (unknown) [id number] (units unknown) (unknown) (unknown) (no date) (unknown) (unknown) 07/05/22 16:34 (unit s unknown) (unknown) (unknown) (no date) (unknown) (unknown) 07/05/22 17:06 (unit s unknown) (unknown) (unknown) (no date) (unknown) (unknown) 07/05/22 17:09 (unit s unknown) (unknown) (unknown) (no date) (unknown) (unknown) 07/05/22 17:50 (unit s unknown) (unknown) (unknown) (no date) (unknown) (unknown) 07/05/22 Range/Units (units unknown) (unknown) (unknown) (no date) (unknown) (unknown) 07/05/22 (units unknown) (unknown) (unknown) (no date) (unknown) (unknown) 1 tab PO Q4HP PRNQty: 20 0RF (units unknown) (unknown) (unknown) (no date) (unknown) (unknown) 16:23 07/05/22 (unit s unknown) (unknown) (unknown) (no date) (unknown) (unknown) 16:24 07/05/22 (unit s unknown) (unknown) (unknown) (no date) (unknown) (unknown) 16:24 (units unknown) (unknown) (unknown) (no date) (unknown) (unknown) 16:26 07/05/22 (unit s unknown) (unknown) (unknown) (no date) (unknown) (unknown) 16:30 07/05/22 (unit s unknown) (unknown) (unknown) (no date) (unknown) (unknown) 16:30 (units unknown) (unknown) (unknown) (no date) (unknown) (unknown) 17:00 07/05/22 (unit s unknown) (unknown) (unknown) (no date) (unknown) (unknown) 17:36 (units unknown) (unknown) (unknown) (no date) (unknown) (unknown) 17:37 07/05/22 (unit s unknown) (unknown) (unknown) (no date) (unknown) (unknown) 17:50 (units unknown) (unknown) (unknown) (no date) (unknown) (unknown) 18:00 07/05/22 (unit s unknown) (unknown) (unknown) (no date) (unknown) (unknown) 18:00 (units unknown) (unknown) (unknown) (no date) (unknown) (unknown) 18:30 07/05/22 (unit s unknown) (unknown) (unknown) (no date) (unknown) (unknown) 18:30 (units unknown) (unknown) (unknown) (no date) (unknown) (unknown) 61-year-old wo man with history of type 2 diabetes was at home and slipped on a (units unknown) (unknown) (unknown) (no date) (unknown) (unknown) 650 mg PO PRN Qty: 0 (units unknown) (unknown) (unknown) (no date) (unknown) (unknown) AND ABD (units unknown) (unknown) (unknown) (no date) (unknown) (unknown) Abdomen: Soft, nontender, good bowel tones, no flank pain, no tenderness to (units unknown) (unknown) (unknown) (no date) (unknown) (unknown) Admin: 3 17:12 Dose: 0.5 mg (units unknown) (unknown) (unknown) (no date) (unknown) (unknown) Age/Sex: 61 / F (uni ts unknown) (unknown) (unknown) (no date) (unknown) (unknown) Allergies (units unknown) (unknown) (unknown) (no date) (unknown) (unknown) Allergy/AdvRea c Type Severity Reaction Status Date / Time (units unknown) (unknown) (unknown) (no date) (unknown) (unknown) Blood Pressure 131/64 (units unknown) (unknown) (unknown) (no date) (unknown) (unknown) Blood Pressure 132/75 133/64 (units unknown) (unknown) (unknown) (no date) (unknown) (unknown) Blood Pressure 153/78 H (units unknown) (unknown) (unknown) (no date) (unknown) (unknown) Blood Pressure 159/81 H 159/81 H (units unknown) (unknown) (unknown) (no date) (unknown) (unknown) Blood Pressure 168/85 H (units unknown) (unknown) (unknown) (no date) (unknown) (unknown) Kristi Hood PA-C [Primary Care Provider] (units unknown) (unknown) (unknown) (no date) (unknown) (unknown) CC: Modified t rauma with complaints of severe left knee pain (units unknown) (unknown) (unknown) (no date) (unknown) (unknown) COVID19 -Nasal RAPID Stat (units unknown) (unknown) (unknown) (no date) (unknown) (unknown) CT cervical sp ine wo con Stat (units unknown) (unknown) (unknown) (no date) (unknown) (unknown) CT head/brain wo con Stat (units unknown) (unknown) (unknown) (no date) (unknown) (unknown) Cardiac: Regul ar rate and rhythm no murmurs no bruits (units unknown) (unknown) (unknown) (no date) (unknown) (unknown) Chest: No tend erness to clavicles ribcage thoracic spine (units unknown) (unknown) (unknown) (no date) (unknown) (unknown) Chief Complain t: Fall (units unknown) (unknown) (unknown) (no date) (unknown) (unknown) Clinical Impression: (units unknown) (unknown) (unknown) (no date) (unknown) (unknown) Complicating co-morbidities: Type 2 diabetes, prior stroke (units unknown) (unknown) (unknown) (no date) (unknown) (unknown) Consult to [facility] – [place] - [place] Stat (units unknown) (unknown) (unknown) (no date) (unknown) (unknown) Consultations: Dr. Calvillo, 6:00 p.m.. Recommendation is knee immobilizer and if (units unknown) (unknown) (unknown) (no date) (unknown) (unknown) Course (units unknown) (unknown) (unknown) (no date) (unknown) (unknown) : 3 Acct:[id number] (units unknown) (unknown) (unknown) (no date) (unknown) (unknown) Data collected from: patient, significant other (units unknown) (unknown) (unknown) (no date) (unknown) (unknown) Date of Servic e: 07/05/22 (units unknown) (unknown) (unknown) (no date) (unknown) (unknown) Departure (units unknown) (unknown) (unknown) (no date) (unknown) (unknown) Differential considered: Obvious knee injury, concern for head, cervical spine (units unknown) (unknown) (unknown) (no date) (unknown) (unknown) Discharge Plan (unit s unknown) (unknown) (unknown) (no date) (unknown) (unknown) Discussion: (units unknown) (unknown) (unknown) (no date) (unknown) (unknown) Documented By: SB (u nits unknown) (unknown) (unknown) (no date) (unknown) (unknown) ED Orders (units unknown) (unknown) (unknown) (no date) (unknown) (unknown) ER Physician: Funmi Guerrero MD (units unknown) (unknown) (unknown) (no date) (unknown) (unknown) Emergency Report (un its unknown) (unknown) (unknown) (no date) (unknown) (unknown) Exam documente d above, pertinent findings include: (units unknown) (unknown) (unknown) (no date) (unknown) (unknown) Exam (units unknown) (unknown) (unknown) (no date) (unknown) (unknown) Extremities: Significant pain and swelling left knee, unable to straighten leg. (units unknown) (unknown) (unknown) (no date) (unknown) (unknown) Full and symme trical air movement (units unknown) (unknown) (unknown) (no date) (unknown) (unknown) General (units unknown) (unknown) (unknown) (no date) (unknown) (unknown) General: In ob vious pain secondary to knee injury but able to participate with (units unknown) (unknown) (unknown) (no date) (unknown) (unknown) HEENT: Moist m ucous membranes, normal sclera with reactive pupils, no obvious (units unknown) (unknown) (unknown) (no date) (unknown) (unknown) HPI - Fall (units unknown) (unknown) (unknown) (no date) (unknown) (unknown) HPI Narrative: (unit s unknown) (unknown) (unknown) (no date) (unknown) (unknown) History of Pre sent Illness (units unknown) (unknown) (unknown) (no date) (unknown) (unknown) History of stroke (u nits unknown) (unknown) (unknown) (no date) (unknown) (unknown) Home Medications (un its unknown) (unknown) (unknown) (no date) (unknown) (unknown) Hydromorphone HCl (Hydromorphone 0.5 Mg Inj) 0.5 mg IV Q15MIN PRN (units unknown) (unknown) (unknown) (no date) (unknown) (unknown) Imaging studie s independently reviewed: (units unknown) (unknown) (unknown) (no date) (unknown) (unknown) Independently reviewed EKG as above (units unknown) (unknown) (unknown) (no date) (unknown) (unknown) Initial Vital Signs (units unknown) (unknown) (unknown) (no date) (unknown) (unknown) Initial Vital Signs: (units unknown) (unknown) (unknown) (no date) (unknown) (unknown) [address] [address] (units unknown) (unknown) (unknown) (no date) (unknown) (unknown) Lab Data (units unknown) (unknown) (unknown) (no date) (unknown) (unknown) Lab Results (units unknown) (unknown) (unknown) (no date) (unknown) (unknown) Lab Test resul ts independently reviewed as above. Pertinent findings: (units unknown) (unknown) (unknown) (no date) (unknown) (unknown) Labs: (units unknown) (unknown) (unknown) (no date) (unknown) (unknown) Last Admin: 18:58 Dose: 0.5 mg (units unknown) (unknown) (unknown) (no date) (unknown) (unknown) MDM - Fall (units unknown) (unknown) (unknown) (no date) (unknown) (unknown) MDM Narrative (units unknown) (unknown) (unknown) (no date) (unknown) (unknown) Medical Histor y (Updated 07/05/22 @ 19:43 by Funmi Guerrero MD) (units unknown) (unknown) (unknown) (no date) (unknown) (unknown) Medical decisi on making narrative: (units unknown) (unknown) (unknown) (no date) (unknown) (unknown) Medication Instructions Recorded Confirmed (units unknown) (unknown) (unknown) (no date) (unknown) (unknown) Medication Instructions Recorded (units unknown) (unknown) (unknown) (no date) (unknown) (unknown) Mode of arrival: EMS (units unknown) (unknown) (unknown) (no date) (unknown) (unknown) Narrative: (units unknown) (unknown) (unknown) (no date) (unknown) (unknown) Neck: No signi ficant midline tenderness mild bilateral trapezius muscle (units unknown) (unknown) (unknown) (no date) (unknown) (unknown) Neurologic: Gr ossly neurologically intact with no obvious asymmetries or (units unknown) (unknown) (unknown) (no date) (unknown) (unknown) No Action (units unknown) (unknown) (unknown) (no date) (unknown) (unknown) No ankle or fo ot abnormalities. Question of hip pain. Upper extremities are (units unknown) (unknown) (unknown) (no date) (unknown) (unknown) Ordered: (units unknown) (unknown) (unknown) (no date) (unknown) (unknown) Orders (units unknown) (unknown) (unknown) (no date) (unknown) (unknown) Oxygen Deliver y Method Room Air (units unknown) (unknown) (unknown) (no date) (unknown) (unknown) Oxygen Deliver y Method (units unknown) (unknown) (unknown) (no date) (unknown) (unknown) PAIN (units unknown) (unknown) (unknown) (no date) (unknown) (unknown) PRN Reason: Pain, (u nits unknown) (unknown) (unknown) (no date) (unknown) (unknown) Patellar fract ure, Fall, Abrasion of elbow (units unknown) (unknown) (unknown) (no date) (unknown) (unknown) Patient Dispos ition: Home (units unknown) (unknown) (unknown) (no date) (unknown) (unknown) Patient History (uni ts unknown) (unknown) (unknown) (no date) (unknown) (unknown) Patient: Anila Sanz MR#: [id number] (units unknown) (unknown) (unknown) (no date) (unknown) (unknown) Pelvis: Minor tenderness with compression on the anterior iliac crests more on (units unknown) (unknown) (unknown) (no date) (unknown) (unknown) Prescriptions: (unit s unknown) (unknown) (unknown) (no date) (unknown) (unknown) Previous Rx's (units unknown) (unknown) (unknown) (no date) (unknown) (unknown) Psych: Coopera tive, appropriate insight and affect (units unknown) (unknown) (unknown) (no date) (unknown) (unknown) Pulse Oximetry 97 07/05/22 16:23 (units unknown) (unknown) (unknown) (no date) (unknown) (unknown) Pulse Oximetry 97 95 (units unknown) (unknown) (unknown) (no date) (unknown) (unknown) Pulse Oximetry 97 99 (units unknown) (unknown) (unknown) (no date) (unknown) (unknown) Pulse Oximetry 98 97 (units unknown) (unknown) (unknown) (no date) (unknown) (unknown) Pulse Oximetry 99 (u nits unknown) (unknown) (unknown) (no date) (unknown) (unknown) Pulse Rate 70 07/05/22 16:23 (units unknown) (unknown) (unknown) (no date) (unknown) (unknown) Pulse Rate 71 (units unknown) (unknown) (unknown) (no date) (unknown) (unknown) Pulse Rate 73 72 (un its unknown) (unknown) (unknown) (no date) (unknown) (unknown) Pulse Rate 74 70 (un its unknown) (unknown) (unknown) (no date) (unknown) (unknown) Pulse Rate 74 72 (un its unknown) (unknown) (unknown) (no date) (unknown) (unknown) Pulse Rate 74 77 (un its unknown) (unknown) (unknown) (no date) (unknown) (unknown) Re-evaluations: (uni ts unknown) (unknown) (unknown) (no date) (unknown) (unknown) Referrals: (units unknown) (unknown) (unknown) (no date) (unknown) (unknown) Related Data (units unknown) (unknown) (unknown) (no date) (unknown) (unknown) Remainder of complete review of systems is otherwise unremarkable except for (units unknown) (unknown) (unknown) (no date) (unknown) (unknown) Respiratory Rate 22 (units unknown) (unknown) (unknown) (no date) (unknown) (unknown) Respiratory Rate (un its unknown) (unknown) (unknown) (no date) (unknown) (unknown) Respiratory: L ungs are clear to auscultation, no wheezing no rales no rhonchi. (units unknown) (unknown) (unknown) (no date) (unknown) (unknown) Review of Systems (u nits unknown) (unknown) (unknown) (no date) (unknown) (unknown) SARS-CoV-2 (PC R) Negative (Negative) (units unknown) (unknown) (unknown) (no date) (unknown) (unknown) Severe left kn ee pain unable to straighten swelling over the patella, injury so (units unknown) (unknown) (unknown) (no date) (unknown) (unknown) Signed By: (units unknown) (unknown) (unknown) (no date) (unknown) (unknown) Skin: Warm and dry, minor abrasion to the right elbow (units unknown) (unknown) (unknown) (no date) (unknown) (unknown) Smoking Status : Former smoker (units unknown) (unknown) (unknown) (no date) (unknown) (unknown) Social History (units unknown) (unknown) (unknown) (no date) (unknown) (unknown) Source: patien t, family and EMS (units unknown) (unknown) (unknown) (no date) (unknown) (unknown) Stand Alone Fo tanya: Patient Portal/API (units unknown) (unknown) (unknown) (no date) (unknown) (unknown) Stated Complai nt: Fall, frax patella (units unknown) (unknown) (unknown) (no date) (unknown) (unknown) Substance Use Type: does not use (units unknown) (unknown) (unknown) (no date) (unknown) (unknown) Temperature 98.1 F ( units unknown) (unknown) (unknown) (no date) (unknown) (unknown) Temperature (units unknown) (unknown) (unknown) (no date) (unknown) (unknown) Time Seen by Provider: 07/05/22 17:00 (units unknown) (unknown) (unknown) (no date) (unknown) (unknown) Treatments: (units unknown) (unknown) (unknown) (no date) (unknown) (unknown) Type 2 diabete s mellitus (units unknown) (unknown) (unknown) (no date) (unknown) (unknown) Vital Signs - 8 hr ( units unknown) (unknown) (unknown) (no date) (unknown) (unknown) Vital Signs (units unknown) (unknown) (unknown) (no date) (unknown) (unknown) Vital signs: (units unknown) (unknown) (unknown) (no date) (unknown) (unknown) X-ray of the k merry shows Transverse mid patellar fracture with distraction of the (units unknown) (unknown) (unknown) (no date) (unknown) (unknown) XR hip w pel i f done LT 2V Stat (units unknown) (unknown) (unknown) (no date) (unknown) (unknown) XR knee LT 3V Stat ( units unknown) (unknown) (unknown) (no date) (unknown) (unknown) abnormalities (units unknown) (unknown) (unknown) (no date) (unknown) (unknown) acetaminophen 325 MG tablet (units unknown) (unknown) (unknown) (no date) (unknown) (unknown) acetaminophen 325 mg tablet 650 mg PO PRN ##0 12/20/09 (units unknown) (unknown) (unknown) (no date) (unknown) (unknown) alcohol intake frequency: other (units unknown) (unknown) (unknown) (no date) (unknown) (unknown) chronic pain , opioid or alcohol use disorder. (units unknown) (unknown) (unknown) (no date) (unknown) (unknown) codeine [CODEI NE] AdvReac Intermediate CRAMPING Verified 08/25/18 23:11 (units unknown) (unknown) (unknown) (no date) (unknown) (unknown) distracting remainder of exam is difficult to fully assess in terms of (units unknown) (unknown) (unknown) (no date) (unknown) (unknown) exam, cooperative (u nits unknown) (unknown) (unknown) (no date) (unknown) (unknown) fracture fragments.Tricompart mental degenerative changes of the left knee. (units unknown) (unknown) (unknown) (no date) (unknown) (unknown) hydrocodone 5 mg-acetaminophen 325 1 tab PO Q4HP PRN #20 tabs 05/30/17 (units unknown) (unknown) (unknown) (no date) (unknown) (unknown) hydrocodone-ac etamin ophen [[place]] 5 MG/325 MG tablet (units unknown) (unknown) (unknown) (no date) (unknown) (unknown) knee pain. Rig ht side is unremarkable (units unknown) (unknown) (unknown) (no date) (unknown) (unknown) lives independ ently: Yes (units unknown) (unknown) (unknown) (no date) (unknown) (unknown) loss of consciousness) minor contusion to the right elbow and somehow ended up (units unknown) (unknown) (unknown) (no date) (unknown) (unknown) lumbar spine (units unknown) (unknown) (unknown) (no date) (unknown) (unknown) marital status : (units unknown) (unknown) (unknown) (no date) (unknown) (unknown) medicated prio r to exam (units unknown) (unknown) (unknown) (no date) (unknown) (unknown) mg tablet ([place]) (u nits unknown) (unknown) (unknown) (no date) (unknown) (unknown) need walker or crutches appropriate pain control and follow-up in clinic to call (units unknown) (unknown) (unknown) (no date) (unknown) (unknown) of fentanyl an d is still having fairly significant pain. She has no history of (units unknown) (unknown) (unknown) (no date) (unknown) (unknown) on Friday. Kristian l likely need operative intervention and this will not be (units unknown) (unknown) (unknown) (no date) (unknown) (unknown) she is unable to straighten her knee a posterior splint for comfort. She will (units unknown) (unknown) (unknown) (no date) (unknown) (unknown) tenderness to her head and no clinical skull fracture (units unknown) (unknown) (unknown) (no date) (unknown) (unknown) tenderness, sh e has significant distracting injuries and has been significantly (units unknown) (unknown) (unknown) (no date) (unknown) (unknown) that included in the HPI. (units unknown) (unknown) (unknown) (no date) (unknown) (unknown) the fall (units unknown) (unknown) (unknown) (no date) (unknown) (unknown) the left. Conc robyn for left hip tenderness unable to mobilize hip due to severe (units unknown) (unknown) (unknown) (no date) (unknown) (unknown) the patella un able to move and significant pain. 911 was called and she was (units unknown) (unknown) (unknown) (no date) (unknown) (unknown) the right side of her head she is (she is not on blood thinners, there was no (units unknown) (unknown) (unknown) (no date) (unknown) (unknown) tonight. (units unknown) (unknown) (unknown) (no date) (unknown) (unknown) transported to the emergency department. She received 5 mg of Versed and 100 mg (units unknown) (unknown) (unknown) (no date) (unknown) (unknown) trauma, pelvic trauma no evidence of acute stroke or alternate explanation for (units unknown) (unknown) (unknown) (no date) (unknown) (unknown) trauma/injury (units unknown) (unknown) (unknown) (no date) (unknown) (unknown) unremarkable w ith full non painful range of motion at the shoulders elbows and (units unknown) (unknown) (unknown) (no date) (unknown) (unknown) wet floor. She remembers landing mostly on her right side, small contusion to (units unknown) (unknown) (unknown) (no date) (unknown) (unknown) with a signifi cant contusion to the left knee. Large amount of swelling over (units unknown) (unknown) (unknown) (no date) (unknown) (unknown) wrists bilaterally ( units unknown) (unknown) Result panel 13 (unknown) (no date) (unknown) (unknown) (no value) (units unknown) (unknown) (unknown) (no date) (unknown) (unknown) - Abrasion of right elbow, initial encounter (units unknown) (unknown) (unknown) (no date) (unknown) (unknown) [id number] (units unknown) (unknown) (unknown) (no date) (unknown) (unknown) 07/05/22 16:34 (unit s unknown) (unknown) (unknown) (no date) (unknown) (unknown) 07/05/22 17:06 (unit s unknown) (unknown) (unknown) (no date) (unknown) (unknown) 07/05/22 17:09 (unit s unknown) (unknown) (unknown) (no date) (unknown) (unknown) 07/05/22 17:50 (unit s unknown) (unknown) (unknown) (no date) (unknown) (unknown) 07/05/22 Range/Units (units unknown) (unknown) (unknown) (no date) (unknown) (unknown) 07/05/22 (units unknown) (unknown) (unknown) (no date) (unknown) (unknown) 1 tab PO Q4HP PRNQty: 20 0RF (units unknown) (unknown) (unknown) (no date) (unknown) (unknown) 16:23 07/05/22 (unit s unknown) (unknown) (unknown) (no date) (unknown) (unknown) 16:24 07/05/22 (unit s unknown) (unknown) (unknown) (no date) (unknown) (unknown) 16:24 (units unknown) (unknown) (unknown) (no date) (unknown) (unknown) 16:26 07/05/22 (unit s unknown) (unknown) (unknown) (no date) (unknown) (unknown) 16:30 07/05/22 (unit s unknown) (unknown) (unknown) (no date) (unknown) (unknown) 16:30 (units unknown) (unknown) (unknown) (no date) (unknown) (unknown) 17:00 07/05/22 (unit s unknown) (unknown) (unknown) (no date) (unknown) (unknown) 17:36 (units unknown) (unknown) (unknown) (no date) (unknown) (unknown) 17:37 07/05/22 (unit s unknown) (unknown) (unknown) (no date) (unknown) (unknown) 17:50 (units unknown) (unknown) (unknown) (no date) (unknown) (unknown) 18:00 07/05/22 (unit s unknown) (unknown) (unknown) (no date) (unknown) (unknown) 18:00 (units unknown) (unknown) (unknown) (no date) (unknown) (unknown) 18:30 07/05/22 (unit s unknown) (unknown) (unknown) (no date) (unknown) (unknown) 18:30 (units unknown) (unknown) (unknown) (no date) (unknown) (unknown) 4 mg PO Q8H NM N (Reason: nausea and vomiting) Qty: 10 0RF (units unknown) (unknown) (unknown) (no date) (unknown) (unknown) 61-year-old wo man with history of type 2 diabetes was at home and slipped on a (units unknown) (unknown) (unknown) (no date) (unknown) (unknown) 61-year-old wo man with mechanical fall patellar fracture left side now on any (units unknown) (unknown) (unknown) (no date) (unknown) (unknown) 650 mg PO PRN Qty: 0 (units unknown) (unknown) (unknown) (no date) (unknown) (unknown) AND ABD (units unknown) (unknown) (unknown) (no date) (unknown) (unknown) Abdomen: Soft, nontender, good bowel tones, no flank pain, no tenderness to (units unknown) (unknown) (unknown) (no date) (unknown) (unknown) Abrasion of elbow (u nits unknown) (unknown) (unknown) (no date) (unknown) (unknown) Admin: 3 17:12 Dose: 0.5 mg (units unknown) (unknown) (unknown) (no date) (unknown) (unknown) Age/Sex: 61 / F (uni ts unknown) (unknown) (unknown) (no date) (unknown) (unknown) Allergies (units unknown) (unknown) (unknown) (no date) (unknown) (unknown) Allergy/AdvRea c Type Severity Reaction Status Date / Time (units unknown) (unknown) (unknown) (no date) (unknown) (unknown) Blood Pressure 131/64 (units unknown) (unknown) (unknown) (no date) (unknown) (unknown) Blood Pressure 132/75 133/64 (units unknown) (unknown) (unknown) (no date) (unknown) (unknown) Blood Pressure 153/78 H (units unknown) (unknown) (unknown) (no date) (unknown) (unknown) Blood Pressure 159/81 H 159/81 H (units unknown) (unknown) (unknown) (no date) (unknown) (unknown) Blood Pressure 168/85 H (units unknown) (unknown) (unknown) (no date) (unknown) (unknown) Kristi Hood PA-C [Primary Care Provider] (units unknown) (unknown) (unknown) (no date) (unknown) (unknown) CC: Modified t rauma with complaints of severe left knee pain (units unknown) (unknown) (unknown) (no date) (unknown) (unknown) COVID19 -Nasal RAPID Stat (units unknown) (unknown) (unknown) (no date) (unknown) (unknown) CT cervical sp ine wo con Stat (units unknown) (unknown) (unknown) (no date) (unknown) (unknown) CT head/brain wo con Stat (units unknown) (unknown) (unknown) (no date) (unknown) (unknown) Cardiac: Regul ar rate and rhythm no murmurs no bruits (units unknown) (unknown) (unknown) (no date) (unknown) (unknown) Chest: No tend erness to clavicles ribcage thoracic spine (units unknown) (unknown) (unknown) (no date) (unknown) (unknown) Chief Complain t: Fall (units unknown) (unknown) (unknown) (no date) (unknown) (unknown) Clinical Impression: (units unknown) (unknown) (unknown) (no date) (unknown) (unknown) Complicating co-morbidities: Type 2 diabetes, prior stroke (units unknown) (unknown) (unknown) (no date) (unknown) (unknown) Consult to [facility] – [place], [place] - [place] Stat (units unknown) (unknown) (unknown) (no date) (unknown) (unknown) Consultations: Dr. Calvillo, 6:00 p.m.. Recommendation is knee immobilizer and if (units unknown) (unknown) (unknown) (no date) (unknown) (unknown) Course (units unknown) (unknown) (unknown) (no date) (unknown) (unknown) : 3 Acct:[id number] (units unknown) (unknown) (unknown) (no date) (unknown) (unknown) Data collected from: patient, significant other (units unknown) (unknown) (unknown) (no date) (unknown) (unknown) Date of Servic e: 07/05/22 (units unknown) (unknown) (unknown) (no date) (unknown) (unknown) Departure (units unknown) (unknown) (unknown) (no date) (unknown) (unknown) Differential considered: Obvious knee injury, concern for head, cervical spine (units unknown) (unknown) (unknown) (no date) (unknown) (unknown) Discharge Plan (unit s unknown) (unknown) (unknown) (no date) (unknown) (unknown) Discussion: (units unknown) (unknown) (unknown) (no date) (unknown) (unknown) Documented By: SB (u nits unknown) (unknown) (unknown) (no date) (unknown) (unknown) ED Orders (units unknown) (unknown) (unknown) (no date) (unknown) (unknown) ER Physician: Funmi Guerrero MD (units unknown) (unknown) (unknown) (no date) (unknown) (unknown) Emergency Report (un its unknown) (unknown) (unknown) (no date) (unknown) (unknown) Encounter type : initial encounter Fracture type: closed Fracture morphology: (units unknown) (unknown) (unknown) (no date) (unknown) (unknown) Encounter type : initial encounter Laterality: right Qualified Code(s): S50.311A (units unknown) (unknown) (unknown) (no date) (unknown) (unknown) Encounter type : initial encounter Qualified Code(s): W19.XXXA - Unspecified (units unknown) (unknown) (unknown) (no date) (unknown) (unknown) Exam documente d above, pertinent findings include: (units unknown) (unknown) (unknown) (no date) (unknown) (unknown) Exam (units unknown) (unknown) (unknown) (no date) (unknown) (unknown) Extremities: Significant pain and swelling left knee, unable to straighten leg. (units unknown) (unknown) (unknown) (no date) (unknown) (unknown) Fall (units unknown) (unknown) (unknown) (no date) (unknown) (unknown) Full and symme trical air movement (units unknown) (unknown) (unknown) (no date) (unknown) (unknown) General (units unknown) (unknown) (unknown) (no date) (unknown) (unknown) General: In ob vious pain secondary to knee injury but able to participate with (units unknown) (unknown) (unknown) (no date) (unknown) (unknown) HEENT: Moist m ucous membranes, normal sclera with reactive pupils, no obvious (units unknown) (unknown) (unknown) (no date) (unknown) (unknown) HPI - Fall (units unknown) (unknown) (unknown) (no date) (unknown) (unknown) HPI Narrative: (unit s unknown) (unknown) (unknown) (no date) (unknown) (unknown) History of Pre sent Illness (units unknown) (unknown) (unknown) (no date) (unknown) (unknown) History of stroke (u nits unknown) (unknown) (unknown) (no date) (unknown) (unknown) Home Medications (un its unknown) (unknown) (unknown) (no date) (unknown) (unknown) Hydromorphone HCl (Hydromorphone 0.5 Mg Inj) 0.5 mg IV Q15MIN PRN (units unknown) (unknown) (unknown) (no date) (unknown) (unknown) Imaging studie s independently reviewed: (units unknown) (unknown) (unknown) (no date) (unknown) (unknown) Independently reviewed EKG as above (units unknown) (unknown) (unknown) (no date) (unknown) (unknown) Initial Vital Signs (units unknown) (unknown) (unknown) (no date) (unknown) (unknown) Initial Vital Signs: (units unknown) (unknown) (unknown) (no date) (unknown) (unknown) [address] [address] (units unknown) (unknown) (unknown) (no date) (unknown) (unknown) Lab Data (units unknown) (unknown) (unknown) (no date) (unknown) (unknown) Lab Results (units unknown) (unknown) (unknown) (no date) (unknown) (unknown) Lab Test resul ts independently reviewed as above. Pertinent findings: (units unknown) (unknown) (unknown) (no date) (unknown) (unknown) Labs: (units unknown) (unknown) (unknown) (no date) (unknown) (unknown) Last Admin: 18:58 Dose: 0.5 mg (units unknown) (unknown) (unknown) (no date) (unknown) (unknown) MDM - Fall (units unknown) (unknown) (unknown) (no date) (unknown) (unknown) MDM Narrative (units unknown) (unknown) (unknown) (no date) (unknown) (unknown) Medical Histor y (Updated 07/05/22 @ 19:43 by Funmi Guerrero MD) (units unknown) (unknown) (unknown) (no date) (unknown) (unknown) Medical decisi on making narrative: (units unknown) (unknown) (unknown) (no date) (unknown) (unknown) Medication Instructions Recorded Confirmed (units unknown) (unknown) (unknown) (no date) (unknown) (unknown) Medication Instructions Recorded (units unknown) (unknown) (unknown) (no date) (unknown) (unknown) Mode of arrival: EMS (units unknown) (unknown) (unknown) (no date) (unknown) (unknown) Narrative: (units unknown) (unknown) (unknown) (no date) (unknown) (unknown) Neck: No signi ficant midline tenderness mild bilateral trapezius muscle (units unknown) (unknown) (unknown) (no date) (unknown) (unknown) Neurologic: Gr ossly neurologically intact with no obvious asymmetries or (units unknown) (unknown) (unknown) (no date) (unknown) (unknown) New (units unknown) (unknown) (unknown) (no date) (unknown) (unknown) No Action (units unknown) (unknown) (unknown) (no date) (unknown) (unknown) No ankle or fo ot abnormalities. Question of hip pain. Upper extremities are (units unknown) (unknown) (unknown) (no date) (unknown) (unknown) Ordered: (units unknown) (unknown) (unknown) (no date) (unknown) (unknown) Orders (units unknown) (unknown) (unknown) (no date) (unknown) (unknown) Oxygen Deliver y Method Room Air (units unknown) (unknown) (unknown) (no date) (unknown) (unknown) Oxygen Deliver y Method (units unknown) (unknown) (unknown) (no date) (unknown) (unknown) PAIN (units unknown) (unknown) (unknown) (no date) (unknown) (unknown) PRN Reason: Pain, (u nits unknown) (unknown) (unknown) (no date) (unknown) (unknown) Patellar fracture (u nits unknown) (unknown) (unknown) (no date) (unknown) (unknown) Patient Dispos ition: Home (units unknown) (unknown) (unknown) (no date) (unknown) (unknown) Patient History (uni ts unknown) (unknown) (unknown) (no date) (unknown) (unknown) Patient notes that they are having difficulty paying for insulin (units unknown) (unknown) (unknown) (no date) (unknown) (unknown) Patient: Anila Sanz MR#: [id number] (units unknown) (unknown) (unknown) (no date) (unknown) (unknown) Pelvis: Minor tenderness with compression on the anterior iliac crests more on (units unknown) (unknown) (unknown) (no date) (unknown) (unknown) Prescriptions: (unit s unknown) (unknown) (unknown) (no date) (unknown) (unknown) Previous Rx's (units unknown) (unknown) (unknown) (no date) (unknown) (unknown) Psych: Coopera tive, appropriate insight and affect (units unknown) (unknown) (unknown) (no date) (unknown) (unknown) Pulse Oximetry 97 07/05/22 16:23 (units unknown) (unknown) (unknown) (no date) (unknown) (unknown) Pulse Oximetry 97 95 (units unknown) (unknown) (unknown) (no date) (unknown) (unknown) Pulse Oximetry 97 99 (units unknown) (unknown) (unknown) (no date) (unknown) (unknown) Pulse Oximetry 98 97 (units unknown) (unknown) (unknown) (no date) (unknown) (unknown) Pulse Oximetry 99 (u nits unknown) (unknown) (unknown) (no date) (unknown) (unknown) Pulse Rate 70 07/05/22 16:23 (units unknown) (unknown) (unknown) (no date) (unknown) (unknown) Pulse Rate 71 (units unknown) (unknown) (unknown) (no date) (unknown) (unknown) Pulse Rate 73 72 (un its unknown) (unknown) (unknown) (no date) (unknown) (unknown) Pulse Rate 74 70 (un its unknown) (unknown) (unknown) (no date) (unknown) (unknown) Pulse Rate 74 72 (un its unknown) (unknown) (unknown) (no date) (unknown) (unknown) Pulse Rate 74 77 (un its unknown) (unknown) (unknown) (no date) (unknown) (unknown) Qualifiers: (units unknown) (unknown) (unknown) (no date) (unknown) (unknown) Questions are answered and patient is safe for discharge home (units unknown) (unknown) (unknown) (no date) (unknown) (unknown) Referrals: (units unknown) (unknown) (unknown) (no date) (unknown) (unknown) Related Data (units unknown) (unknown) (unknown) (no date) (unknown) (unknown) Remainder of complete review of systems is otherwise unremarkable except for (units unknown) (unknown) (unknown) (no date) (unknown) (unknown) Respiratory Rate 22 (units unknown) (unknown) (unknown) (no date) (unknown) (unknown) Respiratory Rate (un its unknown) (unknown) (unknown) (no date) (unknown) (unknown) Respiratory: L ungs are clear to auscultation, no wheezing no rales no rhonchi. (units unknown) (unknown) (unknown) (no date) (unknown) (unknown) Review of Systems (u nits unknown) (unknown) (unknown) (no date) (unknown) (unknown) S82.042A - Dis placed comminuted fracture of left patella, initial encounter for (units unknown) (unknown) (unknown) (no date) (unknown) (unknown) SARS-CoV-2 (PC R) Negative (Negative) (units unknown) (unknown) (unknown) (no date) (unknown) (unknown) Severe left kn ee pain unable to straighten swelling over the patella, injury so (units unknown) (unknown) (unknown) (no date) (unknown) (unknown) Signed By: (units unknown) (unknown) (unknown) (no date) (unknown) (unknown) Skin: Warm and dry, minor abrasion to the right elbow (units unknown) (unknown) (unknown) (no date) (unknown) (unknown) Smoking Status : Former smoker (units unknown) (unknown) (unknown) (no date) (unknown) (unknown) Social History (units unknown) (unknown) (unknown) (no date) (unknown) (unknown) Social determi [facility] that may influence the patients condition: (units unknown) (unknown) (unknown) (no date) (unknown) (unknown) Source: patien t, family and EMS (units unknown) (unknown) (unknown) (no date) (unknown) (unknown) Stand Alone Fo tanya: Patient Portal/API (units unknown) (unknown) (unknown) (no date) (unknown) (unknown) Stated Complai nt: Fall, frax patella (units unknown) (unknown) (unknown) (no date) (unknown) (unknown) Substance Use Type: does not use (units unknown) (unknown) (unknown) (no date) (unknown) (unknown) Temperature 98.1 F ( units unknown) (unknown) (unknown) (no date) (unknown) (unknown) Temperature (units unknown) (unknown) (unknown) (no date) (unknown) (unknown) Time Seen by Provider: 07/05/22 17:00 (units unknown) (unknown) (unknown) (no date) (unknown) (unknown) Treatments: Wi th adequate pain control patient was able to fully extend her (units unknown) (unknown) (unknown) (no date) (unknown) (unknown) Type 2 diabete s mellitus (units unknown) (unknown) (unknown) (no date) (unknown) (unknown) Vital Signs - 8 hr ( units unknown) (unknown) (unknown) (no date) (unknown) (unknown) Vital Signs (units unknown) (unknown) (unknown) (no date) (unknown) (unknown) Vital signs: (units unknown) (unknown) (unknown) (no date) (unknown) (unknown) Will be given instructions to follow-up with Dr. Calvillo as an outpatient. (units unknown) (unknown) (unknown) (no date) (unknown) (unknown) X-ray of the shaquille sousa shows Transverse mid patellar fracture with distraction of the (units unknown) (unknown) (unknown) (no date) (unknown) (unknown) XR hip w pel i f done LT 2V Stat (units unknown) (unknown) (unknown) (no date) (unknown) (unknown) XR knee LT 3V Stat ( units unknown) (unknown) (unknown) (no date) (unknown) (unknown) a walker. (units unknown) (unknown) (unknown) (no date) (unknown) (unknown) abnormalities (units unknown) (unknown) (unknown) (no date) (unknown) (unknown) acetaminophen 325 MG tablet (units unknown) (unknown) (unknown) (no date) (unknown) (unknown) acetaminophen 325 mg tablet 650 mg PO PRN ##0 12/20/09 (units unknown) (unknown) (unknown) (no date) (unknown) (unknown) alcohol intake frequency: other (units unknown) (unknown) (unknown) (no date) (unknown) (unknown) chronic pain , opioid or alcohol use disorder. (units unknown) (unknown) (unknown) (no date) (unknown) (unknown) closed fracture (uni ts unknown) (unknown) (unknown) (no date) (unknown) (unknown) codeine [CODEI NE] AdvReac Intermediate CRAMPING Verified 08/25/18 23:11 (units unknown) (unknown) (unknown) (no date) (unknown) (unknown) comminuted Fra cture alignment: displaced Laterality: left Qualified Code(s): (units unknown) (unknown) (unknown) (no date) (unknown) (unknown) continuing to vomit. She does feel that she will be able to manage at home. 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 (units unknown) (unknown) (unknown) (no date) (unknown) (unknown) hydrocodone 5 mg-acetaminophen 325 1 tab PO Q4HP PRN #20 tabs 05/30/17 (units unknown) (unknown) (unknown) (no date) (unknown) (unknown) hydrocodone-ac etamin ophen [[place]] 5 MG/325 MG tablet (units unknown) (unknown) (unknown) (no date) (unknown) (unknown) immobilizer, w alker and nausea medicine as the pain is significant enough she is (units unknown) (unknown) (unknown) (no date) (unknown) (unknown) immobilizer. W ill discharge her home with pain medicine recommendations, knee (units unknown) (unknown) (unknown) (no date) (unknown) (unknown) knee and be pl aced in a knee immobilizer and is actually a bit more comfortable (units unknown) (unknown) (unknown) (no date) (unknown) (unknown) knee pain. Rig ht side is unremarkable (units unknown) (unknown) (unknown) (no date) (unknown) (unknown) lives independ ently: Yes (units unknown) (unknown) (unknown) (no date) (unknown) (unknown) loss of consciousness) minor contusion to the right elbow and somehow ended up (units unknown) (unknown) (unknown) (no date) (unknown) (unknown) lumbar spine (units unknown) (unknown) (unknown) (no date) (unknown) (unknown) marital status : (units unknown) (unknown) (unknown) (no date) (unknown) (unknown) medicated prio r to exam (units unknown) (unknown) (unknown) (no date) (unknown) (unknown) mg tablet ([place]) (u nits unknown) (unknown) (unknown) (no date) (unknown) (unknown) need walker or crutches appropriate pain control and follow-up in clinic to call (units unknown) (unknown) (unknown) (no date) (unknown) (unknown) of fentanyl an d is still having fairly significant pain. She has no history of (units unknown) (unknown) (unknown) (no date) (unknown) (unknown) on Friday. Kristian l likely need operative intervention and this will not be (units unknown) (unknown) (unknown) (no date) (unknown) (unknown) ondansetron 4 mg disintegrating 4 mg PO Q8H PRN nausea and 07/05/22 (units unknown) (unknown) (unknown) (no date) (unknown) (unknown) ondansetron 4 mg tablet,disintegratin g (units unknown) (unknown) (unknown) (no date) (unknown) (unknown) she is unable to straighten her knee a posterior splint for comfort. She will (units unknown) (unknown) (unknown) (no date) (unknown) (unknown) tablet vomitin g #10 tabs (units unknown) (unknown) (unknown) (no date) (unknown) (unknown) tenderness to her head and no clinical skull fracture (units unknown) (unknown) (unknown) (no date) (unknown) (unknown) tenderness, sh e has significant distracting injuries and has been significantly (units unknown) (unknown) (unknown) (no date) (unknown) (unknown) that included in the HPI. (units unknown) (unknown) (unknown) (no date) (unknown) (unknown) the fall (units unknown) (unknown) (unknown) (no date) (unknown) (unknown) the left. Conc robyn for left hip tenderness unable to mobilize hip due to severe (units unknown) (unknown) (unknown) (no date) (unknown) (unknown) the patella un able to move and significant pain. 911 was called and she was (units unknown) (unknown) (unknown) (no date) (unknown) (unknown) the right side of her head she is (she is not on blood thinners, there was no (units unknown) (unknown) (unknown) (no date) (unknown) (unknown) tonight. (units unknown) (unknown) (unknown) (no date) (unknown) (unknown) transported to the emergency department. She received 5 mg of Versed and 100 mg (units unknown) (unknown) (unknown) (no date) (unknown) (unknown) trauma, pelvic trauma no evidence of acute stroke or alternate explanation for (units unknown) (unknown) (unknown) (no date) (unknown) (unknown) trauma/injury (units unknown) (unknown) (unknown) (no date) (unknown) (unknown) unremarkable w ith full non painful range of motion at the shoulders elbows and (units unknown) (unknown) (unknown) (no date) (unknown) (unknown) wet floor. She remembers landing mostly on her right side, small contusion to (units unknown) (unknown) (unknown) (no date) (unknown) (unknown) with a signifi cant contusion to the left knee. Large amount of swelling over (units unknown) (unknown) (unknown) (no date) (unknown) (unknown) with this. She is unable to manipulate crutches so she is discharged home with (units unknown) (unknown) (unknown) (no date) (unknown) (unknown) wrists bilaterally ( units unknown) (unknown) Result panel 14 (unknown) (no date) (unknown) (unknown) (no value) (units unknown) (unknown) (unknown) (no date) (unknown) (unknown) <Electronicall y signed by Funmi Guerrero MD> (units unknown) (unknown) (unknown) (no date) (unknown) (unknown) - Abrasion of right elbow, initial encounter (units unknown) (unknown) (unknown) (no date) (unknown) (unknown) [id number] (units unknown) (unknown) (unknown) (no date) (unknown) (unknown) 07/05/22 16:34 (unit s unknown) (unknown) (unknown) (no date) (unknown) (unknown) 07/05/22 17:06 (unit s unknown) (unknown) (unknown) (no date) (unknown) (unknown) 07/05/22 17:09 (unit s unknown) (unknown) (unknown) (no date) (unknown) (unknown) 07/05/22 17:50 (unit s unknown) (unknown) (unknown) (no date) (unknown) (unknown) 07/05/221955 (units unknown) (unknown) (unknown) (no date) (unknown) (unknown) 07/05/22 Range/Units (units unknown) (unknown) (unknown) (no date) (unknown) (unknown) 07/05/22 (units unknown) (unknown) (unknown) (no date) (unknown) (unknown) 1 tab PO Q4HP PRNQty: 20 0RF (units unknown) (unknown) (unknown) (no date) (unknown) (unknown) 1 tab PO Q6H P RN (Reason: pain) Qty: 20 0RF (units unknown) (unknown) (unknown) (no date) (unknown) (unknown) 16:23 07/05/22 (unit s unknown) (unknown) (unknown) (no date) (unknown) (unknown) 16:24 07/05/22 (unit s unknown) (unknown) (unknown) (no date) (unknown) (unknown) 16:24 (units unknown) (unknown) (unknown) (no date) (unknown) (unknown) 16:26 07/05/22 (unit s unknown) (unknown) (unknown) (no date) (unknown) (unknown) 16:30 07/05/22 (unit s unknown) (unknown) (unknown) (no date) (unknown) (unknown) 16:30 (units unknown) (unknown) (unknown) (no date) (unknown) (unknown) 17:00 07/05/22 (unit s unknown) (unknown) (unknown) (no date) (unknown) (unknown) 17:36 (units unknown) (unknown) (unknown) (no date) (unknown) (unknown) 17:37 07/05/22 (unit s unknown) (unknown) (unknown) (no date) (unknown) (unknown) 17:50 (units unknown) (unknown) (unknown) (no date) (unknown) (unknown) 18:00 07/05/22 (unit s unknown) (unknown) (unknown) (no date) (unknown) (unknown) 18:00 (units unknown) (unknown) (unknown) (no date) (unknown) (unknown) 18:30 07/05/22 (unit s unknown) (unknown) (unknown) (no date) (unknown) (unknown) 18:30 (units unknown) (unknown) (unknown) (no date) (unknown) (unknown) 4 mg PO Q8H NM N (Reason: nausea and vomiting) Qty: 10 0RF (units unknown) (unknown) (unknown) (no date) (unknown) (unknown) 61-year-old wo man with history of type 2 diabetes was at home and slipped on a (units unknown) (unknown) (unknown) (no date) (unknown) (unknown) 61-year-old wo man with mechanical fall patellar fracture left side now on any (units unknown) (unknown) (unknown) (no date) (unknown) (unknown) 650 mg PO PRN Qty: 0 (units unknown) (unknown) (unknown) (no date) (unknown) (unknown) AND ABD (units unknown) (unknown) (unknown) (no date) (unknown) (unknown) Abdomen: Soft, nontender, good bowel tones, no flank pain, no tenderness to (units unknown) (unknown) (unknown) (no date) (unknown) (unknown) Abrasion of elbow (u nits unknown) (unknown) (unknown) (no date) (unknown) (unknown) Activity Restrictions/Additio nal Instructions: (units unknown) (unknown) (unknown) (no date) (unknown) (unknown) Admin: 3 17:12 Dose: 0.5 mg (units unknown) (unknown) (unknown) (no date) (unknown) (unknown) Age/Sex: 61 / F (uni ts unknown) (unknown) (unknown) (no date) (unknown) (unknown) Allergies (units unknown) (unknown) (unknown) (no date) (unknown) (unknown) Allergy/AdvRea c Type Severity Reaction Status Date / Time (units unknown) (unknown) (unknown) (no date) (unknown) (unknown) Blood Pressure 131/64 (units unknown) (unknown) (unknown) (no date) (unknown) (unknown) Blood Pressure 132/75 133/64 (units unknown) (unknown) (unknown) (no date) (unknown) (unknown) Blood Pressure 153/78 H (units unknown) (unknown) (unknown) (no date) (unknown) (unknown) Blood Pressure 159/81 H 159/81 H (units unknown) (unknown) (unknown) (no date) (unknown) (unknown) Blood Pressure 168/85 H (units unknown) (unknown) (unknown) (no date) (unknown) (unknown) Kristi Hood PA-C [Primary Care Provider] (units unknown) (unknown) (unknown) (no date) (unknown) (unknown) CC: Modified t rauma with complaints of severe left knee pain (units unknown) (unknown) (unknown) (no date) (unknown) (unknown) COVID19 -Nasal RAPID Stat (units unknown) (unknown) (unknown) (no date) (unknown) (unknown) CT cervical sp ine wo con Stat (units unknown) (unknown) (unknown) (no date) (unknown) (unknown) CT head/brain wo con Stat (units unknown) (unknown) (unknown) (no date) (unknown) (unknown) Cardiac: Regul ar rate and rhythm no murmurs no bruits (units unknown) (unknown) (unknown) (no date) (unknown) (unknown) Chest: No tend erness to clavicles ribcage thoracic spine (units unknown) (unknown) (unknown) (no date) (unknown) (unknown) Chief Complain t: Fall (units unknown) (unknown) (unknown) (no date) (unknown) (unknown) Clinical Impression: (units unknown) (unknown) (unknown) (no date) (unknown) (unknown) Complicating co-morbidities: Type 2 diabetes, prior stroke (units unknown) (unknown) (unknown) (no date) (unknown) (unknown) Consult to [facility] – [place] - [place] Stat (units unknown) (unknown) (unknown) (no date) (unknown) (unknown) Consultations: Dr. Calvillo, 6:00 p.m.. Recommendation is knee immobilizer and if (units unknown) (unknown) (unknown) (no date) (unknown) (unknown) Course (units unknown) (unknown) (unknown) (no date) (unknown) (unknown) : 3 Acct:[id number] (units unknown) (unknown) (unknown) (no date) (unknown) (unknown) Data collected from: patient, significant other (units unknown) (unknown) (unknown) (no date) (unknown) (unknown) Date of Servic e: 07/05/22 (units unknown) (unknown) (unknown) (no date) (unknown) (unknown) Departure (units unknown) (unknown) (unknown) (no date) (unknown) (unknown) Differential considered: Obvious knee injury, concern for head, cervical spine (units unknown) (unknown) (unknown) (no date) (unknown) (unknown) Discharge Plan (unit s unknown) (unknown) (unknown) (no date) (unknown) (unknown) Discussion: (units unknown) (unknown) (unknown) (no date) (unknown) (unknown) Documented By: MARY (u nits unknown) (unknown) (unknown) (no date) (unknown) (unknown) ED Orders (units unknown) (unknown) (unknown) (no date) (unknown) (unknown) ER Physician: Funmi Guerrero MD (units unknown) (unknown) (unknown) (no date) (unknown) (unknown) Emergency Report (un its unknown) (unknown) (unknown) (no date) (unknown) (unknown) Encounter type : initial encounter Fracture type: closed Fracture morphology: (units unknown) (unknown) (unknown) (no date) (unknown) (unknown) Encounter type : initial encounter Laterality: right Qualified Code(s): S50.311A (units unknown) (unknown) (unknown) (no date) (unknown) (unknown) Encounter type : initial encounter Qualified Code(s): W19.XXXA - Unspecified (units unknown) (unknown) (unknown) (no date) (unknown) (unknown) Exam documente d above, pertinent findings include: (units unknown) (unknown) (unknown) (no date) (unknown) (unknown) Exam (units unknown) (unknown) (unknown) (no date) (unknown) (unknown) Extremities: Significant pain and swelling left knee, unable to straighten leg. (units unknown) (unknown) (unknown) (no date) (unknown) (unknown) Fall (units unknown) (unknown) (unknown) (no date) (unknown) (unknown) Full and symme trical air movement (units unknown) (unknown) (unknown) (no date) (unknown) (unknown) General (units unknown) (unknown) (unknown) (no date) (unknown) (unknown) General: In ob vious pain secondary to knee injury but able to participate with (units unknown) (unknown) (unknown) (no date) (unknown) (unknown) HEENT: Moist m ucous membranes, normal sclera with reactive pupils, no obvious (units unknown) (unknown) (unknown) (no date) (unknown) (unknown) HPI - Fall (units unknown) (unknown) (unknown) (no date) (unknown) (unknown) HPI Narrative: (unit s unknown) (unknown) (unknown) (no date) (unknown) (unknown) History of Pre sent Illness (units unknown) (unknown) (unknown) (no date) (unknown) (unknown) History of stroke (u nits unknown) (unknown) (unknown) (no date) (unknown) (unknown) Home Medications (un its unknown) (unknown) (unknown) (no date) (unknown) (unknown) Hydromorphone HCl (Hydromorphone 0.5 Mg Inj) 0.5 mg IV Q15MIN PRN (units unknown) (unknown) (unknown) (no date) (unknown) (unknown) If you find th at you are getting worse or develop any new symptoms, please feel (units unknown) (unknown) (unknown) (no date) (unknown) (unknown) Imaging studie s independently reviewed: (units unknown) (unknown) (unknown) (no date) (unknown) (unknown) Independently reviewed EKG as above (units unknown) (unknown) (unknown) (no date) (unknown) (unknown) Initial Vital Signs (units unknown) (unknown) (unknown) (no date) (unknown) (unknown) Initial Vital Signs: (units unknown) (unknown) (unknown) (no date) (unknown) (unknown) Instructions: DI for Patella Fracture (units unknown) (unknown) (unknown) (no date) (unknown) (unknown) [address] [address] (units unknown) (unknown) (unknown) (no date) (unknown) (unknown) Lab Data (units unknown) (unknown) (unknown) (no date) (unknown) (unknown) Lab Results (units unknown) (unknown) (unknown) (no date) (unknown) (unknown) Lab Test resul ts independently reviewed as above. Pertinent findings: (units unknown) (unknown) (unknown) (no date) (unknown) (unknown) Labs: (units unknown) (unknown) (unknown) (no date) (unknown) (unknown) Last Admin: 18:58 Dose: 0.5 mg (units unknown) (unknown) (unknown) (no date) (unknown) (unknown) MDM - Fall (units unknown) (unknown) (unknown) (no date) (unknown) (unknown) MDM Narrative (units unknown) (unknown) (unknown) (no date) (unknown) (unknown) Medical Histor y (Updated 07/05/22 @ 19:43 by Funmi Guerrero MD) (units unknown) (unknown) (unknown) (no date) (unknown) (unknown) Medical decisi on making narrative: (units unknown) (unknown) (unknown) (no date) (unknown) (unknown) Medication Instructions Recorded Confirmed (units unknown) (unknown) (unknown) (no date) (unknown) (unknown) Medication Instructions Recorded (units unknown) (unknown) (unknown) (no date) (unknown) (unknown) Mode of arrival: EMS (units unknown) (unknown) (unknown) (no date) (unknown) (unknown) Narrative: (units unknown) (unknown) (unknown) (no date) (unknown) (unknown) Neck: No signi ficant midline tenderness mild bilateral trapezius muscle (units unknown) (unknown) (unknown) (no date) (unknown) (unknown) Neurologic: Gr ossly neurologically intact with no obvious asymmetries or (units unknown) (unknown) (unknown) (no date) (unknown) (unknown) New (units unknown) (unknown) (unknown) (no date) (unknown) (unknown) No Action (units unknown) (unknown) (unknown) (no date) (unknown) (unknown) No ankle or fo ot abnormalities. Question of hip pain. Upper extremities are (units unknown) (unknown) (unknown) (no date) (unknown) (unknown) Ordered: (units unknown) (unknown) (unknown) (no date) (unknown) (unknown) Orders (units unknown) (unknown) (unknown) (no date) (unknown) (unknown) Oxygen Deliver y Method Room Air (units unknown) (unknown) (unknown) (no date) (unknown) (unknown) Oxygen Deliver y Method (units unknown) (unknown) (unknown) (no date) (unknown) (unknown) PAIN (units unknown) (unknown) (unknown) (no date) (unknown) (unknown) PRN Reason: Pain, (u nits unknown) (unknown) (unknown) (no date) (unknown) (unknown) Patellar fracture (u nits unknown) (unknown) (unknown) (no date) (unknown) (unknown) Patient Dispos ition: Home (units unknown) (unknown) (unknown) (no date) (unknown) (unknown) Patient History (uni ts unknown) (unknown) (unknown) (no date) (unknown) (unknown) Patient notes that they are having difficulty paying for insulin (units unknown) (unknown) (unknown) (no date) (unknown) (unknown) Patient: Anila Sanz MR#: [id number] (units unknown) (unknown) (unknown) (no date) (unknown) (unknown) Pelvis: Minor tenderness with compression on the anterior iliac crests more on (units unknown) (unknown) (unknown) (no date) (unknown) (unknown) Percocet with a 400 mg of ibuprofen. If you are having continued nausea you can (units unknown) (unknown) (unknown) (no date) (unknown) (unknown) Please keep yo ur leg in the knee immobilizer, I think this will help with both (units unknown) (unknown) (unknown) (no date) (unknown) (unknown) Prescriptions: (unit s unknown) (unknown) (unknown) (no date) (unknown) (unknown) Previous Rx's (units unknown) (unknown) (unknown) (no date) (unknown) (unknown) Psych: [place] t[place], appropriate insight and affect (units unknown) (unknown) (unknown) (no date) (unknown) (unknown) Pulse Oximetry 97 07/05/22 16:23 (units unknown) (unknown) (unknown) (no date) (unknown) (unknown) Pulse Oximetry 97 95 (units unknown) (unknown) (unknown) (no date) (unknown) (unknown) Pulse Oximetry 97 99 (units unknown) (unknown) (unknown) (no date) (unknown) (unknown) Pulse Oximetry 98 97 (units unknown) (unknown) (unknown) (no date) (unknown) (unknown) Pulse Oximetry 99 (u nits unknown) (unknown) (unknown) (no date) (unknown) (unknown) Pulse Rate 70 07/05/22 16:23 (units unknown) (unknown) (unknown) (no date) (unknown) (unknown) Pulse Rate 71 (units unknown) (unknown) (unknown) (no date) (unknown) (unknown) Pulse Rate 73 72 (un its unknown) (unknown) (unknown) (no date) (unknown) (unknown) Pulse Rate 74 70 (un its unknown) (unknown) (unknown) (no date) (unknown) (unknown) Pulse Rate 74 72 (un its unknown) (unknown) (unknown) (no date) (unknown) (unknown) Pulse Rate 74 77 (un its unknown) (unknown) (unknown) (no date) (unknown) (unknown) Qualifiers: (units unknown) (unknown) (unknown) (no date) (unknown) (unknown) Questions are answered and patient is safe for discharge home (units unknown) (unknown) (unknown) (no date) (unknown) (unknown) Referrals: (units unknown) (unknown) (unknown) (no date) (unknown) (unknown) Related Data (units unknown) (unknown) (unknown) (no date) (unknown) (unknown) Remainder of complete review of systems is otherwise unremarkable except for (units unknown) (unknown) (unknown) (no date) (unknown) (unknown) Respiratory Rate 22 (units unknown) (unknown) (unknown) (no date) (unknown) (unknown) Respiratory Rate (un its unknown) (unknown) (unknown) (no date) (unknown) (unknown) Respiratory: L ungs are clear to auscultation, no wheezing no rales no rhonchi. (units unknown) (unknown) (unknown) (no date) (unknown) (unknown) Review of Systems (u nits unknown) (unknown) (unknown) (no date) (unknown) (unknown) S82.042A - Dis placed comminuted fracture of left patella, initial encounter for (units unknown) (unknown) (unknown) (no date) (unknown) (unknown) SARS-CoV-2 (PC R) Negative (Negative) (units unknown) (unknown) (unknown) (no date) (unknown) (unknown) Severe left kn ee pain unable to straighten swelling over the patella, injury so (units unknown) (unknown) (unknown) (no date) (unknown) (unknown) Signed By: (units unknown) (unknown) (unknown) (no date) (unknown) (unknown) Skin: Warm and dry, minor abrasion to the right elbow (units unknown) (unknown) (unknown) (no date) (unknown) (unknown) Smoking Status : Former smoker (units unknown) (unknown) (unknown) (no date) (unknown) (unknown) Social History (units unknown) (unknown) (unknown) (no date) (unknown) (unknown) Social determi nants of health that may influence the patients condition: (units unknown) (unknown) (unknown) (no date) (unknown) (unknown) Source: patien t, family and EMS (units unknown) (unknown) (unknown) (no date) (unknown) (unknown) Stand Alone Fo tanya: Patient Portal/API (units unknown) (unknown) (unknown) (no date) (unknown) (unknown) Stated Complai nt: Fall, frax patella (units unknown) (unknown) (unknown) (no date) (unknown) (unknown) Substance Use Type: does not use (units unknown) (unknown) (unknown) (no date) (unknown) (unknown) Temperature 98.1 F ( units unknown) (unknown) (unknown) (no date) (unknown) (unknown) Temperature (units unknown) (unknown) (unknown) (no date) (unknown) (unknown) Thank you for coming in today (units unknown) (unknown) (unknown) (no date) (unknown) (unknown) Time Seen by Provider: 07/05/22 17:00 (units unknown) (unknown) (unknown) (no date) (unknown) (unknown) Treatments: Wi th adequate pain control patient was able to fully extend her (units unknown) (unknown) (unknown) (no date) (unknown) (unknown) Type 2 diabete s mellitus (units unknown) (unknown) (unknown) (no date) (unknown) (unknown) Using 400 mg o f ibuprofen (2 [id number] pills) and 1 Tylenol every 6 (units unknown) (unknown) (unknown) (no date) (unknown) (unknown) Vital Signs - 8 hr ( units unknown) (unknown) (unknown) (no date) (unknown) (unknown) Vital Signs (units unknown) (unknown) (unknown) (no date) (unknown) (unknown) Vital signs: (units unknown) (unknown) (unknown) (no date) (unknown) (unknown) Will be given instructions to follow-up with Dr. Calvillo as an outpatient. (units unknown) (unknown) (unknown) (no date) (unknown) (unknown) X-ray of the shaquille sousa shows Transverse mid patellar fracture with distraction of the (units unknown) (unknown) (unknown) (no date) (unknown) (unknown) XR hip w pel i f done LT 2V Stat (units unknown) (unknown) (unknown) (no date) (unknown) (unknown) XR knee LT 3V Stat ( units unknown) (unknown) (unknown) (no date) (unknown) (unknown) You did break your kneecap but it does not look like you significantly injured (units unknown) (unknown) (unknown) (no date) (unknown) (unknown) You will need to contact [facility] on Friday to follow-up (units unknown) (unknown) (unknown) (no date) (unknown) (unknown) a walker. (units unknown) (unknown) (unknown) (no date) (unknown) (unknown) abnormalities (units unknown) (unknown) (unknown) (no date) (unknown) (unknown) acetaminophen 325 MG tablet (units unknown) (unknown) (unknown) (no date) (unknown) (unknown) acetaminophen 325 mg tablet 650 mg PO PRN ##0 12/20/09 (units unknown) (unknown) (unknown) (no date) (unknown) (unknown) alcohol intake frequency: other (units unknown) (unknown) (unknown) (no date) (unknown) (unknown) anything else. (unit s unknown) (unknown) (unknown) (no date) (unknown) (unknown) chronic pain , opioid or alcohol use disorder. (units unknown) (unknown) (unknown) (no date) (unknown) (unknown) closed fracture (uni ts unknown) (unknown) (unknown) (no date) (unknown) (unknown) codeine [CODEI NE] AdvReac Intermediate CRAMPING Verified 08/25/18 23:11 (units unknown) (unknown) (unknown) (no date) (unknown) (unknown) comminuted Fra cture alignment: displaced Laterality: left Qualified Code(s): (units unknown) (unknown) (unknown) (no date) (unknown) (unknown) continuing to vomit. She does feel that she will be able to manage at home. 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 (units unknown) (unknown) (unknown) (no date) (unknown) (unknown) free to return to the emergency department for further evaluation. (units unknown) (unknown) (unknown) (no date) (unknown) (unknown) hours can be v savannah helpful in controlling pain. For severe pain you can use 1 (units unknown) (unknown) (unknown) (no date) (unknown) (unknown) hydrocodone 5 mg-acetaminophen 325 1 tab PO Q4HP PRN #20 tabs 05/30/17 (units unknown) (unknown) (unknown) (no date) (unknown) (unknown) hydrocodone-ac etamin ophen [[place]] 5 MG/325 MG tablet (units unknown) (unknown) (unknown) (no date) (unknown) (unknown) immobilizer, w alker and nausea medicine as the pain is significant enough she is (units unknown) (unknown) (unknown) (no date) (unknown) (unknown) immobilizer. W ill discharge her home with pain medicine recommendations, knee (units unknown) (unknown) (unknown) (no date) (unknown) (unknown) knee and be pl aced in a knee immobilizer and is actually a bit more comfortable (units unknown) (unknown) (unknown) (no date) (unknown) (unknown) knee pain. Rig ht side is unremarkable (units unknown) (unknown) (unknown) (no date) (unknown) (unknown) lives independ ently: Yes (units unknown) (unknown) (unknown) (no date) (unknown) (unknown) loss of consciousness) minor contusion to the right elbow and somehow ended up (units unknown) (unknown) (unknown) (no date) (unknown) (unknown) lumbar spine (units unknown) (unknown) (unknown) (no date) (unknown) (unknown) marital status : (units unknown) (unknown) (unknown) (no date) (unknown) (unknown) medicated prio r to exam (units unknown) (unknown) (unknown) (no date) (unknown) (unknown) medicine and t he pain medication. (units unknown) (unknown) (unknown) (no date) (unknown) (unknown) mg tablet ([place]) (u nits unknown) (unknown) (unknown) (no date) (unknown) (unknown) mg tablet (units unknown) (unknown) (unknown) (no date) (unknown) (unknown) need walker or crutches appropriate pain control and follow-up in clinic to call (units unknown) (unknown) (unknown) (no date) (unknown) (unknown) of fentanyl an d is still having fairly significant pain. She has no history of (units unknown) (unknown) (unknown) (no date) (unknown) (unknown) on Friday. Kristian l likely need operative intervention and this will not be (units unknown) (unknown) (unknown) (no date) (unknown) (unknown) ondansetron 4 mg disintegrating 4 mg PO Q8H PRN nausea and 07/05/22 (units unknown) (unknown) (unknown) (no date) (unknown) (unknown) ondansetron 4 mg tablet,disintegratin g (units unknown) (unknown) (unknown) (no date) (unknown) (unknown) oxycodone-acet aminop hen 5 mg-325 1 tab PO Q6H PRN pain #20 tabs 07/05/22 (units unknown) (unknown) (unknown) (no date) (unknown) (unknown) oxycodone-acet aminop hen 5-325 mg tablet (units unknown) (unknown) (unknown) (no date) (unknown) (unknown) she is unable to straighten her knee a posterior splint for comfort. She will (units unknown) (unknown) (unknown) (no date) (unknown) (unknown) stability so y ou do not fall again. (units unknown) (unknown) (unknown) (no date) (unknown) (unknown) tablet vomitin g #10 tabs (units unknown) (unknown) (unknown) (no date) (unknown) (unknown) tenderness to her head and no clinical skull fracture (units unknown) (unknown) (unknown) (no date) (unknown) (unknown) tenderness, sh e has significant distracting injuries and has been significantly (units unknown) (unknown) (unknown) (no date) (unknown) (unknown) that included in the HPI. (units unknown) (unknown) (unknown) (no date) (unknown) (unknown) the fall (units unknown) (unknown) (unknown) (no date) (unknown) (unknown) the left. Conc robyn for left hip tenderness unable to mobilize hip due to severe (units unknown) (unknown) (unknown) (no date) (unknown) (unknown) the pain and t he swelling. Make sure that you are using the walker for (units unknown) (unknown) (unknown) (no date) (unknown) (unknown) the patella un able to move and significant pain. 911 was called and she was (units unknown) (unknown) (unknown) (no date) (unknown) (unknown) the right side of her head she is (she is not on blood thinners, there was no (units unknown) (unknown) (unknown) (no date) (unknown) (unknown) tonight. (units unknown) (unknown) (unknown) (no date) (unknown) (unknown) transported to the emergency department. She received 5 mg of Versed and 100 mg (units unknown) (unknown) (unknown) (no date) (unknown) (unknown) trauma, pelvic trauma no evidence of acute stroke or alternate explanation for (units unknown) (unknown) (unknown) (no date) (unknown) (unknown) trauma/injury (units unknown) (unknown) (unknown) (no date) (unknown) (unknown) unremarkable w ith full non painful range of motion at the shoulders elbows and (units unknown) (unknown) (unknown) (no date) (unknown) (unknown) use the Zofran . I have given you written prescriptions for both the nausea (units unknown) (unknown) (unknown) (no date) (unknown) (unknown) weeks. The off ice phone number is [phone]. Please let them know that you (units unknown) (unknown) (unknown) (no date) (unknown) (unknown) were seen in t emergency department and need follow-up (units unknown) (unknown) (unknown) (no date) (unknown) (unknown) wet floor. She remembers landing mostly on her right side, small contusion to (units unknown) (unknown) (unknown) (no date) (unknown) (unknown) with Dr. Calvillo regarding the knee fracture. You may need surgery in the coming (units unknown) (unknown) (unknown) (no date) (unknown) (unknown) with a signifi cant contusion to the left knee. Large amount of swelling over (units unknown) (unknown) (unknown) (no date) (unknown) (unknown) with this. She is unable to manipulate crutches so she is discharged home with (units unknown) (unknown) (unknown) (no date) (unknown) (unknown) wrists bilaterally ( units unknown) (unknown) Result panel 15 (unknown) (no date) (unknown) (unknown) (no value) (units unknown) (unknown) (unknown) (no date) (unknown) (unknown) [id number] (units unknown) (unknown) (unknown) (no date) (unknown) (unknown) 07/12/22 1119 (units unknown) (unknown) (unknown) (no date) (unknown) (unknown) Age/Sex: 61 / F (uni ts unknown) (unknown) (unknown) (no date) (unknown) (unknown) Changes to H+P: No ( units unknown) (unknown) (unknown) (no date) (unknown) (unknown) : 3 Acct:[id number] (units unknown) (unknown) (unknown) (no date) (unknown) (unknown) Date of Servic e: 07/12/22 (units unknown) (unknown) (unknown) (no date) (unknown) (unknown) History + Phys ical reviewed/Exam performed by Physician: Yes (units unknown) (unknown) (unknown) (no date) (unknown) (unknown) Interval Note (units unknown) (unknown) (unknown) (no date) (unknown) (unknown) [address] [address] (units unknown) (unknown) (unknown) (no date) (unknown) (unknown) Patient: Anila Sanz MR#: [id number] (units unknown) (unknown) (unknown) (no date) (unknown) (unknown) Pre-operative Note ( units unknown) (unknown) (unknown) (no date) (unknown) (unknown) Provider: Amos Calvillo MD (units unknown) (unknown) (unknown) (no date) (unknown) (unknown) Signed By:<Electronically signed by Amos Calvillo MD> (units unknown) (unknown) Result panel 16 (unknown) (no date) (unknown) (unknown) (no value) (units unknown) (unknown) (unknown) (no date) (unknown) (unknown) [id number] (units unknown) (unknown) (unknown) (no date) (unknown) (unknown) 07/12/22 1421 (units unknown) (unknown) (unknown) (no date) (unknown) (unknown) 20.062 in K-wi res and a 20 gauge cerclage wire (units unknown) (unknown) (unknown) (no date) (unknown) (unknown) 250 mmHg. An approximately 10 cm incision was created centered over the (units unknown) (unknown) (unknown) (no date) (unknown) (unknown) Age/Sex: 61 / F (uni ts unknown) (unknown) (unknown) (no date) (unknown) (unknown) Anesthesia Typ e: General and Local (units unknown) (unknown) (unknown) (no date) (unknown) (unknown) Applied: implant(s) (units unknown) (unknown) (unknown) (no date) (unknown) (unknown) Blood products transfused: none (units unknown) (unknown) (unknown) (no date) (unknown) (unknown) ChloraPrep in the usual fashion draped through sterile drapes. The leg was (units unknown) (unknown) (unknown) (no date) (unknown) (unknown) Click Yes if Unassisted: Yes (units unknown) (unknown) (unknown) (no date) (unknown) (unknown) Closure Type: primary (units unknown) (unknown) (unknown) (no date) (unknown) (unknown) Complications: none (units unknown) (unknown) (unknown) (no date) (unknown) (unknown) Condition: stable (u nits unknown) (unknown) (unknown) (no date) (unknown) (unknown) : 3 Acct:[id number] (units unknown) (unknown) (unknown) (no date) (unknown) (unknown) Date of Servic e: 07/12/22 (units unknown) (unknown) (unknown) (no date) (unknown) (unknown) Date of proced ure: 07/12/22 (units unknown) (unknown) (unknown) (no date) (unknown) (unknown) Disposition: PACU (u nits unknown) (unknown) (unknown) (no date) (unknown) (unknown) Estimated Bloo d Loss (mL): 25 (units unknown) (unknown) (unknown) (no date) (unknown) (unknown) Findings: (units unknown) (unknown) (unknown) (no date) (unknown) (unknown) Indications: (units unknown) (unknown) (unknown) (no date) (unknown) (unknown) [address] [address] (units unknown) (unknown) (unknown) (no date) (unknown) (unknown) Open reduction internal fixation of left patella fracture (units unknown) (unknown) (unknown) (no date) (unknown) (unknown) Operative Date/Time/Diagnoses (units unknown) (unknown) (unknown) (no date) (unknown) (unknown) Operative Note (unit s unknown) (unknown) (unknown) (no date) (unknown) (unknown) Operative Notes (uni ts unknown) (unknown) (unknown) (no date) (unknown) (unknown) Patient: Anila Sanz MR#: [id number] (units unknown) (unknown) (unknown) (no date) (unknown) (unknown) Plan for aftercare: (units unknown) (unknown) (unknown) (no date) (unknown) (unknown) Post-op diagno sis: same (With additional comminution not seen on preoperative (units unknown) (unknown) (unknown) (no date) (unknown) (unknown) Post-operative (unit s unknown) (unknown) (unknown) (no date) (unknown) (unknown) Pre-op diagnos is: Closed, displaced, transverse left patellar fracture (units unknown) (unknown) (unknown) (no date) (unknown) (unknown) Procedure + Clinicians (units unknown) (unknown) (unknown) (no date) (unknown) (unknown) Procedure in detail: (units unknown) (unknown) (unknown) (no date) (unknown) (unknown) Procedure: (units unknown) (unknown) (unknown) (no date) (unknown) (unknown) Prosthetic dev ices, grafts, tissues, transplants, or devices: (units unknown) (unknown) (unknown) (no date) (unknown) (unknown) Provider: Amos Calvillo MD (units unknown) (unknown) (unknown) (no date) (unknown) (unknown) Same procedure as scheduled: Yes (units unknown) (unknown) (unknown) (no date) (unknown) (unknown) Signed By:<Electronically signed by Amos Calvillo MD> (units unknown) (unknown) (unknown) (no date) (unknown) (unknown) Specimen(s): n one sent (units unknown) (unknown) (unknown) (no date) (unknown) (unknown) Surgeon: Denise Calvillo (units unknown) (unknown) (unknown) (no date) (unknown) (unknown) The patient is a 61-year-old woman who fell last weekend sustaining the above (units unknown) (unknown) (unknown) (no date) (unknown) (unknown) The patient wa s seen in the preoperative area where she identified her left knee (units unknown) (unknown) (unknown) (no date) (unknown) (unknown) The patient wi ll be discharged today. She will be allowed to use her knee (units unknown) (unknown) (unknown) (no date) (unknown) (unknown) Time of proced ure: 14:10 (units unknown) (unknown) (unknown) (no date) (unknown) (unknown) Tourniquet amber e (min): 64 (units unknown) (unknown) (unknown) (no date) (unknown) (unknown) What appeared to be a transverse fracture on the initial radiographs turned out (units unknown) (unknown) (unknown) (no date) (unknown) (unknown) Xeroform, ster ile 4x4s, an ABD and sterile cast padding followed by an Casey wrap (units unknown) (unknown) (unknown) (no date) (unknown) (unknown) after repeatin g the reduction and removing all the prior hardware. This (units unknown) (unknown) (unknown) (no date) (unknown) (unknown) and a knee immobilizer were applied. The patient was then awakened from her (units unknown) (unknown) (unknown) (no date) (unknown) (unknown) and tightened with twist ties on both the medial and lateral sides. This (units unknown) (unknown) (unknown) (no date) (unknown) (unknown) anesthetic and taken to recovery in good condition having tolerated the (units unknown) (unknown) (unknown) (no date) (unknown) (unknown) as the operati ve site and this was marked with my initials. She was taken to (units unknown) (unknown) (unknown) (no date) (unknown) (unknown) at least 3 fragments. The 2 major fragments were reduced with a pointed (units unknown) (unknown) (unknown) (no date) (unknown) (unknown) cerclage stitc h of #2 FiberWire was then placed. This held 1 of the larger (units unknown) (unknown) (unknown) (no date) (unknown) (unknown) changed to K-w ires with a cerclage wire. The two 0.062 in K-wires were placed (units unknown) (unknown) (unknown) (no date) (unknown) (unknown) comminuted fra gments in place. The rent in the retinaculum medially and (units unknown) (unknown) (unknown) (no date) (unknown) (unknown) displaced. Thi s was was moved removed and replaced and again comminution was (units unknown) (unknown) (unknown) (no date) (unknown) (unknown) elevated and exsanguinated with an Esmarch bandage, the tourniquet inflated to (units unknown) (unknown) (unknown) (no date) (unknown) (unknown) evident so I abandoned the idea of using the cannulated screws and instead (units unknown) (unknown) (unknown) (no date) (unknown) (unknown) evident when s crews were placed and the fragments displaced. (units unknown) (unknown) (unknown) (no date) (unknown) (unknown) fluoroscopy. A 20 gauge cerclage wire was placed in a [id number] fashion (units unknown) (unknown) (unknown) (no date) (unknown) (unknown) immobilizer to weight bear as tolerated in full extension for 2 weeks. She will (units unknown) (unknown) (unknown) (no date) (unknown) (unknown) lateral view w ith fluoroscopy. The guidewires for the cannulated screws were (units unknown) (unknown) (unknown) (no date) (unknown) (unknown) laterally was closed with 0 Vicryl. The wound was copiously irrigated. The (units unknown) (unknown) (unknown) (no date) (unknown) (unknown) noted fracture . She is agreed to proceed with surgery after discussion the (units unknown) (unknown) (unknown) (no date) (unknown) (unknown) paralysis and . (units unknown) (unknown) (unknown) (no date) (unknown) (unknown) patella. Hemat shameka was evacuated. The patella was inspected and found to be in (units unknown) (unknown) (unknown) (no date) (unknown) (unknown) performed. The left leg was prepared from the toes to the tourniquet with (units unknown) (unknown) (unknown) (no date) (unknown) (unknown) placed about h er proximal left thigh. A full procedural pause or ?time-out? was (units unknown) (unknown) (unknown) (no date) (unknown) (unknown) placed. The 1s t screw went smoothly and helped maintain reduction, the 2nd (units unknown) (unknown) (unknown) (no date) (unknown) (unknown) procedure well. (uni ts unknown) (unknown) (unknown) (no date) (unknown) (unknown) provided adequ ate compression of the fracture. The K-wires were bent and the (units unknown) (unknown) (unknown) (no date) (unknown) (unknown) provided satisfactory alignment of the fracture, which was confirmed on (units unknown) (unknown) (unknown) (no date) (unknown) (unknown) proximal ends buried in the quadriceps tendon over the wire. The distal ends (units unknown) (unknown) (unknown) (no date) (unknown) (unknown) radiographs) (units unknown) (unknown) (unknown) (no date) (unknown) (unknown) replacement an d/or hardware removal, stiffness, infection, nerve damage, deep (units unknown) (unknown) (unknown) (no date) (unknown) (unknown) risks benefits and alternatives. Risks discussed included but were not limited (units unknown) (unknown) (unknown) (no date) (unknown) (unknown) screw showed t hat there was additional comminution in the distal fragment, which (units unknown) (unknown) (unknown) (no date) (unknown) (unknown) subcutaneous l cathy and pat for skin. The subcutaneous tissues were injected (units unknown) (unknown) (unknown) (no date) (unknown) (unknown) tenaculum clam p. The reduction was confirmed as being satisfactory on the (units unknown) (unknown) (unknown) (no date) (unknown) (unknown) the operating room and placed on the operating room table in a supine position (units unknown) (unknown) (unknown) (no date) (unknown) (unknown) then be given a hinged knee brace and advanced by 30? of motion every 2 weeks (units unknown) (unknown) (unknown) (no date) (unknown) (unknown) to discontinue the brace. (units unknown) (unknown) (unknown) (no date) (unknown) (unknown) to have signif icant comminution of the distal pole fragment. This became (units unknown) (unknown) (unknown) (no date) (unknown) (unknown) to: Failure to improve, need for further surgery including possible total knee (units unknown) (unknown) (unknown) (no date) (unknown) (unknown) tourniquet was released with total tourniquet time of 64 minutes. Hemostasis (units unknown) (unknown) (unknown) (no date) (unknown) (unknown) until she is 0 -90. At that point if radiographs show healing we should be able (units unknown) (unknown) (unknown) (no date) (unknown) (unknown) venous thrombo sis, pulmonary embolism, stroke, myocardial infarction, permanent (units unknown) (unknown) (unknown) (no date) (unknown) (unknown) was obtained w [facility]. Closure was obtained with 3-0 Vicryl the (units unknown) (unknown) (unknown) (no date) (unknown) (unknown) were bent late rally to minimize irritation of the subcutaneous tissues. A (units unknown) (unknown) (unknown) (no date) (unknown) (unknown) where she unde rwent the induction of a general anesthetic. A tourniquet was (units unknown) (unknown) (unknown) (no date) (unknown) (unknown) with 20 mL 0.5 % Marcaine with epinephrine for postoperative pain control. (units unknown) (unknown) Social History date description facility 2022-07-05 00:00 Ex-smoker (finding) [facility] 2022-07-12 00:00 Ex-smoker (finding) [facility] Vital Signs date measurement value units 2022-07-05 00:00 BMI 34.1 kg/m2 2022-07-05 00:00 BP_diastolic 73 mmHg 2022-07-05 00:00 BP_systolic 126 mmHg 2022-07-05 00:00 heart_rate 78 /min 2022-07-05 00:00 height_metric 162.56 cm 2022-07-05 00:00 height_standard 64 in 2022-07-05 00:00 o2_saturation 95 % 2022-07-05 00:00 respiration_rate 20 /min 2022-07-05 00:00 temperature_metric 36.72 C 2022-07-05 00:00 temperature_standard 98.1 F 2022-07-05 00:00 weight_metric 90.26 kg 2022-07-05 00:00 weight_standard 198.99 lb 2022-07-12 00:00 BMI 35.2 kg/m2 2022-07-12 00:00 BP_diastolic 78 mmHg 2022-07-12 00:00 BP_systolic 149 mmHg 2022-07-12 00:00 heart_rate 104 /min 2022-07-12 00:00 height_metric 162.56 cm 2022-07-12 00:00 height_standard 64 in 2022-07-12 00:00 o2_saturation 95 % 2022-07-12 00:00 respiration_rate 14 /min 2022-07-12 00:00 temperature_metric 36.61 C 2022-07-12 00:00 temperature_standard 97.9 F 2022-07-12 00:00 weight_metric 92.98 kg 2022-07-12 00:00 weight_standard 204.99 lb
--- NOTE | 2022-08-05 18:48 | CT Report ---
PROCEDURE: HEAD WO INDICATIONS: fall, head injury TECHNIQUE: Noncontrast 4.5 mm thick angled axial sections acquired from the foramen magnum to the vertex. For r adiation dose reduction, the following was used: automated exposure control, adjustment of mA and/or kV according to patient size. COMPARISON: None. FINDINGS: Image quality: Excellent. CSF spaces: Basal cisterns are patent. No extra-axial fluid collections. Ventricles are normal in size and shape. Brain: No midline shift. No intracranial masses or hemorrhage. Knott-white matter interface is norm al. Skull and face: Calvarium and visualized facial bones are intact, without suspicious lesions. Sinuses: Visualized sinuses and mastoids are clear. IMPRESSION: 1. No CT evidence of acute trauma. 2. No significant soft tissue injury or underlying fracture. Reviewed by: Anahy Rodriguez MD on 08/05/2022 5:46 PM [id number] Approved by: Anahy Rodriguez MD on 08/05/2022 5:46 PM [facility] Station ID: [id number]
--- NOTE | 2022-08-05 18:54 | CT Report ---
PROCEDURE: MAXILLOFACIAL WO INDICATIONS: fall, facial injuries TECHNIQUE: Noncontrast 1.5 mm thick axial images acquired from the mandible through the frontal sinuses, with co jeffery and sagittal reformatting. For radiation dose reduction, the following was used: automated ex posure control, adjustment of mA and/or kV according to patient size. COMPARISON: None. FINDINGS: Image quality: Excellent. Bones and teeth: Orbital chacon are intact. Sinus chacon show no fracture or deformity. Nasal bones and septum are intact. Visualized portions of the mandible demonstrate no fractures or subluxation. Zygomatic arches are intact. Pterygoid plates are intact. Visualized portions of the skull base an d auditory canals are intact. Sinuses: Paranasal sinuses are aerated, without fluid levels, mucosal thickening, or mucoceles. Mas toid air cells are aerated. Soft tissues: Soft tissue laceration and injury along the left anterior mandible region without under lying fracture or radiodense debris. Elsewhere, no suspicious soft tissue mass or adenopathy. Orbits and globes appear normal. Vascular: Visualized vascular structures appear normal in the absence of contrast. Bony vascular fo ramina and canals are intact. IMPRESSION: 1. No facial bone fractures. 2. Left anterior submandibular soft tissue injury without underlying debris. Reviewed by: Anahy Rodriguez MD on 08/05/2022 5:52 PM [facility] Approved by: Anahy Rodriguez MD on 08/05/2022 5:52 PM [facility] Station ID: [id number]
[2022-08-05] MEDS ORDERED: ONDANSETRON 4 MG/2 ML VIAL IVP STA (18:55)
--- NOTE | 2022-08-05 18:56 | CT Report ---
PROCEDURE: CERVICAL SPINE WO INDICATIONS: fall, neck pain TECHNIQUE: Noncontrast 3 mm thick sections acquired from the skull base to the T4 level. Sagittal and coronal r eformats were then constructed. For radiation dose reduction, the following was used: automated exp osure control, adjustment of mA and/or kV according to patient size. COMPARISON: None. FINDINGS: Image quality: Excellent. Bones: No fractures or dislocations. Visualized superior ribs are intact. Soft tissues: Prevertebral soft tissues are normal in thickness. No paravertebral hematomas. No ap ical pneumothoraces. IMPRESSION: 1. No CT evidence of acute cervical spine injury. Reviewed by: Anahy Rodriguez MD on 08/05/2022 5:54 PM [email or web address] Approved by: Anahy Rodriguez MD on 08/05/2022 5:54 PM KHUSHBOO Station ID: [id number]
--- NOTE | 2022-08-05 19:04 | CT Report ---
PROCEDURE: CHEST WO INDICATIONS: fall, L rib pain TECHNIQUE: Noncontrast 1mm axial images were acquired from the pulmonary apices to the posterior costophrenic an gles. Axial 5 mm soft tissue kernel reconstructions were performed as well as 8 mm axial MIP and cor onal and sagittal 5 mm reformations. For radiation dose reduction, the following was used: automate d exposure control, adjustment of mA and/or kV according to patient size. COMPARISON: None FINDINGS: Image quality: Excellent. Lungs and pleura: No pneumothorax or pleural effusion. Minor patchy groundglass opacities at both rosanna g bases centrally. Part solid subpleural right middle lobe nodule measuring 5 mm, 4/165. No other con solidations or suspicious masses. Central and peripheral airways are patent. Mediastinum: Heart size is normal. No pericardial effusions. No mediastinal adenopathy by size criter ia. No large vessel abnormality. No anterior or posterior mediastinal mass or hematoma. Normal esopha perfecto without hiatal hernia. Chest wall and lower neck: The thyroid gland contains a few punctate calcifications in the right lobe . No axillary or supraclavicular adenopathy by size. Bones: No aggressive osseous abnormality. Upper Abdomen: Scattered curvilinear surgical clips along the anterior peritoneal surface. The visibl e solid abdominal organs appear otherwise normal. IMPRESSION: 1. No visible fractures. 2. Minor, nonspecific bibasilar groundglass opacities. Differential diagnosis is most likely gravitat ional, early infection/inflammation, much less likely contusion given minimal density and central loc ation. 3. No evidence of trauma to the mediastinum. Reviewed by: Anahy Rodriguez MD on 08/05/2022 6:03 PM [email or web address] Approved by: Anahy Rodriguez MD on 08/05/2022 6:03 PM KHUSHBOO Station ID: [id number]
[2022-08-05] MEDS ORDERED: PROMETHAZINE INJ 25 MG in SODIUM CHLORIDE 0.9% 50 ML IV STA (19:31)
[2022-08-05] MEDS ORDERED: LIDOCAINE 2% 10 ML MDV SUBQ ONE (19:31)
[2022-08-05] MEDS ORDERED: lidocaine 1% 20 ML MDV SUBQ STA (19:33)
[2022-08-05] MEDS ORDERED: PROMETHAZINE 25 MG/1 ML VIAL ONE (19:37)
[2022-08-05] MEDS ORDERED: INSULIN REGULAR HUMAN 300 UNIT/3 ML VIAL SUBQ STA (20:25)
[2022-08-05 20:36] LABS: ESTIMATED AVERAGE GLUCOSE 289 mg/dL (70-100); HEMOGLOBIN A1c% 11.7 % (4.27-6.07)
[2022-08-05] MEDS ORDERED: iohexoL-300 100 ML VIAL ONE (21:20)
[2022-08-05] MEDS ORDERED: HEPARIN 25000UNITS/500ML (D5W) 25,000 UNIT/500 ML BAG IV SCH (22:00)
--- NOTE | 2022-08-05 22:07 | CT Report ---
PROCEDURE: ANGIO CHEST W/WO INDICATIONS: dyspnea, syncope CONTRAST: Omni 300 100ml TECHNIQUE: After the administration of intravenous contrast, 2 mm axial images were acquired from the pulmonary apices to the posterior costophrenic angles during the arterial phase. In addition, 1 mm lung kernel and 5 mm soft tissue kernel reconstructions were performed. 3-dimensional coronal oblique maximum int ensity projection (MIP) reformats, 8 mm axial MIP, and 5 mm coronal and sagittal MPR reformats were t hen performed through the thorax. For radiation dose reduction, the following was used: automated exp osure control, adjustment of mA and/or kV according to patient size. COMPARISON: Noncontrast chest CT 08/05/2022 FINDINGS: Image quality: Excellent. Large vessels: Multiple filling defects seen within the right and left main pulmonary arteries at the bifurcation extending into the bilateral lobar arteries and multiple segmental branches with relativ aayush large clot burden. The main pulmonary artery measures up to 3.1 cm in diameter. The right ventric ular to left ventricular ratio is greater than 1. No significant reflux of contrast material into the hepatic veins. Lungs and pleura: No consolidation. No pleural effusions. No pneumothorax. 4 mm nodule again seen at the anterolateral right middle lobe (145/6). Mediastinum: Heart size is normal. No pericardial effusions. No mediastinal adenopathy by size criter ia. Chest wall and lower neck: Thyroid is unremarkable. No axillary or supraclavicular adenopathy by size . Bones: No aggressive osseous abnormality. Upper Abdomen: Unremarkable. IMPRESSION: 1.Acute saddle pulmonary embolus with thrombus in the bilateral main pulmonary arteries and extending throughout the visualized lobar arteries and multiple segmental arteries, with relatively large clot burden. 2.Increased RV: LV ratio and mildly enlarged main pulmonary artery may indicate right heart strain. R ecommend clinical correlation. Findings were reported to Rosalinda of the Emergency Department on 08/05/2022 at 9:58 PM. Reviewed by: Brennan Burroughs MD on 08/05/2022 10:05 PM PDT Approved by: Brennan Burroughs MD on 08/05/2022 10:05 PM PDT Station ID: [id number]
[2022-08-05 22:45] VITALS: BP 130/91
[2022-08-05 23:29] LABS: CORONAVIRUS 229E-RESP PCR NOT DETECTED; CORONAVIRUS HKU1-RESP PCR NOT DETECTED; CORONAVIRUS NL63-RESP PCR NOT DETECTED; CORONAVIRUS OC43-RESP PCR NOT DETECTED; SARS-CoV-2 -RESP PCR PANEL NOT DETECTED
[2022-08-05 23:30] LABS: B. PARAPERTUSSIS- RESP PCR PAN NOT DETECTED; B. PERTUSSIS- RESP PCR PANEL NOT DETECTED; C. PNEUMONIAE- RESP PCR PANEL NOT DETECTED; HUMAN METAPNEUMOVIRUS NOT DETECTED; INFLUENZA A- RESP PCR PANEL NOT DETECTED; INFLUENZA B - RESP PCR PANEL NOT DETECTED; M. PNEUMONIAE- RESP PCR PANEL NOT DETECTED; PARAINFLUENZA VIRUS 1 NOT DETECTED; PARAINFLUENZA VIRUS 2 NOT DETECTED; PARAINFLUENZA VIRUS 3 NOT DETECTED; PARAINFLUENZA VIRUS 4 NOT DETECTED; RHINOVIRUS/ENTEROVIRUS NOT DETECTED; RSV- RESP PCR PANEL NOT DETECTED
[2022-08-05] MEDS ORDERED: iohexoL-300 100 ML VIAL IVP ONE (23:42)
== END 2022-08-05 23:13 | disposition short-term general hospital (02) ==
LOC: EDUNIT# → ED 17:05
DX: I26.02 Saddle embolus of pulmonary artery with acute cor pulmonale (principal); S01.81XA Laceration without foreign body of other part of head, initial encounter; S01.511A Laceration without foreign body of lip, initial encounter; R55 Syncope and collapse; R09.02 Hypoxemia; W18.30XA Fall on same level, unspecified, initial encounter; Y92.009 Unspecified place in unspecified non-institutional (private) residence as the place of occurrence of the external cause; I10 Essential (primary) hypertension; E11.9 Type 2 diabetes mellitus without complications; Z20.822 Contact with and (suspected) exposure to COVID-19
CPT/HCPCS: 12013; 36415; 70450; 70486; 71250; 71275; 72125; 80053; 82009; 82803; 83036; 83690; 84484; 85025; 87633; 93005; 96361; 96365; 96375; 99284; 99285; J1815; J7040; Q9967

== ENCOUNTER 2022-08-05 23:05 | Outpatient (CLI) | payer MEDICARE, OTHER | END 2022-08-05 23:06 | disposition short-term general hospital (02) | LOC: EMS 23:05 | PROVIDERS: ATTEND Emergency Medicine | DX: I26.92 Saddle embolus of pulmonary artery without acute cor pulmonale (principal); R09.02 Hypoxemia; E11.65 Type 2 diabetes mellitus with hyperglycemia; R07.81 Pleurodynia; R77.8 Other specified abnormalities of plasma proteins | CPT/HCPCS: A0425; A0426 ==

== ENCOUNTER 2022-08-17 23:55 | Outpatient (CLI) | payer MEDICARE, OTHER | END 2022-08-17 23:59 | disposition critical access hospital (66) | LOC: EMS 23:55 | DX: R06.02 Shortness of breath (principal); R05.9 Cough, unspecified | CPT/HCPCS: A0425; A0429 ==

== ENCOUNTER 2022-08-18 00:13 | Emergency (ER) | payer MEDICARE, OTHER ==
[2022-08-18] MEDS ORDERED: BENZONATATE 100 MG CAPSULE PO STA (00:30)
--- OUTSIDE RECORDS SUMMARY | 2022-08-18 00:32 | EXTERNAL MEDICAL SUMMARY RPT | Continuity of Care Document ---
Author Name Unknown Address [address] [place] [address] Phone Organization [facility] Address [address] [place] [address] Phone Care Team Providers Care Treater Name Role Phone Unavailable Unavailable Unavailable Kristi Hood Unavailable Unavailable Allergies and Intolerances date description [facility] date description facility 2022-07-05 00:00 Ondansetron [facility] 2022-07-05 00:00 Oxycodone-Acetaminophen [facility] 2022-07-12 00:00 Oxycodone [facility] 2022-07-12 00:00 Ibuprofen [facility] 2022-07-12 00:00 Glimepiride [facility] 2022-07-12 00:00 Albuterol Sulfate [facility] 2022-07-12 00:00 Amlodipine [facility] 2022-07-12 00:00 Fluoxetine [facility] 2022-07-12 00:00 Metoprolol Succinate [facility] 2022-07-12 00:00 [facility] Problems date description facility 2022-07-05 00:00 Abrasion of elbow [facility] 2022-07-05 00:00 Fracture of patella [facility] 2022-07-05 00:00 Fall [facility] 2022-07-12 09:40 Displaced transverse fracture of left patella, initial [facility] 2022-07-12 10:10 Displaced transverse fracture of left patella, initial [facility] 2022-07-12 14:35 Displaced transverse fracture of left patella, initial [facility] 2022-07-12 18:04 Displaced transverse fracture of left patella, initial [facility] Procedures date description facility 2022-07-05 00:00 Computed tomography of head or brain without contrast [facility] 2022-07-05 00:00 XR knee LT 3V [facility] 2022-07-05 00:00 Computed tomography of cervical spine without contrast [facility] 2022-07-12 00:00 ORIF Patella Fracture (Left) Is [facility] 2022-07-05 00:00 Unilateral x-ray of hip, two views, with x-ray of pelvis [facility] Results/Labs test date author facility value unit interpretation Result panel 1 (unknown) (no date) (unknown) [facility] (no value) (units unknown) (unknown) Result panel 2 (unknown) (no date) (unknown) [facility] (no value) (units unknown) (unknown) Result panel 3 (unknown) (no date) (unknown) [facility] (no value) (units unknown) (unknown) Result panel 4 (unknown) (no date) (unknown) (unknown) (no value) (units unknown) (unknown) (unknown) (no date) (unknown) (unknown) [id number] (units unknown) (unknown) (unknown) (no date) (unknown) (unknown) 07/05/22 (units unknown) (unknown) (unknown) (no date) (unknown) (unknown) [address] [place] [address] (un its unknown) (unknown) (unknown) (no date) (unknown) (unknown) Accession Numb er: [id number] (units unknown) (unknown) (unknown) (no date) (unknown) (unknown) Age/Sex: 61 / F Date of Service: (units unknown) (unknown) (unknown) (no date) (unknown) (unknown) [place] [address] (units unknown) (unknown) (unknown) (no date) (unknown) (unknown) Approved by: Bruna Adams M.D. on 07/05/2022 at 17:06 (units unknown) (unknown) (unknown) (no date) (unknown) (unknown) Bones: There i s a transverse, distracted fracture involving the patella. (units unknown) (unknown) (unknown) (no date) (unknown) (unknown) COMPARISON: None. (u nits unknown) (unknown) (unknown) (no date) (unknown) (unknown) : 3 Acct:[id number] (units unknown) (unknown) (unknown) (no date) (unknown) [...] unknown) (unknown) (unknown) (no date) (unknown) (unknown) [facility] (uni ts unknown) (unknown) (unknown) (no date) [...] unknown) (unknown) (unknown) (no date) (unknown) (unknown) [id number] (units unknown) (unknown) (unknown) (no date) (unknown) [...] (unknown) (no date) (unknown) (unknown) Consult to [facility] - [facility] (units unknown) (unknown) (unknown) (no date) (unknown) (unknown) Course (units unknown) (unknown) (unknown) (no date) (unknown) (unknown) : 3 Acct:[id number] (units unknown) (unknown) (unknown) (no date) (unknown) [...] unknown) (unknown) (unknown) (no date) (unknown) (unknown) [address] [address] (units unknown) (unknown) (unknown) (no date) (unknown) [...] (no date) (unknown) (unknown) hydrocodone-ac etamin ophen [Dawson] 5 MG/325 MG tablet (units unknown) (unknown) (unknown) (no date) (unknown) (unknown) lives independ ently: Yes (units unknown) (unknown) (unknown) (no date) (unknown) (unknown) marital status : (units unknown) (unknown) (unknown) (no date) (unknown) (unknown) mg tablet (Dawson) (u nits unknown) (unknown) Result panel 6 (unknown) (no date) (unknown) (unknown) (no value) (units unknown) (unknown) (unknown) (no date) (unknown) (unknown) (e.g., CT, (units unknown) (unknown) (unknown) (no date) (unknown) (unknown) [id number] (units unknown) (unknown) (unknown) (no date) (unknown) (unknown) 07/05/22 (units unknown) (unknown) (unknown) (no date) (unknown) (unknown) [address] [place] [address] (un its unknown) (unknown) (unknown) (no date) (unknown) (unknown) Accession Numb er: [id number] (units unknown) (unknown) (unknown) (no date) (unknown) (unknown) Age/Sex: 61 / F Date of Service: (units unknown) (unknown) (unknown) (no date) (unknown) (unknown) [place] [address] (units unknown) (unknown) (unknown) (no date) (unknown) (unknown) Approved by: Marilia Yan M.D. on 07/05/2022 at 17:50 (units unknown) (unknown) (unknown) (no date) (unknown) (unknown) Bones: No frac tures or dislocations. Pelvic ring appears intact. No (units unknown) (unknown) (unknown) (no date) (unknown) (unknown) COMPARISON: None. (u nits unknown) (unknown) (unknown) (no date) (unknown) (unknown) : 3 Acct:[id number] (units unknown) (unknown) (unknown) (no date) (unknown) [...] unknown) (unknown) (unknown) (no date) (unknown) (unknown) [facility] (uni ts unknown) (unknown) (unknown) (no date) [...] unknown) (unknown) (unknown) (no date) (unknown) (unknown) [id number] (units unknown) (unknown) (unknown) (no date) (unknown) (unknown) 07/05/22 (units unknown) (unknown) (unknown) (no date) (unknown) (unknown) 1. No fracture. (uni ts unknown) (unknown) (unknown) (no date) (unknown) (unknown) [address] [place] [address] (un its unknown) (unknown) (unknown) (no date) (unknown) (unknown) 2. Increased r ight thyroid mass. Further assessment with nonemergent outpatient (units unknown) (unknown) (unknown) (no date) (unknown) (unknown) Accession Numb er: [id number] (units unknown) (unknown) (unknown) (no date) (unknown) (unknown) Accession Numb er: [id number] (units unknown) (unknown) (unknown) (no date) (unknown) (unknown) Age/Sex: 61 / F Date of Service: (units unknown) (unknown) (unknown) (no date) (unknown) (unknown) [place] [address] (units unknown) (unknown) (unknown) (no date) (unknown) [...] (unknown) (no date) (unknown) (unknown) COMPARISON: [facility], CT, C-SPINE WITHOUT CONTRAST, 10/25/2012, 15:33. (units unknown) (unknown) (unknown) (no date) (unknown) (unknown) COMPARISON: [facility], CT, HEAD WITHOUT CONTRAST, 02/04/2015, 16:36. (units unknown) (unknown) (unknown) (no date) (unknown) (unknown) CSF spaces: [place] cisterns are patent. No extra-axial fluid collections. The (units unknown) (unknown) (unknown) (no date) (unknown) (unknown) CT Scan Report (unit s unknown) (unknown) (unknown) (no date) (unknown) (unknown) : 3 Acct:[id number] (units unknown) (unknown) (unknown) (no date) (unknown) [...] unknown) (unknown) (unknown) (no date) (unknown) (unknown) [facility] (uni ts unknown) (unknown) (unknown) (no date) [...] unknown) (unknown) (unknown) (no date) (unknown) (unknown) [id number] (units unknown) (unknown) (unknown) (no date) (unknown) [...] (unknown) (no date) (unknown) (unknown) Consult to [facility] - [employer] [facility] (units unknown) (unknown) (unknown) (no date) (unknown) (unknown) Course (units unknown) (unknown) (unknown) (no date) (unknown) (unknown) : 3 Acct:[id number] (units unknown) (unknown) (unknown) (no date) (unknown) [...] unknown) (unknown) (unknown) (no date) (unknown) (unknown) [address] [address] (units unknown) (unknown) (unknown) (no date) (unknown) [...] (no date) (unknown) (unknown) hydrocodone-ac etamin ophen [Dawson] 5 MG/325 MG tablet (units unknown) (unknown) (unknown) (no date) (unknown) (unknown) lives independ ently: Yes (units unknown) (unknown) (unknown) (no date) (unknown) (unknown) loss of consciousness) minor contusion to the right elbow and somehow ended up (units unknown) (unknown) (unknown) (no date) (unknown) (unknown) marital status : (units unknown) (unknown) (unknown) (no date) (unknown) (unknown) mg tablet (Dawson) (u nits unknown) (unknown) (unknown) (no date) [...] unknown) (unknown) (unknown) (no date) (unknown) (unknown) [id number] (units unknown) (unknown) (unknown) (no date) (unknown) [...] (unknown) (no date) (unknown) (unknown) Consult to [facility] - [employer] [facility] (units unknown) (unknown) (unknown) (no date) (unknown) (unknown) Consultations: (unit s unknown) (unknown) (unknown) (no date) (unknown) (unknown) Course (units unknown) (unknown) (unknown) (no date) (unknown) (unknown) : 3 Acct:[id number] (units unknown) (unknown) (unknown) (no date) (unknown) [...] unknown) (unknown) (unknown) (no date) (unknown) (unknown) [place] [address] (units unknown) (unknown) (unknown) (no date) (unknown) [...] (no date) (unknown) (unknown) hydrocodone-ac etamin ophen [Dawson] 5 MG/325 MG tablet (units unknown) (unknown) [...] (unknown) (no date) (unknown) (unknown) mg tablet (Dawson) (u nits unknown) (unknown) (unknown) (no date) [...] unknown) (unknown) (unknown) (no date) (unknown) (unknown) [id number] (units unknown) (unknown) (unknown) (no date) (unknown) [...] (unknown) (no date) (unknown) (unknown) Consult to [facility] - [employer] [facility] (units unknown) (unknown) (unknown) (no date) (unknown) (unknown) Consultations: Dr. aClvillo, 6:00 p.m.. Recommendation is knee immobilizer and if (units unknown) (unknown) (unknown) (no date) (unknown) (unknown) Course (units unknown) (unknown) (unknown) (no date) (unknown) (unknown) : 3 Acct:[id number] (units unknown) (unknown) (unknown) (no date) (unknown) [...] unknown) (unknown) (unknown) (no date) (unknown) (unknown) [address] [address] (units unknown) (unknown) (unknown) (no date) (unknown) [...] (no date) (unknown) (unknown) hydrocodone-ac etamin ophen [Dawson] 5 MG/325 MG tablet (units unknown) (unknown) [...] (unknown) (no date) (unknown) (unknown) mg tablet (Dawson) (u nits unknown) (unknown) (unknown) (no date) [...] unknown) (unknown) (unknown) (no date) (unknown) (unknown) [id number] (units unknown) (unknown) (unknown) (no date) (unknown) [...] (unknown) (no date) (unknown) (unknown) Consult to [facility] - [employer] [facility] (units unknown) (unknown) (unknown) (no date) (unknown) (unknown) Consultations: Dr. Calvillo, 6:00 p.m.. Recommendation is knee immobilizer and if (units unknown) (unknown) (unknown) (no date) (unknown) (unknown) Course (units unknown) (unknown) (unknown) (no date) (unknown) (unknown) : 3 Acct:[id number] (units unknown) (unknown) (unknown) (no date) (unknown) [...] unknown) (unknown) (unknown) (no date) (unknown) (unknown) [address] [address] (units unknown) (unknown) (unknown) (no date) (unknown) [...] (no date) (unknown) (unknown) hydrocodone-ac etamin ophen [Dawson] 5 MG/325 MG tablet (units unknown) (unknown) [...] (unknown) (no date) (unknown) (unknown) mg tablet (Dawson) (u nits unknown) (unknown) (unknown) (no date) [...] unknown) (unknown) (unknown) (no date) (unknown) (unknown) [id number] (units unknown) (unknown) (unknown) (no date) (unknown) [...] date) (unknown) (unknown) 4 mg PO Q8H MT N (Reason: nausea and vomiting) Qty: 10 [...] (unknown) (no date) (unknown) (unknown) Consult to [facility] - [employer] [facility] (units unknown) (unknown) (unknown) (no date) (unknown) (unknown) Consultations: Dr. Calvillo, 6:00 p.m.. Recommendation is knee immobilizer and if (units unknown) (unknown) (unknown) (no date) (unknown) (unknown) Course (units unknown) (unknown) (unknown) (no date) (unknown) (unknown) : 3 Acct:[id number] (units unknown) (unknown) (unknown) (no date) (unknown) [...] unknown) (unknown) (unknown) (no date) (unknown) (unknown) [address] [address] (units unknown) (unknown) (unknown) (no date) (unknown) [...] (unknown) (no date) (unknown) (unknown) Social determi [facility] that may influence the patients condition: (units [...] (no date) (unknown) (unknown) hydrocodone-ac etamin ophen [Dawson] 5 MG/325 MG tablet (units unknown) (unknown) [...] (unknown) (no date) (unknown) (unknown) mg tablet (Dawson) (u nits unknown) (unknown) (unknown) (no date) [...] unknown) (unknown) (unknown) (no date) (unknown) (unknown) [id number] (units unknown) (unknown) (unknown) (no date) (unknown) [...] date) (unknown) (unknown) 4 mg PO Q8H MT N (Reason: nausea and vomiting) Qty: 10 [...] (unknown) (no date) (unknown) (unknown) Consult to [facility] - [employer] [facility] (units unknown) (unknown) (unknown) (no date) (unknown) (unknown) Consultations: Dr. Calvillo, 6:00 p.m.. Recommendation is knee immobilizer and if (units unknown) (unknown) (unknown) (no date) (unknown) (unknown) Course (units unknown) (unknown) (unknown) (no date) (unknown) (unknown) : 3 Acct:[id number] (units unknown) (unknown) (unknown) (no date) (unknown) [...] unknown) (unknown) (unknown) (no date) (unknown) (unknown) [address] [address] (units unknown) (unknown) (unknown) (no date) (unknown) [...] Using 400 mg o f ibuprofen (2 xowb-eha-xpfwiwb pills) and 1 Tylenol every 6 (units [...] (unknown) (unknown) You will need to contact [facility] on Friday to follow-up (units unknown) [...] (no date) (unknown) (unknown) hydrocodone-ac etamin ophen [Dawson] 5 MG/325 MG tablet (units unknown) (unknown) [...] (unknown) (no date) (unknown) (unknown) mg tablet (Dawson) (u nits unknown) (unknown) (unknown) (no date) [...] weeks. The off ice phone number is [phone]. Please let them know that you (units [...] unknown) (unknown) (unknown) (no date) (unknown) (unknown) [id number] (units unknown) (unknown) (unknown) (no date) (unknown) (unknown) 07/12/22 1119 (units unknown) (unknown) (unknown) (no date) (unknown) (unknown) Age/Sex: 61 / F (uni ts unknown) (unknown) (unknown) (no date) (unknown) (unknown) Changes to H+P: No ( units unknown) (unknown) (unknown) (no date) (unknown) (unknown) : 3 Acct:[id number] (units unknown) (unknown) (unknown) (no date) (unknown) (unknown) Date of Servic e: 07/12/22 (units unknown) (unknown) (unknown) (no date) (unknown) (unknown) History + Phys ical reviewed/Exam performed by Physician: Yes (units unknown) (unknown) (unknown) (no date) (unknown) (unknown) Interval Note (units unknown) (unknown) (unknown) (no date) (unknown) (unknown) [address] [address] (units unknown) (unknown) (unknown) (no date) (unknown) [...] unknown) (unknown) (unknown) (no date) (unknown) (unknown) [id number] (units unknown) (unknown) (unknown) (no date) (unknown) [...] (unknown) (no date) (unknown) (unknown) : 3 Acct:[id number] (units unknown) (unknown) (unknown) (no date) (unknown) [...] unknown) (unknown) (unknown) (no date) (unknown) (unknown) [address] [address] (units unknown) (unknown) (unknown) (no date) (unknown) [...] gauge cerclage wire was placed in a ofzyrz-hu-xfyfs fashion (units unknown) (unknown) (unknown) (no date) [...] (no date) (unknown) (unknown) was obtained w [facility] electrocautery. Closure was obtained with 3-0 Vicryl [...] date description facility 2022-07-05 00:00 Ex-smoker (finding) [facility] 2022-07-12 00:00 Ex-smoker (finding) [facility] Vital Signs date measurement value units 2022-07-05 [...]
[2022-08-18] MEDS ORDERED: iohexoL-300 100 ML VIAL ONE (00:38)
[2022-08-18 00:41] LABS: BASOPHILS % (AUTO) 0.2 %; EOSINOPHILS # (AUTO) 0.1 10^3/uL (0.0-0.7); EOSINOPHILS % (AUTO) 1.5 %; HCT - HEMATOCRIT 40.4 % (37.0-47.0); HGB - HEMOGLOBIN 13.1 g/dL (12.0-16.0); LYMPHOCYTES # (AUTO) 3.8 10^3/uL (1.5-3.5); LYMPHOCYTES % (AUTO) 45.2 %; MEAN CORPUSCULAR HGB CONC 32.4 g/dL (32.0-36.0); MEAN CORPUSCULAR VOLUME 89.6 fL (81.0-99.0); MEAN PLATELET VOLUME 8.9 fL (7.9-10.8); MONOCYTES # (AUTO) 0.7 10^3/uL (0.0-1.0); MONOCYTES % (AUTO) 7.7 %; NEUTROPHILS # (AUTO) 3.8 10^3/uL (1.5-6.6); NEUTROPHILS % (AUTO) 45.2 %; PLT - PLATELET COUNT 425 10^3/uL (130-450); RED BLOOD COUNT 4.51 10^6/uL (4.20-5.40); RED CELL DISTRIBUTION WIDTH 14.3 % (12.0-15.0); WHITE BLOOD COUNT 8.5 x10^3/uL (4.8-10.8)
[2022-08-18 00:46] LABS: VBG PCO2 32.7 mmHg (41-51); VBG PH 7.464 (7.31-7.41)
[2022-08-18 00:47] LABS: VBG HCO3 22.9 mmol/L (23-28); VBG OXYGEN SATURATION 72.9 % (60-80); VBG PO2 35.7 mmHg (25-47); VBG TOTAL CO2 23.9 mmol/L (24-29)
[2022-08-18 00:53] LABS: INR 1.2 (0.8-1.2); PT - PROTHROMBIN TIME 13.3 secs (9.9-12.6)
[2022-08-18 00:54] LABS: ALBUMIN 3.3 g/dL (3.2-5.5); ALBUMIN/GLOBULIN RATIO 0.8 (1.0-2.2); ALKALINE PHOSPHATASE 190 IU/L (42-121); ALT ALANINE AMINOTRANSFERASE 23 IU/L (10-60); AST ASPARTATE AMINOTRANSFERASE 26 IU/L (10-42); BILIRUBIN,TOTAL 0.6 mg/dL (0.2-1.0); BUN - BLOOD UREA NITROGEN 18 mg/dL (6-20); CALCIUM 9.2 mg/dL (8.5-10.3); CARBON DIOXIDE - CO2 23 mmol/L (21-32); CHLORIDE 105 mmol/L (101-111); CK- CREATINE KINASE 25 IU/L (22-269); CREATININE 0.5 mg/dL (0.4-1.0); ETOH - ETHANOL < 5.0 mg/dL; GFR - MDRD 126 (>89); GLUCOSE 186 mg/dL (70-100); LIPASE 37 U/L (22-51); MAGNESIUM 1.9 mg/dL (1.7-2.8); POTASSIUM 3.5 mmol/L (3.5-5.0); SODIUM 138 mmol/L (135-145); TOTAL PROTEIN 7.7 g/dL (6.7-8.2)
[2022-08-18] MEDS ORDERED: guaiFENesin/CODEINE 5 ML UDC PO STA (01:53)
[2022-08-18] MEDS ORDERED: IPRATROPIUM/ALBUTEROL 3 ML NEB INH STA (01:53)
[2022-08-18] MEDS ORDERED: iohexoL-300 100 ML VIAL IVP ONE (03:03)
[2022-08-18] MEDS ORDERED: AZITHROMYCIN 250 MG TABLET PO STA (03:16)
[2022-08-18] MEDS ORDERED: predniSONE 20 MG TABLET PO STA (03:16)
[2022-08-18 03:18] LABS: MUDS CUTOFF CONCENTRATIONS CUTOFF CONC BELOW:
[2022-08-18 03:20] LABS: BILIRUBIN,URINE NEGATIVE (NEGATIVE); GLUCOSE, URINE (UA) NEGATIVE (NEGATIVE); KETONES,URINE (UA) NEGATIVE (NEGATIVE); LEUKOCYTE ESTERASE, URINE SMALL (NEGATIVE); NITRITE,URINE NEGATIVE (NEGATIVE); OCCULT BLOOD,URINE TRACE-INTA (NEGATIVE); PH,URINE 5.5 PH (5.0-7.5); PROTEIN,URINE NEGATIVE (NEGATIVE); UROBILINOGEN,URINE 1 (NORMAL) E.U./dL (NORMAL)
[2022-08-18 03:23] LABS: CLARITY,URINE CLEAR (CLEAR)
--- NOTE | 2022-08-18 03:26 | ED Physician Documentation ---
History of Present Illness - Stated complaint Stated Complaint: SOA - Chief complaint Chief Complaint: Resp - Additonal information Additional information: Patient is a 61-year-old female presenting to the emergency department with chief complaint of cough and shortness of breath.Recent hospitalization for saddle pulmonary emboli identified 08/06/2022. Has been having some upper respiratory tract style symptoms for the last few days. This evening at approximately 10 PM developed cough and an inability to catch her breath. Denies any new chest pain. Has been compliant with her prescribed Eliquis. Review of Systems Constitutional: denies: Fever Eyes: denies: Loss of vision Ears: denies: Loss of hearing Nose: denies: Rhinorrhea / runny nose Throat: denies: Dental pain / toothache Cardiac: denies: Chest pain / pressure Respiratory: reports: Dyspnea, Cough GI: denies: Abdominal Pain : denies: Dysuria PD PAST MEDICAL HISTORY - Past Medical History Past Medical History: Yes Cardiovascular: Hypertension, Pulmonary embolism Endocrine/Autoimmune: Type 2 diabetes Other Past Medical History: Saddle PE - Past Surgical History Past Surgical History: Yes General: Appendectomy Ortho: Other /PRODUCT DEVELOPMENT CHEMIST: Hysterectomy - Present Medications Home Medications: Ambulatory Orders Medication Instructions Recorded Confirmed Albuterol Sulfate [Proair 90 mcg IH Q4HR PRN 08/18/22 08/18/22 Digihaler] Apixaban [Eliquis] 5 mg ORAL BID 08/18/22 08/18/22 Azithromycin [Zithromax] 0 mg PO DAILY #4 tablet 08/18/22 Benzonatate [Tessalon] 100 mg PO TID #30 cap 08/18/22 Codeine Phosphate/Guaifenesin 10 ml PO DAILY PM #100 ml 08/18/22 [Codeine-Guaifen 10-100 mg/5 ml] Fluoxetine HCl [Prozac] 40 mg PO DAILY 08/18/22 08/18/22 Glimepiride [Amaryl] 8 mg PO DAILY 08/18/22 08/18/22 Metoprolol Succinate [Toprol Xl] 25 mg PO DAILY 08/18/22 08/18/22 oxyCODONE [Roxicodone] 5 mg PO Q6HR PRN 08/18/22 08/18/22 predniSONE [Deltasone] 40 mg PO DAILY #5 tablet 08/18/22 - Allergies Allergies/Adverse Reactions: Allergies Allergy/AdvReac Type Severity Reaction Status Date / Time No Known Drug Allergies Allergy Verified 08/05/22 17:20 - Social History Does the pt smoke?: No Smoking Status: Never smoker Does the pt drink ETOH?: No Does the pt have substance abuse?: No - Immunizations Immunizations are current?: Yes PD ED PE NORMAL - General General: Alert and oriented X 3, No acute distress, Well developed/nourished, Other - HEENT HEENT: Atraumatic - Neck Neck: Supple, no meningeal sign - Cardiac Cardiac: RRR, No gallop - Respiratory Respiratory: No respiratory distress, Clear bilaterally - Abdomen Abdomen: Normal bowel sounds - Female Female : Deferred - Back Back: No CVA TTP - Extremities Extremities: Other (Left knee brace in place.) Results - Vitals Vitals: Vital Signs - 24 hr 08/18/22 08/18/22 08/18/22 00:16 00:44 01:05 Temperature 36.8 C Heart Rate 81 73 76 Respiratory 24 17 16 Rate Blood Pressure 147/92 H 147/92 H 140/95 H O2 Saturation 100 100 99 08/18/22 08/18/22 08/18/22 01:30 02:15 03:08 Temperature Heart Rate 78 80 88 Respiratory 20 24 25 H Rate Blood Pressure 138/88 H 141/76 H O2 Saturation 99 97 Oxygen O2 Source Room air - EKG (time done) 0031 EKG releavant findings:: EKG personally interpreted by author of this note. Relevant findings are: Sinus rhythm with rate 76 bpm. Normal axis. Right bundle branch block. S1Q3T3 pattern. Diffuse T wave inversions in the early precordial leads. No ST segment elevations. No change from previous. - Labs Labs: Laboratory Tests 08/18/22 08/18/22 08/18/22 00:27 00:35 00:35 WBC 8.5 RBC 4.51 Hgb 13.1 Hct 40.4 MCV 89.6 MCH 29.0 MCHC 32.4 RDW 14.3 Plt Count 425 MPV 8.9 Neut # (Auto) 3.8 Lymph # (Auto) 3.8 H Yell # (Auto) 0.7 Eos # (Auto) 0.1 Baso # (Auto) 0.0 Absolute Nucleated RBC 0.00 Nucleated RBC % 0.0 PT 13.3 H INR 1.2 VBG pH VBG pCO2 VBG pO2 VBG HCO3 VBG Total CO2 VBG O2 Saturation VBG Base Excess Sodium Potassium Chloride Carbon Dioxide Anion Gap BUN Creatinine Estimated GFR (MDRD) Glucose Calcium Magnesium Total Bilirubin AST ALT Alkaline Phosphatase Total Creatine Kinase Troponin I High Sens B-Natriuretic Peptide Total Protein Albumin Globulin Albumin/Globulin Ratio Lipase Urine Color Urine Clarity Urine pH Ur Specific [place] Urine Protein Urine Glucose (UA) Urine Ketones Urine Occult Blood Urine Nitrite Urine Bilirubin Urine Urobilinogen Ur Leukocyte Esterase Ur Microscopic Review Urine Culture Comments Ethyl Alcohol SARS-CoV-2 (PCR) NOT DETECTED 08/18/22 08/18/22 08/18/22 00:35 00:35 00:35 WBC RBC Hgb Hct MCV MCH MCHC RDW Plt Count MPV Neut # (Auto) Lymph # (Auto) Yell # (Auto) Eos # (Auto) Baso # (Auto) Absolute Nucleated RBC Nucleated RBC % PT INR VBG pH VBG pCO2 VBG pO2 VBG HCO3 VBG Total CO2 VBG O2 Saturation VBG Base Excess Sodium 138 Potassium 3.5 Chloride 105 Carbon Dioxide 23 Anion Gap 10.0 BUN 18 Creatinine 0.5 Estimated GFR (MDRD) 126 Glucose 186 H Calcium 9.2 Magnesium 1.9 Total Bilirubin 0.6 AST 26 ALT 23 Alkaline Phosphatase 190 H Total Creatine Kinase 25 Troponin I High Sens 6.1 B-Natriuretic Peptide 25 Total Protein 7.7 Albumin 3.3 Globulin 4.4 H Albumin/Globulin Ratio 0.8 L Lipase 37 Urine Color Urine Clarity Urine pH Ur Specific [place] Urine Protein Urine Glucose (UA) Urine Ketones Urine Occult Blood Urine Nitrite Urine Bilirubin Urine Urobilinogen Ur Leukocyte Esterase Ur Microscopic Review Urine Culture Comments Ethyl Alcohol < 5.0 SARS-CoV-2 (PCR) 08/18/22 08/18/22 00:35 03:14 WBC RBC Hgb Hct MCV MCH MCHC RDW Plt Count MPV Neut # (Auto) Lymph # (Auto) Yell # (Auto) Eos # (Auto) Baso # (Auto) Absolute Nucleated RBC Nucleated RBC % PT INR VBG pH 7.464 H VBG pCO2 32.7 L VBG pO2 35.7 VBG HCO3 22.9 L VBG Total CO2 23.9 L VBG O2 Saturation 72.9 VBG Base Excess 0.0 Sodium Potassium Chloride Carbon Dioxide Anion Gap BUN Creatinine Estimated GFR (MDRD) Glucose Calcium Magnesium Total Bilirubin AST ALT Alkaline Phosphatase Total Creatine Kinase Troponin I High Sens B-Natriuretic Peptide Total Protein Albumin Globulin Albumin/Globulin Ratio Lipase Urine Color YELLOW Urine Clarity CLEAR Urine pH 5.5 Ur Specific [place] 1.010 Urine Protein NEGATIVE Urine Glucose (UA) NEGATIVE Urine Ketones NEGATIVE Urine Occult Blood TRACE-INTA Urine Nitrite NEGATIVE Urine Bilirubin NEGATIVE Urine Urobilinogen 1 (NORMAL) Ur Leukocyte Esterase SMALL H Ur Microscopic Review INDICATED Urine Culture Comments Not Reportable Ethyl Alcohol SARS-CoV-2 (PCR) PD Medical Decision Making - ED course Complexity details: reviewed old records, reviewed results, re-evaluated pat ient, considered differential, d/w patient ED course: Patient is 61-year-old female presenting to the emergency department with cough and shortness of breath. This is in the setting of recent hospitalization for saddle pulmonary emboli for which the patient was discharged from [facility] 3 days ago. She is afebrile, hemodynamically stable on arrival to the emergency department. EKG as outlined above demonstrated a stable right bundle branch block pattern unchanged from previous. Labs obtained all generally within normal limits or nonactionable. Of note no elevation in high-sensitivity troponin or beta natruretic peptide. Repeat CTA demonstrates decreased clot burden as well as decreased right heart strain. There is an area of groundglass opacification and a small left pleural effusion. This was identified by radiology as mild pulmonary edema however nothing in the patient's current clinical presentation is suggestive of acute pulmonary edema. She was given a breathing treatment as well as a Tessalon Perle and a small amount of codeine-containing Robitussin with significant improvement in her symptoms. Monitored in the emergency department for several hours and reevaluated on multiple occasions and found to be resting comfortably. Given her recent hospitalization as well as the groundglass opacification that I believe is somewhat concerning for possible developing pneumonia I will initiate a course of azithromycin. Additionally given that she responded well to breathing treatment here I will encourage regular use of her albuterol inhaler at home as well as start a short course of oral prednisone. Additionally she will be discharged with Tessalon Perles as well as Robitussin for use at home. Encourage careful follow-up with primary care return to the emergency department as needed. Departure - Departure Disposition: 01 Home, Self Care Clinical Impression: SOB (shortness of breath) Instructions: ED Dyspnea Shortness of Breath Prescriptions: Codeine Phosphate/Guaifenesin [Codeine-Guaifen 10-100 mg/5 ml] 10 ml PO DAILY PM #100 ml predniSONE [Deltasone] 40 mg PO DAILY #5 tablet Benzonatate [Tessalon] 100 mg PO TID #30 cap Azithromycin [Zithromax] 0 mg PO DAILY #4 tablet Comments: Thank you for allowing us to care for you today at [facility]. Today in the emergency department your evaluated for any possible life- threatening medical emergency. The testing performed in the emergency department including your blood work, EKG and the CT scan performed was very reassuring. The previously identified pulmonary embolism appears much smaller on the imaging performed today. I am glad that you are feeling better. As we discussed I would like you to use your albuterol inhaler at home regularly. I would suggest using it no less than 4 puffs every 4 hours for the next 3 to 4 days as needed. Also be discharging with a short course of prednisone to take at home. In addition to this I will be discharging with a prescription for Tessalon Per les for use during the day as well as a codeine-containing cough syrup to help with cough at night. Please be aware that this medication is both sedating and habit-forming. It should not be taken in conjunction with other sedating medications including your currently prescribed oxycodone. Please follow-up with your primary care doctor soon as possible. If at anytime you have new or worsening symptoms please do not hesitate to return.
[2022-08-18 03:27] LABS: BACTERIA,URINE Few /HPF (None Seen); RBC,URINE 0-5 /HPF (0-5); SQUAMOUS EPITHELIAL CELL,UR MOD Squamous (<= Few)
[2022-08-18 03:32] LABS: AMPHETAMINE SCREEN,URINE NEGATIVE (NEGATIVE); BARBITURATE SCREEN,UR NEGATIVE (NEGATIVE); BENZODIAZEPINES SCREEN, URINE NEGATIVE (NEGATIVE); COCAINE SCREEN URINE NEGATIVE (NEGATIVE); METHADONE SCREEN, URINE NEGATIVE (NEGATIVE); METHAMPHETAMINES SCREEN, URINE NEGATIVE (NEGATIVE); OPIATE SCREEN, URINE POSITIVE (NEGATIVE); OXYCODONE SCREEN, URINE NEGATIVE (NEGATIVE); PROPOXYPHENE SCREEN, URINE NEGATIVE (NEGATIVE); THC CANNABINOID SCREEN, URINE NEGATIVE (NEGATIVE); TRICYCLIC ANTIDEPRESSANT,URINE NEGATIVE (NEGATIVE)
[2022-08-18 03:40] VITALS: BP 136/87
--- NOTE | 2022-08-18 09:18 | CT Report ---
PROCEDURE: CT angiogram chest with contrast INDICATIONS: Recent saddle PE, worsening SOB CONTRAST: Omni 300 80ml TECHNIQUE: After the administration of intravenous contrast, 2 mm axial images were acquired from the pulmonary apices to the posterior costophrenic angles during the arterial phase. In addition, 1 mm lung kernel and 5 mm soft tissue kernel reconstructions were performed. coronal oblique maximum intensity project ion (MIP) reformats, 8 mm axial MIP, and 5 mm coronal and sagittal MPR reformats were then performed through the thorax. For radiation dose reduction, the following was used: automated exposure control, adjustment of mA and/or kV according to patient size. COMPARISON: 08/05/2022 FINDINGS: Image quality: Excellent. Large vessels: There are bilateral segmental and subsegmental pulmonary emboli noted. Overall clot bu rden has improved from the prior Lungs and pleura: Mild groundglass density noted in the left lower lobe. Small left pleural effusion. No suspicious pulmonary nodules which require follow up. Mediastinum: Heart size is unremarkable. No evidence of right heart strain No pericardial effusion. N o large vessel abnormality. No mediastinal adenopathy by size criteria. Chest wall and lower neck: Thyroid is unremarkable. No axillary or supraclavicular adenopathy by size . Bones: No aggressive osseous abnormality. Upper Abdomen: Unremarkable. IMPRESSION: Persistent but improving bilateral segmental and subsegmental pulmonary emboli. No evidence of heart strain. Small left pleural effusion and probable mild pulmonary edema Note: Final report is concordant with preliminary interpretation provided by [employer] Reviewed by: Micheal Zhu MD on 08/18/2022 8:17 AM [email or web address] Approved by: Micheal Zhu MD on 08/18/2022 8:17 AM AKDT Station ID: [id number]
== END 2022-08-18 03:53 | disposition home or self-care (01) ==
LOC: EDUNIT# → ED 00:13
DX: R05.9 Cough, unspecified (principal); R06.02 Shortness of breath; J90 Pleural effusion, not elsewhere classified; I45.10 Unspecified right bundle-branch block; I26.99 Other pulmonary embolism without acute cor pulmonale; Z20.822 Contact with and (suspected) exposure to COVID-19
CPT/HCPCS: 36415; 71275; 80053; 80306; 81001; 82550; 82803; 83690; 83735; 83880; 84484; 85025; 85610; 87635; 93005; 94640; 99284; A9270; G0480; J7512; Q9967; 80320; 81003; 87086

== ENCOUNTER 2022-09-26 08:00 | Outpatient (CLI) | payer MEDICARE, OTHER ==
--- NOTE | 2022-09-26 17:10 | XRAY Report ---
PROCEDURE: Knee 3 View LT INDICATIONS: LEFT KNEE PATELLA ORIF TECHNIQUE: 3 views of the left knee(s) were acquired. COMPARISON: X-ray left knee 06/27/2022 FINDINGS: Bones: No fractures or dislocations. No suspicious bony lesions. Wire fusion of the patella is pr esent. Hardware is intact with good anatomic alignment. There is moderate bilateral medial and latera l compartment narrowing as well as moderate left patellofemoral compartment narrowing. Soft tissues: Mild knee joint effusion. No suspicious soft tissue calcifications or masses. IMPRESSION: ORIF of the patella. 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 Reviewed by: Vanessa Mariano MD on 09/26/2022 5:09 PM PDT Approved by: Vanessa Mariano MD on 09/26/2022 5:09 PM PDT Station ID: [id number]
== END 2022-09-26 23:59 | disposition home or self-care (01) ==
LOC: DI.WOS 08:00
PROVIDERS: ATTEND Physician Assistant Surgical
DX: S82.092D Other fracture of left patella, subsequent encounter for closed fracture with routine healing (principal); M17.0 Bilateral primary osteoarthritis of knee

== ENCOUNTER 2022-11-06 12:49 | Outpatient (CLI) | payer MEDICARE, OTHER ==
[2022-11-06 13:23] LABS: CREATININE 0.7 mg/dL (0.6-1.3)
== END 2022-11-06 12:50 | disposition home or self-care (01) ==
LOC: LAB 12:49
PROVIDERS: ATTEND Physician Assistant
DX: Z09 Encounter for follow-up examination after completed treatment for conditions other than malignant neoplasm (principal); Z86.711 Personal history of pulmonary embolism
CPT/HCPCS: 36415; 82565

== ENCOUNTER 2022-11-06 12:52 | Outpatient (CLI) | payer MEDICARE, OTHER ==
[2022-11-06] MEDS ORDERED: iohexoL-300 100 ML VIAL IVP ONE (16:34)
--- NOTE | 2022-11-06 18:37 | CT Report ---
PROCEDURE: ANGIO CHEST W/WO INDICATIONS: HISTORY OF PULMONDARY EMBOLUS CONTRAST: omni 300 80ml TECHNIQUE: After the administration of intravenous contrast, 2 mm axial images were acquired from the pulmonary apices to the posterior costophrenic angles during the arterial phase. In addition, 1 mm lung kernel and 5 mm soft tissue kernel reconstructions were performed. 3-dimensional coronal oblique maximum int ensity projection (MIP) reformats, 8 mm axial MIP, and 5 mm coronal and sagittal MPR reformats were t hen performed through the thorax. For radiation dose reduction, the following was used: automated exp osure control, adjustment of mA and/or kV according to patient size. COMPARISON: 08/18/2022 FINDINGS: Large vessels: Interval resolution or near resolution of previously demonstrated pulmonary emboli, po ssible minimal chronic emboli present for example at the right lower lobe proximal segmental arteries . Lungs and pleura: No consolidation. No pleural effusions. No pneumothorax. Mediastinum: No pericardial effusion. no mediastinal adenopathy by size criteria. Chest wall and lower neck: No axillary or supraclavicular adenopathy by size. Bones: No aggressive osseous abnormality. Upper Abdomen: Unremarkable. IMPRESSION: Interval resolution or near resolution of previously demonstrated pulmonary emboli, possible minimal chronic emboli present. No CT evidence of right heart strain. Reviewed by: Brennan Grijalva MD on 11/06/2022 6:35 PM PDT Approved by: Brennan Grijalva MD on 11/06/2022 6:35 PM PDT Station ID: [id number]
== END 2022-11-06 12:53 | disposition home or self-care (01) ==
LOC: DI 12:52
PROVIDERS: ATTEND Physician Assistant
DX: Z09 Encounter for follow-up examination after completed treatment for conditions other than malignant neoplasm (principal); Z86.711 Personal history of pulmonary embolism
CPT/HCPCS: 36415; 71275; 82565; Q9967

== ENCOUNTER 2023-01-06 08:00 | Outpatient (CLI) | payer MEDICARE, OTHER ==
--- NOTE | 2023-01-06 16:17 | XRAY Report ---
PROCEDURE: Knee 3 View LT INDICATIONS: LEFT PATELLA ORIF TECHNIQUE: 3 views of the left knee(s) were acquired. COMPARISON: X-ray knee 06/27/2022, 09/26/2022 FINDINGS: Bones: ORIF of the patella is present. Hardware is intact without evidence of hardware fracture or p eriprosthetic lucency to suggest loosening. No definitive fracture lucencies persist. There is bicomp artmental arthritic change on the right. Soft tissues: No knee joint effusion. No suspicious soft tissue calcifications or masses. IMPRESSION: Stable alignment of patellar ORIF. Reviewed by: Vanessa Mariano MD on 01/06/2023 4:15 PM PDT Approved by: Vanessa Mariano MD on 01/06/2023 4:15 PM PDT Station ID: [id number]
== END 2023-01-06 23:59 | disposition home or self-care (01) ==
LOC: DI.WOS 08:00
PROVIDERS: ATTEND Physician Assistant Surgical
DX: S82.092D Other fracture of left patella, subsequent encounter for closed fracture with routine healing (principal)

== ENCOUNTER 2023-02-03 07:52 | Outpatient (CLI) | payer MEDICARE ==
[2023-02-03 12:46] LABS: BASOPHILS % (AUTO) 0.3 %; EOSINOPHILS # (AUTO) 0.1 10^3/uL (0.0-0.7); EOSINOPHILS % (AUTO) 1.6 %; HCT - HEMATOCRIT 45.3 % (37.0-47.0); HGB - HEMOGLOBIN 14.5 g/dL (12.0-16.0); LYMPHOCYTES # (AUTO) 2.6 10^3/uL (1.5-3.5); LYMPHOCYTES % (AUTO) 39.1 %; MEAN CORPUSCULAR HEMOGLOBIN 28.4 pg (27.0-31.0); MEAN CORPUSCULAR VOLUME 88.8 fL (81.0-99.0); MEAN PLATELET VOLUME 10.8 fL (7.9-10.8); MONOCYTES # (AUTO) 0.4 10^3/uL (0.0-1.0); MONOCYTES % (AUTO) 6.5 %; NEUTROPHILS # (AUTO) 3.5 10^3/uL (1.5-6.6); NEUTROPHILS % (AUTO) 52.4 %; PLT - PLATELET COUNT 294 10^3/uL (130-450); RED CELL DISTRIBUTION WIDTH 13.8 % (12.0-15.0); WHITE BLOOD COUNT 6.8 x10^3/uL (4.8-10.8)
[2023-02-03 13:25] LABS: ALBUMIN/GLOBULIN RATIO 1.3 (1.0-2.2); ALKALINE PHOSPHATASE 155 IU/L (42-121); ALT ALANINE AMINOTRANSFERASE 19 IU/L (10-60); AST ASPARTATE AMINOTRANSFERASE 20 IU/L (10-42); BILIRUBIN,TOTAL 0.5 mg/dL (0.2-1.0); BUN - BLOOD UREA NITROGEN 14 mg/dL (6-20); CALCIUM 9.4 mg/dL (8.5-10.3); CARBON DIOXIDE - CO2 30 mmol/L (21-32); CHLORIDE 100 mmol/L (101-111); CHOLESTEROL 176 mg/dL; CREATININE 0.6 mg/dL (0.6-1.3); GFR - MDRD 102 (>89); GLUCOSE 388 mg/dL (74-104); HDL CHOLESTEROL 59 mg/dL; LDL CHOLESTEROL,CALCULATED 92 mg/dL; LDL/HDL RATIO 1.6 (<4.4); POTASSIUM 4.3 mmol/L (3.5-4.5); SODIUM 135 mmol/L (135-145); TOTAL PROTEIN 7.2 g/dL (6.4-8.9); TRIGLYCERIDES 124 mg/dL (48-352); VLDL CHOLESTEROL 25 mg/dL
[2023-02-03 14:06] LABS: CREATININE,URINE 37.4 mg/dL; MICROALBUM/CREATININE RATIO,UR 112.3 ug/mg (<30.0); MICROALBUMIN,URINE 4.2 mg/dL
[2023-02-03 14:18] LABS: ESTIMATED AVERAGE GLUCOSE 332 mg/dL (70-100); HEMOGLOBIN A1c% 13.2 % (4.27-6.07)
== END 2023-02-03 07:53 | disposition home or self-care (01) ==
LOC: LAB.N 07:52
PROVIDERS: ATTEND Physician Assistant
DX: E11.65 Type 2 diabetes mellitus with hyperglycemia (principal)
CPT/HCPCS: 36415; 80053; 80061; 82043; 82570; 83036; 83721; 85025

== ENCOUNTER 2023-05-01 08:30 | Outpatient (CLI) | payer MEDICARE, OTHER ==
[2023-05-01 11:40] LABS: BASOPHILS % (AUTO) 0.3 %; EOSINOPHILS # (AUTO) 0.1 10^3/uL (0.0-0.7); EOSINOPHILS % (AUTO) 1.4 %; HCT - HEMATOCRIT 44.9 % (37.0-47.0); HGB - HEMOGLOBIN 14.4 g/dL (12.0-16.0); LYMPHOCYTES # (AUTO) 3.4 10^3/uL (1.5-3.5); LYMPHOCYTES % (AUTO) 42.9 %; MEAN CORPUSCULAR HEMOGLOBIN 28.6 pg (27.0-31.0); MEAN CORPUSCULAR HGB CONC 32.1 g/dL (32.0-36.0); MEAN CORPUSCULAR VOLUME 89.1 fL (81.0-99.0); MEAN PLATELET VOLUME 10.1 fL (7.9-10.8); MONOCYTES # (AUTO) 0.4 10^3/uL (0.0-1.0); MONOCYTES % (AUTO) 5.5 %; NEUTROPHILS % (AUTO) 49.5 %; PLT - PLATELET COUNT 303 10^3/uL (130-450); RED BLOOD COUNT 5.04 10^6/uL (4.20-5.40); RED CELL DISTRIBUTION WIDTH 13.4 % (12.0-15.0)
[2023-05-01 11:51] LABS: ESTIMATED AVERAGE GLUCOSE 303 mg/dL (70-100); HEMOGLOBIN A1c% 12.2 % (4.27-6.07)
[2023-05-01 12:01] LABS: ALBUMIN 3.9 g/dL (3.2-5.5); ALBUMIN/GLOBULIN RATIO 1.1 (1.0-2.2); BILIRUBIN,TOTAL 0.7 mg/dL (0.2-1.0); CALCIUM 9.4 mg/dL (8.5-10.3); CREATININE 0.6 mg/dL (0.6-1.3); POTASSIUM 4.4 mmol/L (3.5-4.5); TOTAL PROTEIN 7.5 g/dL (6.4-8.9)
== END 2023-05-01 08:31 | disposition home or self-care (01) ==
LOC: LAB.N 08:30
PROVIDERS: ATTEND Physician Assistant
DX: E11.65 Type 2 diabetes mellitus with hyperglycemia (principal)
CPT/HCPCS: 36415; 80053; 83036; 85025

== ENCOUNTER 2023-05-21 08:52 | Outpatient (CLI) | payer MEDICARE, OTHER ==
--- NOTE | 2023-05-22 08:35 | Mammography Report ---
BILATERAL DIGITAL SCREENING MAMMOGRAM 3D/2D: 05/21/2023 CLINICAL: Routine screening. Comparison is made to exams dated: 07/30/2010 mammogram and 06/02/2008 mammogram - [facility]. There are scattered areas of fibroglandular density in both breasts (category b / 25%-50% glandular t issue). No significant masses, calcifications, or other findings are seen in either breast. There has been no significant interval change. IMPRESSION: NEGATIVE There is no mammographic evidence of malignancy. A 1 year screening mammogram is recommended. Based on the Tyrer Cuzick model (a risk assessment model) the patient's lifetime risk is 5.1% and her 10 year risk is 2.0%. According to the ACR, ACS, and NCCN guidelines, an annual breast MRI exam jaden g with mammogram is recommended if the patient's lifetime risk is 20% or greater. This exam was interpreted at Station ID: [id number]. NOTE: For mammograms, a report in lay terms will be sent to the patient. Approximately 15% of breast malignancies will not be visualized mammographically. In the management of a palpable breast mass, a negative mammogram must not discourage biopsy of a clinically suspicious lesion. Electronically Signed By: Rajendra barrientos/penrad:05/21/2023 20:46:16 ACR BI-RADS Category 1: Negative 3341F PARENCHYMAL PATTERN: (A) - The breast(s) demonstrate(s) scattered fibroglandular densities. BI-RADS CATEGORY: (1) - 1 RECOMMENDATION: (ANNUAL) - Recommend routine annual screening mammography. [id number] 1 year screening LATERALITY: (B)
== END 2023-05-21 08:53 | disposition home or self-care (01) ==
LOC: DI.N 08:52
DX: Z12.31 Encounter for screening mammogram for malignant neoplasm of breast (principal); R92.323 Mammographic fibroglandular density, bilateral breasts

== ENCOUNTER 2023-09-17 11:40 | Outpatient (CLI) | payer MEDICARE, OTHER ==
[2023-09-17 18:10] LABS: CALCIUM 9.3 mg/dL (8.5-10.3); CREATININE 0.6 mg/dL (0.6-1.3); POTASSIUM 4.5 mmol/L (3.5-4.5)
[2023-09-17 22:53] LABS: ESTIMATED AVERAGE GLUCOSE 312 mg/dL (70-100); HEMOGLOBIN A1c% 12.5 % (4.27-6.07)
== END 2023-09-17 11:41 | disposition home or self-care (01) ==
LOC: LAB.N 11:40
PROVIDERS: ATTEND Physician Assistant
DX: E11.65 Type 2 diabetes mellitus with hyperglycemia (principal)
CPT/HCPCS: 36415; 80048; 83036

== ENCOUNTER 2023-11-20 08:28 | Outpatient (CLI) | payer MEDICARE, OTHER ==
[2023-11-20 12:20] LABS: CALCIUM 9.3 mg/dL (8.5-10.3); CREATININE 0.5 mg/dL (0.6-1.3); POTASSIUM 4.3 mmol/L (3.5-4.5)
== END 2023-11-20 08:29 | disposition home or self-care (01) ==
LOC: LAB.N 08:28
PROVIDERS: ATTEND Physician Assistant
DX: I10 Essential (primary) hypertension (principal)
CPT/HCPCS: 36415; 80048